=== PATIENT | female | born 1940 | race Caucasian/White ===

== ENCOUNTER 2024-07-23 10:27 | Emergency (ER) | payer OTHER ==
[2024-07-23] MEDS ORDERED: ONDANSETRON 4 MG/2 ML VIAL ONE (11:25)
[2024-07-23] MEDS ORDERED: NA CHLORIDE 0.9% 500 ML ONE (11:26)
[2024-07-23 11:47] LABS: Absolute Lymphocytes (CBC) 1.1 K/uL (0.7-4.9); Absolute Monocytes 0.3 K/uL (0.1-1.3); Absolute Neutrophil 3.5 K/uL (1.8-8.0); Basophils % 0.6 % (0-1.3); Eosinophils % 0.3 % (0-4.4); Hematocrit 43.9 % (36.0-45.0); Hemoglobin 14.6 g/dL (12.0-15.0); Lymphocytes % 22.5 % (15.3-44.8); MCH 31.6 pg (27.0-35.0); MCHC 33.3 g/dL (32.0-36.0); MCV 94.9 fL (80-100); MPV 8.1 fL (7.6-11.3); Monocytes % 5.9 % (3.3-12.3); Neutrophils % 70.7 % (41.7-73.7); Platelets 139 thou/uL (152-406); RBC Red Blood Cell Count 4.62 M/uL (3.86-4.86); Red Cell Distribution Width 15.8 % (12.1-15.2)
[2024-07-23 12:46] LABS: Albumin 3.3 g/dL (3.4-5.0); Albumin/Globulin Ratio 0.7 (1.1-1.8); Anion Gap 6.6 mEq/L (5.0-15.0); Bilirubin Total 1.5 mg/dL (0.2-1.0); Globulin 4.6 g/dL (2.3-3.5); Potassium 3.6 mEq/L (3.5-5.1); Protein, Total 7.9 g/dL (6.4-8.2)
--- NOTE | 2024-07-23 13:46 | RAD REPORT ---
EXAMINATION: CT Abdomen Pelvis Wo Contrast CLINICAL INDICATION: Female, 84 years old. Abd pain;Nausea / vomiting TECHNIQUE: CT abdomen and pelvis was performed, without IV contrast, as per department protocol. Axia l, sagittal and coronal reconstructions were obtained. One or more of the following dose reduction techniques were used: Automated exposure control, adjustment of the mA and kV according to the patien t size, and iterative reconstruction. Unless otherwise specified, incidental findings do not require dedicated imaging follow-up. COMPARISON: 07/28/2017 FINDINGS: The lack of intravenous contrast limits the sensitivity of this exam for evaluation of solid visceral organs, vascular structures, and retroperitoneum. LOWER CHEST: Mild left more than right bronchiectatic changes and bronchial wall thickening, essentia lly unchanged.. LIVER: Normal in size and contour. No focal lesion. BILIARY SYSTEM: Status post cholecystectomy. SPLEEN: Normal size. No focal lesion. 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 PANCREAS: No mass, ductal dilation, or faisal-pancreatic fluid. ADRENALS: Normal; no mass. KIDNEYS AND URETERS: Normal size and contour. No hydronephrosis. Multiple bilateral renal hypoattenua ting exophytic lesions, suggestive of cysts, not significantly changed. URINARY BLADDER: Normal contour. GASTROINTESTINAL TRACT: No evidence of bowel obstruction, significant free fluid, free air or abscess . Distal colonic diverticulosis. APPENDIX: Normal appendix. LYMPH NODES: No lymphadenopathy. MUSCULOSKELETAL: No acute or suspicious osseous abnormality. ADDITIONAL FINDINGS: Fusiform infrarenal abdominal aortic aneurysm measuring 3.5 x 3 cm in greatest d iameters, increased in size from 2.8 cm in greatest diameter on the prior exam. . IMPRESSION: No acute or concerning abnormalities in the abdomen or pelvis, with evaluation limited by lack of IV contrast. Enlarging fusiform infrarenal abdominal aortic aneurysm now measuring 3.5 cm in greatest caliber. For management of fusiform aneurysmal abdominal aortas: Recommend follow-up every 2 years. Note: For AAA enlargement of > 0.5 cm in 6 months or > 1 cm in 1 year, recommend vascular consultat ion. References: J Am Ayala Radiol 2013; 10(10):789-794; J Vasc Surg. 2018; 67:2-77 Other incidental findings as above, stable.
--- NOTE | 2024-07-23 13:54 | EDPHYS ---
Physician Documentation [facility] Name: Tomasa Daniel Age: 84 yrs Sex: Female : 1940 Arrival Date: 07/23/2024 Time: 10:27 Bed 18 Private MD: ED Physician Anthony Powers HPI: 07/23 13:20 This 84 yrs old Female presents to ER via Wheelchair with complaints of rn Nausea/Vomiting, Dizziness. 13:20 The patient presents to the emergency department with nausea, vomiting, diarrhea, rn abdominal pain. Onset: The symptoms/episode began/occurred 3 day(s) ago. Possible causes: unknown. The symptoms are aggravated by nothing. The symptoms are alleviated by nothing. Associated signs and symptoms: Pertinent positives: abdominal pain, diarrhea, nausea, Pertinent negatives: GI bleeding. Severity of symptoms: At their worst the symptoms were mild in the emergency department the symptoms are unchanged. The patient has not experienced similar symptoms in the past. Patient reports 3 days of nausea/vomiting/diarrhea. Mild abdominal cramping. Feels generalized weakness. No blood in stool. No fever or chills. Actually has not had vomiting or diarrhea since yesterday.. Historical: - Allergies: 10:32 Codeine; ll1 - PMHx: 10:32 Diabetes - NIDDM; Depression; Hypertension; Diverticulitis; Myocardial infarction; ll1 - Immunization history:: Adult Immunizations up to date. - Infectious Disease History:: Denies. - Social history:: Smoking status: Patient denies any tobacco usage or history of. - Family history:: not pertinent. - Hospitalizations: : No recent hospitalization is reported. ROS: 13:20 Constitutional: Negative for fever, chills, and weight loss, Neck: Negative for injury, rn pain, and swelling, Cardiovascular: Negative for chest pain, palpitations, and edema, Respiratory: Negative for shortness of breath, cough, wheezing, and pleuritic chest pain, Abdomen/GI: Positive for abdominal pain with nausea/vomiting/diarrhea MS/Extremity: Negative for injury and deformity, Skin: Negative for injury, rash, and discoloration, Neuro: Positive for generalized weakness Exam: 13:20 Constitutional: This is a well developed, well nourished patient who is awake, alert, rn and in no acute distress. ENT: moist mucous membranes Cardiovascular: Regular rate and rhythm. No pulse deficits. Respiratory: No increased work of breathing, no retractions or nasal flaring. Abdomen/GI: Soft, no focal tenderness. No rebound or guarding. No masses. MS/ Extremity: Pulses equal, no cyanosis. Neuro: Awake and alert, GCS 15 Vital Signs: 10:38 BP 134 / 79; Pulse 88; Resp 17; Temp 98; Pulse Ox 95% on R/A; Weight 102.06 kg; Height ll1 5 ft. 0 in. ; Pain 0/10; 13:30 BP 160 / 75; Pulse 87; Resp 18; Pulse Ox 95% on R/A; db 14:00 BP 142 / 76; Pulse 89; Resp 18; Pulse Ox 95% on R/A; db 14:30 BP 137 / 65; Pulse 93; Resp 18; Pulse Ox 95% ; db 10:38 Body Mass Index 43.94 (102.06 kg, 152.4 cm) ll1 10:38 Pain Scale: Adult ll1 MDM: 10:35 Medical Screening Exam initiated rn 13:52 Differential diagnosis: Nonspecific abd pain, gastritis, pancreatitis, diverticulitis, rn viral gastroenteritis, gastroenteritis. Data reviewed: vital signs, nurses notes, lab test result(s), radiologic studies, CT scan, and as a result, I will discharge patient. Counseling: I had a detailed discussion with the patient and/or guardian regarding the historical points, exam findings, and any diagnostic results supporting the discharge/admit diagnosis, lab results, radiology results, the need for outpatient follow up, to return to the emergency department if symptoms worsen or persist or if there are any questions or concerns that arise at home. Response to treatment: the patient's symptoms have markedly improved after treatment, patient is well hydrated. and as a result, I will discharge patient. Special discussion: I discussed with the patient/guardian in detail that at this point there is no indication for admission to the hospital. It is understood, however, that if the symptoms persist or worsen the patient needs to return immediately for re-evaluation. Based on the history and exam findings, there is no indication for further emergent testing or inpatient evaluation. I discussed with the patient/guardian the need to see the primary care provider for further evaluation of the symptoms. ED course: I have personally reviewed all of the results, including but not limited to blood tests and imaging deemed necessary to safely discharge this patient at this time. All results given to and printed out for patient. I personally went over all the results with the patient and answered all questions. Patient will follow-up with PCP and or specialist as discussed. Return precautions given and understood. Saccular aortic aneurysm has grown in size but no acute findings and unrelated to today's symptoms of nausea and diarrhea. Instructed her to follow-up with her PCP and vascular.. 07/23 10:51 Order name: CBC with Diff; Complete Time: 12:47 rn 07/23 10:51 Order name: CMP; Complete Time: 12:47 rn 07/23 10:51 Order name: Lipase; Complete Time: 12:47 rn 07/23 10:51 Order name: Urinalysis w/ reflexes rn 07/23 10:55 Order name: Flu; Complete Time: 13:39 rn 07/23 12:56 Order name: Abdomen ; Complete Time: 13:47 EDMS 07/23 10:51 Order name: IV Saline Lock; Complete Time: 11:43 rn 07/23 10:51 Order name: Labs collected and sent; Complete Time: 11:43 rn 07/23 11:53 Order name: Labs - recollect needed: green top; Complete Time: 12:22 iw Administered Medications: 11:35 Drug: Ondansetron IVP 4 mg IVP once; over 2 minutes Route: IVP; Site: right forearm; db 14:38 Follow up: Response: No adverse reaction db 11:35 Drug: NS 0.9% IV 500 ml 500 ml IV at 1 bolus once; to be given as a bolus over 30 db minutes Volume: 500 ml; Route: IV; Rate: 1 bolus; Site: right wrist; 14:38 Follow up: Response: No adverse reaction; IV Status: Completed infusion; IV Intake: db 500ml Disposition Summary: 07/23/24 13:53 Discharge Ordered Notes: Location: Home rn Problem: new rn Symptoms: have improved rn Condition: Stable rn Diagnosis - Nausea with vomiting, unspecified rn - Dehydration rn Followup: rn - With: Private Physician - When: As needed - Reason: Recheck today's complaints, Re-evaluation by your physician Discharge Instructions: - Discharge Summary Sheet rn - Dehydration, Adult rn - Nausea and Vomiting, Adult rn Forms: - Medication Reconciliation Form rn - Antibiotic phd internship - Prescription Opioid Use rn - Patient Portal Instructions rn - Leadership Thank You Letter rn Prescriptions: - ondansetron 4 mg Oral Tablet,disintegrating - take 1 tablet ORAL route every 8 hours As needed; 10 tablet; Refills: 0, rn Product Selection Permitted Signatures: Dispatcher [employer] EDNika Jeffery, RN Anthony Mendenhall MD MD rn Lewis, Lynsay, RN RN ll1 Grisel Mohamud RN RN db Corrections: (The following items were deleted from the chart) 10:51 10:51 CBC+H.LAB.BRZ ordered. EDMS EDMS 10:51 10:51 COMPREHENSIVE METABOLIC PANEL+C.LAB.BRZ ordered. EDMS EDMS 10:51 10:51 LIPASE+C.LAB.BRZ ordered. EDMS EDMS 10:51 10:51 Urinalysis+U.LAB.BRZ ordered. EDMS EDMS 10:51 10:51 Abdomen Pelvis W Con+CT.RAD.BRZ ordered. EDMS EDMS
--- NOTE | 2024-07-23 13:54 | ER ---
Nurse's Notes [facility] Name: Tomasa Daniel Age: 84 yrs Sex: Female : 1940 Arrival Date: 07/23/2024 Time: 10:27 Bed 18 Private MD: Diagnosis: Nausea with vomiting, unspecified;Dehydration Presentation: 07/23 10:38 Chief complaint: Patient states: N/V, weak, dizzy, feels hot for 3 days. Coronavirus ll1 screen: Client denies travel out of the [place] in the last 14 days. fatigue, nausea, vomiting. Client presents with at least one sign or symptom that may indicate coronavirus-19. Standard/surgical mask placed on the client. Ebola Screen: Patient denies travel to an Ebola-affected area in the 21 days before illness onset. Initial Sepsis Screen: Does the patient meet any 2 criteria? No. Patient's initial sepsis screen is negative. Does the patient have a suspected source of infection? No. Patient's initial sepsis screen is negative. Risk Assessment: Do you want to hurt yourself or someone else? Patient reports no desire to harm self or others. Onset of symptoms was July 21, 2024. 10:38 Method Of Arrival: Wheelchair ll1 10:38 Acuity: DONA 3 ll1 Historical: - Allergies: 10:32 Codeine; ll1 - PMHx: 10:32 Diabetes - NIDDM; Depression; Hypertension; Diverticulitis; Myocardial infarction; ll1 - Immunization history:: Adult Immunizations up to date. - Infectious Disease History:: Denies. - Social history:: Smoking status: Patient denies any tobacco usage or history of. - Family history:: not pertinent. - Hospitalizations: : No recent hospitalization is reported. Screenin:44 [facility] ED Fall Risk Assessment (Adult) History of falling in the last 3 months, db including since admission No falls in past 3 months (0 pts) Confusion or Disorientation No (0 pts) Intoxicated or Sedated No (0 pts) Impaired Gait Yes (1 pt) Mobility Assist Device Used Yes (1 pt) Altered Elimination No (0 pt) Score/Fall Risk Level 0 - 2 = Low Risk Oriented to surroundings, Maintained a safe environment. Abuse screen: Denies threats or abuse. Denies injuries from another. Nutritional screening: No deficits noted. Tuberculosis screening: No symptoms or risk factors identified. Assessment: 11:25 Reassessment: Patient appears in no apparent distress at this time. Patient and/or db family updated on plan of care and expected duration. Pain level reassessed. Patient is alert, oriented x 3, equal unlabored respirations, skin warm/dry/pink. General: Appears in no apparent distress. comfortable, Behavior is calm, cooperative. Pain: Denies pain. Neuro: Level of Consciousness is awake, alert, obeys commands, Oriented to person, place, time, situation. Respiratory: Airway is patent Respiratory effort is even, unlabored, Respiratory pattern is regular, symmetrical. GI: Abdomen is obese, Reports nausea, vomiting. 14:38 Reassessment: Patient appears in no apparent distress at this time. Patient and/or db family updated on plan of care and expected duration. Pain level reassessed. Patient is alert, oriented x 3, equal unlabored respirations, skin warm/dry/pink. General: Appears in no apparent distress. comfortable, Behavior is calm, cooperative. Neuro: Level of Consciousness is awake, alert, obeys commands, Oriented to person, place, time, situation. Vital Signs: 10:38 BP 134 / 79; Pulse 88; Resp 17; Temp 98; Pulse Ox 95% on R/A; Weight 102.06 kg; Height ll1 5 ft. 0 in. ; Pain 0/10; 13:30 BP 160 / 75; Pulse 87; Resp 18; Pulse Ox 95% on R/A; db 14:00 BP 142 / 76; Pulse 89; Resp 18; Pulse Ox 95% on R/A; db 14:30 BP 137 / 65; Pulse 93; Resp 18; Pulse Ox 95% ; db 10:38 Body Mass Index 43.94 (102.06 kg, 152.4 cm) ll1 10:38 Pain Scale: Adult ll1 ED Course: 10:30 Patient arrived in ED. im 10:32 Arm band placed on. ll1 10:35 Anthony Powers MD is Attending Physician. rn 10:39 Triage completed. ll1 10:53 Grisel Mohamud, RN is Primary Nurse. db 11:32 Missed attempt(s): 22 gauge in right antecubital area. Bleeding controlled, band aid db applied, catheter tip intact. 11:33 No provider procedures requiring assistance completed. db 11:35 Initial lab(s) drawn, by me, sent to lab. Inserted saline lock: 22 gauge in right db forearm, using aseptic technique. Blood collected. Flushed with 10 mL NS. 11:45 Patient has correct armband on for positive identification. Bed in low position. Call db light in reach. Side rails up X2. Pulse ox on. NIBP on. Warm blanket given. Pillow given. 12:18 Lab(s) recollected, by me, sent to lab. db 12:56 Abdomen In Process Unspecified. EDMS 14:38 Provided Education on: DISCHARGE AND FOLLOWUP. db 14:38 IV discontinued, intact, bleeding controlled, No redness/swelling at site. db Administered Medications: 11:35 Drug: Ondansetron IVP 4 mg IVP once; over 2 minutes Route: IVP; Site: right forearm; db 14:38 Follow up: Response: No adverse reaction db 11:35 Drug: NS 0.9% IV 500 ml 500 ml IV at 1 bolus once; to be given as a bolus over 30 db minutes Volume: 500 ml; Route: IV; Rate: 1 bolus; Site: right wrist; 14:38 Follow up: Response: No adverse reaction; IV Status: Completed infusion; IV Intake: db 500ml Medication: 14:38 VIS not applicable for this client. db Intake: 14:38 IV: 500ml; Total: 500ml. db Outcome: 13:53 Discharge ordered by . rn 14:38 Discharged to home via wheelchair, with family, db 14:38 Condition: stable 14:38 Discharge instructions given to patient, family, Instructed on discharge instructions, follow up and referral plans. Prescriptions given X 1, 14:40 Patient left the ED. db Signatures: Dispatcher [employer] EDIN Anthony Powers MD MD rn Lewis, Lynsay, RN RN ll1 Grisel Mohamud RN RN Sanjuanita Shannon
[2024-07-23 14:10] LABS: Specific Gravity 1.016 (1.005-1.030); Sqamous Epithelial <5 /HPF (None Seen); Urine Bacteria None Seen /HPF (<20); Urine Bilirubin NEGATIVE (Negative); Urine Blood Negative (Negative); Urine Clarity Clear (Clear); Urine Color Yellow (Yellow); Urine Culture Reflex Order NOT NEEDED; Urine Glucose 4+ (Negative); Urine Ketones NEGATIVE (Negative); Urine Microscopic Reflex YN ORDER UMIC; Urine Mucus Slight /HPF (None Seen); Urine Nitrite NEGATIVE (Negative); Urine Protein NEGATIVE (Negative); Urine RBC None Seen /HPF (None Seen); Urine Urobilinogen 1+ (Normal); Urine WBC <5 /HPF (<5)
[2024-07-23 14:58] VITALS: TEMP 98; O2SAT 95
[2024-07-23 15:01] VITALS: BP 137/65
== END 2024-07-23 14:40 | disposition home or self-care (01) ==
LOC: ER 10:27
DX: R11.2 Nausea with vomiting, unspecified (principal); E86.0 Dehydration; E11.9 Type 2 diabetes mellitus without complications; I10 Essential (primary) hypertension
CPT/HCPCS: 96361; 85025; 81001; 36415; 83690; 80053; 87804 ×2; 74176; 96374; 99284; J2405; J7040

== ENCOUNTER 2025-05-11 10:15 | Emergency (ER) | payer OTHER ==
[2025-05-11] MEDS ORDERED: NA CHLORIDE 0.9% 1,000 ML ONE (10:30)
--- OUTSIDE RECORDS SUMMARY | 2025-05-11 10:32 | XMS REPORT | Continuity of Care Document ---
Author Name Unknown Address [address] [facility] [address] [place] [address] [facility] [place] Address [address] [facility] [address] [place] [address] Care Team Providers Care Sample Stitcher Name Role Phone Esha Ramirez Primary Care Physician [phone] Attending Clinician Unavailable BARTOLO NORIEGA Attending Clinician Unavailable Hari BARTON, Bartolo Attending Clinician [phone], [facility] Attending Clinician Unavailable Doctor Unassigned, [place] Attending Clinician U princess Noriega MD, Bartolo Attending Clinician [phone], [facility] Attending Clinician Unavailable JAYLIN EASLEY Attending Clinician Unavailab Jaylin Rubin DO Attending Clinician [phone] Maria Luisa Spicer RN Attending Clinician Unavailab LISANDRO Austin Attending Clinician Unavailable Mary Newton DO Attending Clinician [phone] Lisandro Kowalski MD Attending Clinician [phone] Doctor Unassigned, [place] Attending Clinician U navailable ROLANDO VALENTIN Attending Clinician Unavailable ROLANDO VALENTIN Attending Clinician Unavailable Yulisa BARTON, Rosanne Overton Attending Clinician + [phone] TERESA PERALES Attending Clinician Unavailable Antonio Higgins MD Attending Clinician [phone] Kristen BARTON, Jumana Attending Clinician [phone] Teresa Perales MD Attending Clinician + [phone] Cali Vogt DO Attending Clinician [phone] MARK ROBERTSON Attending Clinician Unavail able Nurse, [facility] Pob Immunization Attending Clinician Unavailable Mark Robertson DO Attending Clinician [phone] Sury PAC, Sánchez S Attending Clinician [phone] SÁNCHEZ AG S Attending Clinician Unavailable Joan Lipscomb RN Attending Clinician [phone] Eleonora MACKENZIE, Chanel Chung Attending Clinician [phone] Rasheed Bishop MD Attending Clinician [phone] RASHEED BSIHOP Attending Clinician Unavailable JAYME TOLBERT Attending Clinician Unavailable Faviola RICHARDSON, K Manasa Attending Clinician [phone] Stephenie Carrion MD Attending Clinician [phone] Chau BARTON, kalee Wilfred Attending Clinician + Savi BARTON, Ward Lovelace Attending Clinici an Shanel Chinchilla MD Attending Clinician [phone] Favio Castle Attending Clinician [phone] FAVIO MCNEIL Attending Clinician Unavailable Kirti Olson RN Attending Clinician Unavailable Pc, [facility] Room 1 - Attending Clinician Andrew Werner MD, Sebastián KAna Luisa Attending Clinician + [phone] Visit, [facility] Nurse Attending Clinician Unavailable Mayo Donovan Attending Clinician [phone] MAYO GONZALEZ Attending Clinician Unavailable Sohail Rae DO Attending Clinician [phone] Lakeisha Pulido MD Attending Clinician [phone] LAKEISHA PULIDO Attending Clinician Unavailable Higinio RIBEIROLara Ángela Attending Clinician [phone] Admitting Clinician Unavailable JAYLIN EASLEY Admitting Clinician Unavailab LISANDRO Austin Admitting Clinician Unavailable Lisandro Kowalski MD Admitting Clinician [phone] ROSANNE MÁRQUEZ Admitting Clinician Unavailable JUMANA MELO Admitting Clinician Unavailable Jumana Melo MD Admitting Clinician [phone] TERESA PERALES Admitting Clinician Unavailable Teresa Perales MD Admitting Clinician [phone] Rasheed Bishop MD Admitting Clinician [phone] RASHEED BISHOP Admitting Clinician Unavailable LUC GROSS Admitting Clinician Un available Cali Vogt DO Admitting Clinician [phone] Shanel Chinchilla MD Admitting Clinician [phone] SHANEL CHINCHILLA Admitting Clinician Unavailable Lakeisha Pulido MD Admitting Clinician [phone] Payers Payer Name Policy Type Policy Number Effective Date Expirati on Date Source [facility] [id number] MIS MISC [id number] MEDICARE PART A \\T\\ B [id number] 2007 00:00:00 [place] [id number] 2015 00:00:00 [place] [employer] DUAL COMP CHOICE PPO [id number] 2024 00:00:00 Problems Condition Name Condition Details Condition Category Status Onset Date Resolution Date Last Treatment Date Treating Clinician Comments Source Acute on chronic diastolic congestive heart failure Acute on chronic diastolic congestive heart failure Disease Active 12-29 00:00: 00 [facility] Hypertensi ve emergency Hypertensi ve emergency Disease Active 12-29 00:00: 00 [facility] Infrarenal abdominal aortic aneurysm (AAA) without rupture Infrarenal abdominal aortic aneurysm (AAA) without rupture Disease Active 4-15 00:00: 00 [facility] 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 Disease Active 4-15 00:00: 00 [facility] Nausea and vomiting, unspecifie d vomiting type Nausea and vomiting, unspecifie d vomiting type Disease Active 4-14 00:00: 00 [facility] SOB (shortness of breath) SOB (shortness of breath) Disease Active 2020-09 2- 00:00: 00 [facility] Respirator y failure Respirator y failure Disease Active 2020-09 1-30 00:00: 00 [facility] SOB (shortness of breath) on exertion SOB (shortness of breath) on exertion Disease Active 2020-09 130 00:00: 00 [facility] Dehydratio n Dehydratio n Disease Active 2020-09 0-18 00:00: 00 [facility] NSVT (nonsustai tameka ventricula r tachycardi a) NSVT (nonsustai tameka ventricula r tachycardi a) Disease Active 623 00:00: 00 [facility] PAD (periphera l artery disease) PAD (periphera l artery disease) Disease Active 6 00:00: 00 [facility] CKD (chronic kidney disease) stage 3, GFR 30-59 ml/min CKD (chronic kidney disease) stage 3, GFR 30-59 ml/min Disease Active 623 00:00: 00 [facility] Pulmonary hypertensi on Pulmonary hypertensi on Disease Active 623 00:00: 00 [facility] Dizzy spells Dizzy spells Disease Active 6-23 00:00: 00 [facility] Longstandi ng persistent atrial fibrillati on Longstandi ng persistent atrial fibrillati on Disease Active 4-12 00:00: 00 [facility] ANNITA (obstructi ve sleep apnea) ANNITA (obstructi ve sleep apnea) Disease Active 4-12 00:00: 00 [facility] COVID-19 ruled out COVID-19 ruled out Disease Active 2019-09 2 00:00: 00 [facility] Preop cardiovasc ular exam Preop cardiovasc ular exam Disease Active 7 00:00: 00 [facility] Chronic diastolic congestive heart failure Chronic diastolic congestive heart failure Disease Active 7 00:00: 00 [facility] Small bowel obstructio n Small bowel obstructio n Disease Active 03-25 00:00: 00 [facility] CAD (coronary artery disease) CAD (coronary artery disease) Disease [facility] 12-26 00:00: 00 [facility] HTN (hypertens ion) HTN (hypertens ion) Disease [facility] 12-26 00:00: 00 [facility] Diabetes Diabetes Disease [facility] 12-26 00:00: 00 [facility] Incarcerat ed hernia Incarcerat ed hernia Disease Active 12-25 00:00: 00 [facility] Umbilical hernia Umbilical hernia Disease Active 09-21 00:00: 00 [facility] Epigastric pain Epigastric pain Disease Active 09-21 00:00: 00 [facility] Ventral hernia without obstructio n or gangrene Ventral hernia without obstructio n or gangrene Disease Active 09-23 00:00: 00 [facility] Morbid obesity with body mass index of 40.0-49.9 Morbid obesity with body mass index of 40.0-49.9 Disease Active 03-12 00:00: 00 [facility] Splenic artery aneurysm Splenic artery aneurysm Disease Active 02-27 00:00: 00 Overview: Formattin g of this note might be different from the original. Added automatic ally from request for surgery [id number] [facility] NOSE BLEED NOSE BLEED Active 06/20/2016 [facility] Diagnosis Active 2015-09 0 00:00: 00 2016-07-09 13:33:00 June Britton NSTEMI (non-ST elevated myocardial infarction ) NSTEMI (non-ST elevated myocardial infarction ) Disease Active 04-15 00:00: 00 [facility] Chest pain Chest pain Disease Active 04-15 00:00: 00 [facility] ILLNESS, UNSPECIFIE D ILLNESS, UNSPECIFIE D Active [facility] Diagnosis Active 2016-07-09 13:33:00 June Britton Epistaxis (disorder) Epistaxis (disorder) Resolved Problem 06/24/2016 [facility] Problem Resolve d 2016-06-24 03:36:03 June Britton Malignant tumor of cervix (disorder) Malignant tumor of cervix (disorder) Resolved Problem 06/24/2016 [facility] Problem Resolve d 2016-06-24 03:36:03 June Britton AAA (abdominal aortic aneurysm) AAA (abdominal aortic aneurysm) Disease Resolve d 2018-06-16 00:00:00 2018-06-16 21:54:16 [facility] Allergies, Adverse Reactions, Alerts Allergy Name Allergy Type Status Severity Reaction(s) Onset Date Inactive Date Treating Clinician Comments Source Fluconaz ole Propensi ty to adverse reaction s Active Unknown - See comments 2020-09 00:00: 00 [facility] FLUCONAZ OLE DRUG INGREDI Active Unknown-Cmnt 2020-09 00:00: 00 [facility] HYDROCOD ONE Allergy Active 03-23 10:20: 03 [facility] HYDROCOD ONE Allergy Active 03-23 10:20: 03 [facility] HYDROCOD ONE Allergy Active 03-23 10:20: 03 [facility] HYDROCOD ONE Allergy Active 03-23 10:20: 03 [facility] HYDROCOD ONE Allergy Active 03-23 10:20: 03 [facility] HYDROCOD ONE Allergy Active 03-23 10:20: 03 [facility] HYDROCOD ONE Allergy Active 03-23 10:20: 03 [facility] HYDROCOD ONE Allergy Active 03-23 10:20: 03 [facility] HYDROCOD ONE Allergy Active 03-23 10:20: 03 [facility] HYDROCOD ONE Allergy Active 03-23 10:20: 03 [facility] HYDROCOD ONE Allergy Active 03-23 10:20: 03 [facility] HYDROCOD ONE Allergy Active 03-23 10:20: 03 [facility] HYDROCOD ONE Allergy Active 03-23 10:20: 03 [facility] HYDROCOD ONE Allergy Active 03-23 10:20: 03 [facility] HYDROCOD ONE Allergy Active 03-23 10:20: 03 [facility] HYDROCOD ONE Allergy Active 03-23 10:20: 03 [facility] HYDROCOD ONE Allergy Active 03-23 10:20: 03 [facility] HYDROCOD ONE Allergy Active 03-23 10:20: 03 [facility] HYDROCOD ONE Allergy Active 03-23 10:20: 03 [facility] HYDROCOD ONE Allergy Active 03-23 10:20: 03 [facility] HYDROCOD ONE Allergy Active 03-23 10:20: 03 [facility] HYDROCOD ONE Allergy Active 03-23 10:20: 03 [facility] HYDROCOD ONE Allergy Active 03-23 10:20: 03 [facility] HYDROCOD ONE Allergy Active 03-23 10:20: 03 [facility] HYDROCOD ONE Allergy Active 03-23 10:20: 03 [facility] HYDROCOD ONE Allergy Active 03-23 10:20: 03 [facility] HYDROCOD ONE DRUG INGREDI Active High N/V 03-12 00:00: 00 [facility] Hydrocod one Propensi ty to adverse reaction s Active Nausea and/or Vomiting 03-12 00:00: 00 [facility] acetamin ophen-HY DROcodon e<sup>1< /sup> acetamin ophen-HY DROcodon e<sup>1< /sup> Active Memoria jhonathan Britton Social History Social Habit Start Date Stop Date Quantity Comments Source Gender [facility] ASSERTION Not [facility] History of Occupation [facility] [employer] [facility] Alcoholic beverage intake 2024-12-16 00:00:00 2024-12-16 00:00:00 0 /d [facility] History of Social function 2024-06-18 00:00:00 2024-06-18 00:00:00 [facility] Alcohol intake 2024-01-10 00:00:00 2024-01-10 00:00:00 0 /d [facility] Tobacco use and exposure 2023-09-18 00:00:00 2023-09-18 00:00:00 Smokeless tobacco non-user [facility] Exposure to SARS-CoV-2 (event) 2022-12-16 00:00:00 2022-12-26 12:44:00 Not sure [facility] History SDOH Financial 2022-09-04 00:00:00 2022-09-04 00:00:00 5 [facility] History SDOH Food Worry 2022-09-04 00:00:00 2022-09-04 00:00:00 1 [facility] History SDOH Food Scarcity 2022-09-04 00:00:00 2022-09-04 00:00:00 1 [facility] History SDOH Transport Med 2022-09-04 00:00:00 2022-09-04 00:00:00 2 [facility] History SDOH Transport Non-Med 2022-09-04 00:00:00 2022-09-04 00:00:00 2 [facility] Education 2020-09-08 00:00:00 2020-09-08 00:00:00 8 [facility] Social History 2016-06-21 07:37:22 2016-06-21 07:37:22 [facility] Sex assigned at 1940 00:00:00 1940 00:00:00 [facility] Smoking Status Start Date Stop Date Source Never smoked tobacco [facility] Medications Ordered Medication Name Filled Medication Name Start Date Stop Date Current Medication? Ordering Clinician Indication Dosage Frequency Signature (SIG) Comments Components Source empaglifloz in 10 mg tablet 18 00:00: 00 Yes [id number] 10mg Take 1 tablet by mouth in the morning. [facility] furosemide 40 mg tablet 5- 00:00: 00 Yes [id number] 40mg Take 1 tablet by mouth every morning and evening. [facility] metoprolol tartrate 25 mg tablet 5- 00:00: 00 Yes [id number] 12.5mg Take 0.5 tablets by mouth in the morning and 0.5 tablets in the evening. [facility] atorvastati n 40 mg tablet 5- 00:00: 00 Yes [id number] 40mg Take 1 tablet by mouth at bedtime. [facility] apixaban 5 mg tablet 5- 00:00: 00 Yes [id number] 5mg Take 1 tablet by mouth in the morning and 1 tablet in the evening. Indication s: atrial fibrillati on [facility] ezetimibe 10 mg tablet 4-04 00:00: 00 Yes 10mg Take 1 tablet by mouth in the morning. [facility] spironolact one 25 mg tablet 3-07 00:00: 00 Yes [id number] 25mg Take 1 tablet by mouth in the morning. [facility] furosemide 40 mg tablet 1-28 00:00: 00 01-12 00:00 :00 No [id number] 40mg Take 1 tablet by mouth every morning and evening. [facility] apixaban 5 mg tablet 2023-09 0-31 00:00: 00 01-12 00:00 :00 No [id number] 5mg Take 1 tablet by mouth in the morning and 1 tablet in the evening. Indication s: atrial fibrillati on [facility] empaglifloz in 10 mg tablet 1 0-25 00:00: 00 05-03 00:00 :00 No [id number] 10mg Take 1 tablet by mouth in the morning. [facility] spironolact one 25 mg tablet 0 9-17 00:00: 00 Yes [id number] 25mg Take 1 tablet by mouth in the morning. [facility] furosemide 40 mg tablet 2023-0 8-01 00:00: 00 -24 00:00 :00 No [id number] 40mg Take 1 tablet by mouth in the morning. [facility] empaglifloz in 10 mg tablet 04-08 00:00: 00 07-10 00:00 :00 No [id number] 10mg Take 1 tablet by mouth in the morning. [facility] spironolact one 25 mg tablet 04-08 00:00: 00 06-02 00:00 :00 No [id number] 25mg Take 1 tablet by mouth in the morning. [facility] furosemide 40 mg tablet 04-08 00:00: 00 04-16 00:00 :00 No [id number] 80mg Take 2 tablets by mouth every morning and evening. [facility] furosemide (LASIX) injection 20 mg 04-07 19:15: 00 04-07 19:27 :00 No 20mg 20 mg, IV Push, ONCE, 1 dose, On Sat04/07/24 at 1415, ROBERT [facility] tramadol HCl (TRAMADOL ORAL) 02-10 13:12: 20 Yes 50mg Take 50 mg by mouth. [facility] apixaban 5 mg tablet 01-13 00:00: 00 07-15 00:00 :00 No [id number] 5mg Take 1 tablet by mouth in the morning and 1 tablet in the evening. Indication s: atrial fibrillati on [facility] atorvastati n 40 mg tablet 01-09 00:00: 00 01-12 00:00 :00 No [id number] 40mg Take 1 tablet by mouth at bedtime. [facility] metoprolol tartrate 25 mg tablet 01-09 00:00: 00 01-12 00:00 :00 No [id number] 12.5mg Take 0.5 tablets by mouth in the morning and 0.5 tablets in the evening. [facility] KCL 10 mEq tablet 01-09 00:00: 00 04-16 00:00 :00 No [id number] 9104 10meq Take 1 tablet by mouth in the morning. [facility] furosemide 40 mg tablet 01-09 00:00: 00 04-08 00:00 :00 No [id number] 40mg Take 1 tablet by mouth every morning and evening. [facility] warfarin 5 mg tablet 01-09 00:00: 00 01-13 00:00 :00 No [id number] 9104 5mg Take 1 tablet by mouth every evening. [facility] furosemide (LASIX) tablet 40 mg 12-31 22:00: 00 Yes 40mg 40 mg, Oral, QAM+PM, First dose on Sat01/01/24 at 1700, Until Discontinu ed, Routine [facility] clonazePAM 0.25 mg disintegrat ing tablet 12-31 17:25: 38 Yes .25mg Take 1 tablet by mouth 2 (two) times daily as needed for Anxiety. [facility] sennosides- docusate sodium (SENOKOT-S) 8.6-50 mg per tablet 1 tablet 12-31 14:00: 00 Yes 1{tbl} 1 tablet, Oral, DAILY, First dose on Sat01/01/24 at 0900, Until Discontinu ed, Routine [facility] nitroglycer in 0.4 mg sublingual tablet 12-31 00:00: [id number] 1 tablet under the tongue every 5 (five) minutes as needed for Chest pain. [facility] magnesium oxide 400 mg (241.3 mg magnesium) tablet 12-31 00:00: 00 01-31 04:59 :00 No [id number] 9104 400mg Take 1 tablet by mouth in the morning for 30 days. [facility] atorvastati n 40 mg tablet 12-31 00:00: 00 01-09 00:00 :00 No [id number] 40mg Take 1 tablet by mouth at bedtime for 30 days. [facility] furosemide 40 mg tablet 12-31 00:00: 00 01-09 00:00 :00 No [id number] 40mg Take 1 tablet by mouth every morning and evening for 30 days. [facility] metoprolol tartrate 25 mg tablet 12-31 00:00: 00 01-09 00:00 :00 No [id number] 12.5mg Take 0.5 tablets by mouth in the morning and 0.5 tablets in the evening. Do all this for 30 days. [facility] KCL 10 mEq tablet 12-31 00:00: 00 01-09 00:00 :00 No [id number] 9104 10meq Take 1 tablet by mouth in the morning for 30 days. [facility] warfarin 5 mg tablet 12-31 00:00: 00 01-09 00:00 :00 No [id number] 9104 5mg Take 1 tablet by mouth every evening for 30 days. [facility] bisacodyL (DULCOLAX) tablet 5 mg 12-30 22:30: 00 12-30 21:59 :00 No 5mg 5 mg, Oral, ONCE, 1 dose, On Sat12/31/23 at 1730, Routine [facility] warfarin (COUMADIN) tablet 5 mg 12-30 22:00: 00 12-30 21:59 :00 No 5mg 5 mg, Oral, ONCE AT 1700, 1 dose, On Sat12/31/23 at 1700, Routine
INR Goal Range: 2-3
IND ICATION (More than one indication for warfarin can be selected): Atrial fibrillati on/flutter [facility] metoprolol tartrate (LOPRESSOR) tablet 12.5 mg 12-30 01:00: 00 Yes 12.5mg 12.5 mg, Oral, BID, First dose on Sat12/30/23 at 1999, Until Discontinu ed, Routine [facility] magnesium oxide (MAG-OX 400) tablet 400 mg 12-30 01:00: 00 01-03 00:59 :00 No 400mg 400 mg, Oral, BID, 8 doses, First dose on Sat12/30/23 at 1999, Last dose on Sat01/03/24 at 0800, Routine [facility] midodrine (PROAMATINE ) tablet 10 mg 12-30 01:00: 00 12-30 23:25 :05 No 10mg 10 mg, Oral, TID, First dose on Sat12/30/23 at 2000, Until Discontinu ed, Routine [facility] warfarin (COUMADIN) tablet 5 mg 12-30 01:00: 00 12-30 01:17 :00 No 5mg 5 mg, Oral, ONCE AT 1700, 1 dose, On Sat12/30/23 at 1999, Routine
INR Goal Range: 2-3
IND ICATION (More than one indication for warfarin can be selected): Atrial fibrillati on/flutter [facility] midodrine (PROAMATINE ) tablet 5 mg 12-29 20:00: 00 12-29 19:09 :00 No 5mg 5 mg, Oral, ONCE, 1 dose, On Sat12/30/23 at 1500, ROBERT [facility] midodrine (PROAMATINE ) tablet 5 mg 12-29 19:00: 00 12-29 19:05 :10 No 5mg 5 mg, Oral, TID, First dose on Sat12/30/23 at 1400, Until Discontinu ed, ROBERT [facility] sulfur hexafluorid e microsphr (LUMASON) injection 5 mL 12-29 15:15: 00 12-29 14:48 :00 No [id number] 5mL 5 mL, Intravenou s, ONCE, 1 dose, On Sat12/30/23 at 1015, Routine [facility] pregabalin (LYRICA) capsule 150 mg 12-29 14:00: 00 Yes 150mg 150 mg, Oral, DAILY, First dose on Sat12/30/23 at 0900, Until Discontinu ed, Routine [facility] SERTraline (ZOLOFT) tablet 50 mg 12-29 14:00: 00 Yes 50mg 50 mg, Oral, DAILY, First dose on Sat12/30/23 at 0900, Until Discontinu ed, Routine [facility] dexamethaso ne (DECADRON PHOSPHATE) injection 2 mg 12-29 11:00: 00 12-29 17:17 :00 No 2mg 2 mg, Intravenou s, Q6H, 2 doses, First dose on Sat12/30/23 at 0600, Last dose on Sat12/30/23 at 1200, 1 mL [facility] proMETHazin e (PHENERGAN) tablet 25 mg 12-29 05:59: 00 Yes 25mg 25 mg, Oral, Q6HPRN, Starting on Sat12/30/23 at 0059, Until Discontinu ed, Routine, Nausea and Vomiting (N/V) [facility] LORazepam (ATIVAN) injection 0.5 mg 12-29 05:56: 51 Yes .5mg 0.5 mg, Slow IV Push, QHSPRN, Starting on Sat12/30/23 at 0056, Until Discontinu ed, Routine, Anxiety, Agitation [facility] ondansetron (ZOFRAN (PF)) injection 4 mg 12-29 02:23: 31 Yes 4mg 4 mg, Slow IV Push, Q6HPRN, Nausea and Vomiting (N/V), Starting on Sat12/29/23 at 2123
Do ses of ondansetro n 16 mg and above need to be administer ed via IV piggyback. For Dose >=24mg ECG monitoring is advisable.
[facility] atorvastati n (LIPITOR) tablet 80 mg 12-29 02:00: 00 Yes 80mg 80 mg, Oral, QHS, First dose on Sat12/29/23 at 2100, Until Discontinu ed, Routine [facility] furosemide (LASIX) injection 40 mg 12-29 01:00: 00 12-31 14:15 :21 No 40mg 40 mg, Slow IV Push, Q12H, First dose on Sat12/29/23 at 2000, Until Discontinu ed, Routine [facility] losartan (COZAAR) tablet 50 mg 12-29 01:00: 00 12-29 20:45 :50 No 50mg 50 mg, Oral, BID, First dose on Sat12/29/23 at 1999, Until Discontinu ed, Routine [facility] apixaban (ELIQUIS) tablet 5 mg 12-29 01:00: 00 12-29 20:54 :18 No [id number] 5mg 5 mg, Oral, BID, First dose on Sat12/29/23 at 1999, Until Discontinu ed, Routine
Indicatio ns: Non-Valvul ar Atrial Fibrillati on [facility] amLODIPine (NORVASC) tablet 5 mg 12-29 00:45: 00 12-29 20:45 :50 No 5mg 5 mg, Oral, DAILY, First dose on Sat12/29/23 at 1945, Until Discontinu ed, Routine [facility] hydralAZINE (APRESOLINE ) injection 10 mg 12-28 22:43: 20 Yes 10mg 10 mg, Slow IV Push, Q4HPRN, Starting on Sat12/29/23 at 1743, Until Discontinu ed, Routine, DBP=>100; SBP=>180 [facility] ondansetron (ZOFRAN (PF)) injection 4 mg 12-28 22:42: 44 12-29 02:24 :04 No 4mg 4 mg, Slow IV Push, Q6HPRN, Nausea and Vomiting (N/V), Starting on Sat12/29/23 at 1742
Do ses of ondansetro n 16 mg and above need to be administer ed via IV piggyback. For Dose >=24mg ECG monitoring is advisable.
[facility] Sliding Scale Insulin - Lispro (HumaLOG) 12-28 22:00: 00 Yes Subcutaneo us, TID MEALS+HS, First dose on Sat12/29/23 at 1700, Until Discontinu ed, Routine [facility] carvediloL (COREG) tablet 6.25 mg 12-28 22:00: 00 12-29 20:45 :53 No 6.25mg 6.25 mg, Oral, BID MEALS, First dose on Sat12/29/23 at 1700, Until Discontinu ed, Routine [facility] butalbital- acetaminoph en-caff (ESGIC) 50-325-40 mg tablet 1 tablet 12-28 20:54: 03 Yes 1{tbl} 1 tablet, Oral, Q4HPRN, Starting on Sat12/29/23 at 1554, Until Discontinu ed, Routine, Headache [facility] morpHINE (2 mg/mL) injection 2 mg 12-28 20:53: 51 Yes 2mg 2 mg, Slow IV Push, Q4HPRN, Starting on Sat12/29/23 at 1553, Until Discontinu ed, Routine, Pain (scale 7-10) [facility] traMADoL (ULTRAM) tablet 50 mg 12-28 20:53: 41 Yes 50mg 50 mg, Oral, Q6HPRN, Starting on Sat12/29/23 at 1553, Until Discontinu ed, Routine, Pain (scale 4-6) [facility] acetaminoph en (TYLENOL) tablet 650 mg 12-28 20:53: 21 Yes 650mg 650 mg, Oral, Q6HPRN, Starting on Sat12/29/23 at 1553, Until Discontinu ed, Routine, Pain (scale 1-3), Temp > 38 C [facility] glucagon (GLUCAGEN DIAGNOSTIC KIT) injection 1 mg 12-28 18:56: 01 Yes 1mg 1 mg, Intramuscu lar, PRN, Starting on Sat12/29/23 at 1356, Until Discontinu ed, ROBERT, Blood Glucose < or = 70 mg/dL and patient is NPO, unable to swallow or has mental changes. [facility] dextrose 50 % in water (D50W) injection 25 mL 12-28 18:56: 01 Yes 25mL 25 mL, Slow IV Push, PRN, Starting on Sat12/29/23 at 1356, Until Discontinu ed, ROBERT, Blood Glucose < or = 70 mg/dL and patient is NPO, unable to swallow or has mental status changes. [facility] nitroglycer in (NITROSTAT) sublingual tablet 0.4 mg 12-28 18:54: 50 Yes .4mg 0.4 mg, Sublingual , Q5MIN PRN, Starting on Sat12/29/23 at 1354, Until Discontinu ed, Routine, Chest pain [facility] metoprolol (LOPRESSOR) injection 5 mg 12-28 18:15: 00 12-28 18:13 :00 No 5mg 5 mg, Slow IV Push, ONCE, 1 dose, On Sat12/29/23 at 1315, ROBERT [facility] furosemide (LASIX) injection 40 mg 12-28 17:45: 00 12-28 17:40 :00 No 40mg 40 mg, IV Push, ONCE, 1 dose, On Sat12/29/23 at 1245, ROBERT [facility] clonazePAM 0.25 mg disintegrat ing tablet 12-28 16:08: 07 Yes .25mg Take 1 tablet by mouth 2 (two) times daily as needed for Anxiety. [facility] tramadol HCl (TRAMADOL ORAL) 12-28 16:08: 07 Yes 50mg Take 50 mg by mouth. [facility] metoclopram victor hugo HCl (REGLAN) injection 10 mg 12-28 16:00: 00 12-28 15:57 :00 No 10mg 10 mg, Slow IV Push, ONCE, 1 dose, On Sat12/29/23 at 1100, ROBERT [facility] iopamidol (ISOVUE 370-500 mL) injection 96 mL 12-28 15:15: 00 12-28 15:30 :00 No [id number] 96mL 96 mL, Intravenou s, ONCE, 1 dose, On Sat12/29/23 at 1030, Routine [facility] NaCl 0.9% (NS) bolus infusion 500 mL 12-28 14:45: 00 12-28 15:33 :00 No 500mL at 999 mL/hr, 500 mL, IV Infusion, ONCE, 1 dose, On Sat12/29/23 at 0945, [facility] ondansetron (ZOFRAN (PF)) injection 4 mg 12-28 14:00: 00 12-28 14:01 :00 No 4mg 4 mg, Slow IV Push, ONCE, 1 dose, On Sat12/29/23 at 0900, [facility] metoprolol tartrate 25 mg tablet 16 00:00: 00 12-31 00:00 :00 No [id number] 12.5mg Take 0.5 tablets by mouth in the morning and 0.5 tablets in the evening. [facility] NaCl 0.9% (NS) bolus infusion 1,000 mL 04-12 14:30: 00 04-12 15:30 :00 No 1000mL at 999 mL/hr, 1,000 mL, IV Infusion, ONCE, 1 dose, On Sat04/12/23 at 0930, [facility] dicyclomine (BENTYL) injection 20 mg 04-12 14:30: 00 04-12 14:52 :00 No 20mg 20 mg, Intramuscu lar, ONCE, 1 dose, On Sat04/12/23 at 0930, [facility] maalox:diph enhydrAMINE :lidocaine 2 % viscous 1:1:1 ([facility]) oral suspension 15 mL 04-12 13:45: 00 04-12 14:49 :00 No 15mL 15 mL, Oral, ONCE, 1 dose, On Sat04/12/23 at 0845, Routine [facility] KCL (KLOR-CON M20) tablet 20 mEq 04-12 13:45: 00 04-12 14:45 :00 No 20meq 20 mEq, Oral, ONCE, 1 dose, On Sat04/12/23 at 0845, [facility] ondansetron (ZOFRAN (PF)) injection 4 mg 04-12 13:30: 00 04-12 13:34 :00 No 4mg 4 mg, Slow IV Push, ONCE, 1 dose, On Sat04/12/23 at 0830, ROBERT [facility] iopamidol (ISOVUE 370-500 mL) injection 75 mL 04-12 13:15: 00 04-12 13:15 :00 No [id number] 75mL 75 mL, Intravenou s, ONCE, 1 dose, On Sat04/12/23 at 0815, Routine [facility] ondansetron (ZOFRAN (PF)) injection 4 mg 04-12 12:15: 00 04-12 12:31 :00 No 4mg 4 mg, Slow IV Push, ONCE, 1 dose, On Sat04/12/23 at 0715, ROBERT [facility] FENTanyl PF (SUBLIMAZE (PF)) injection 25 mcg 04-12 12:15: 00 04-12 12:31 :00 No 25ug 25 mcg, Slow IV Push, ONCE, 1 dose, On Sat04/12/23 at 0715, STAT [facility] ondansetron 4 mg disintegrat ing tablet 04-12 00:00: 00 12-31 00:00 :00 No [id number] 4mg Take 1 tablet by mouth every 8 (eight) hours as needed for Nausea and Vomiting (N/V). [facility] pantoprazol e 40 mg EC tablet 04-12 00:00: 00 04-27 04:59 :00 No [id number] 40mg Take 1 tablet by mouth in the morning for 14 doses. [facility] clonazePAM 0.25 mg disintegrat ing tablet 12-26 13:06: 55 Yes .25mg Take 1 tablet by mouth 2 (two) times daily as needed for Anxiety. [facility] tramadol HCl (TRAMADOL ORAL) 12-26 13:06: 55 Yes 50mg Take 50 mg by mouth. [facility] metoprolol tartrate 25 mg tablet 2021-09 00:00: 00 05-01 00:00 :00 No [id number] 12.5mg Take 0.5 tablets by mouth in the morning and 0.5 tablets in the evening. [facility] clonazePAM 0.25 mg disintegrat ing tablet 2021-09 17:30: 10 Yes .25mg Take 0.25 mg by mouth 2 (two) times daily as needed for Anxiety. [facility] tramadol HCl (TRAMADOL ORAL) 2021-09 17:30: 10 Yes 50mg Take 50 mg by mouth. [facility] atorvastati n (LIPITOR) tablet 80 mg 2021-09 03:00: 00 Yes 80mg 80 mg, Oral, QHS, First dose on Sat09/04/22 at 2100, Until Discontinu ed, Routine [facility] magnesium oxide (MAG-OX 400) tablet 400 mg 2021-09 02:00: 00 09-09 01:59 :00 No 400mg 400 mg, Oral, BID, 8 doses, First dose on Sat09/04/22 at 2000, Last dose on Sat09/08/22 at 0800, Routine [facility] furosemide (LASIX) tablet 40 mg 2021-09 23:00: 00 Yes 40mg 40 mg, Oral, QAM+PM, First dose (after last modificati on) on Sat09/04/22 at 1700, Until Discontinu ed, Routine [facility] iopamidol (ISOVUE 370-500 mL) injection 100 mL 2021-09 16:55: 00 09-04 16:55 :00 No [id number] 100mL 100 mL, Intravenou s, ONCE, 1 dose, On Sat09/04/22 at 1115, Routine [facility] proMETHazin e (PHENERGAN) 12.5 mg in NaCl 0.9% (NS) 50 mL IV piggyback 2021-09 15:12: 43 Yes 12.5mg 12.5 mg, IV Piggyback, Q4HPRN, Starting on Sat09/04/22 at 0912, Until Discontinu ed, Routine, N/V unresponsi ve to Ondansetro n [facility] pregabalin (LYRICA) capsule 150 mg 2021-09 15:00: 00 Yes 150mg 150 mg, Oral, DAILY, First dose on Sat09/04/22 at 0900, Until Discontinu ed, Routine [facility] SERTraline (ZOLOFT) tablet 50 mg 2021-09 15:00: 00 Yes 50mg 50 mg, Oral, DAILY, First dose on Sat09/04/22 at 0900, Until Discontinu ed, Routine [facility] metoprolol tartrate (LOPRESSOR) tablet 12.5 mg 2021-09 14:00: 00 Yes 12.5mg 12.5 mg, Oral, BID, First dose on Sat09/04/22 at 0800, Until Discontinu ed, Routine [facility] apixaban (ELIQUIS) tablet 5 mg 2021-09 14:00: 00 Yes [id number] 5mg 5 mg, Oral, BID, First dose on Sat09/04/22 at 0800, Until Discontinu ed, Routine
Indicatio ns: Non-Valvul ar Atrial Fibrillati on [facility] ondansetron (ZOFRAN (PF)) injection 4 mg 2021-09 09:23: 07 Yes 4mg 4 mg, Slow IV Push, Q6HPRN, Starting on Sat09/04/22 at 0323, Until Discontinu ed, Routine, Nausea and Vomiting (N/V) [facility] acetaminoph en (TYLENOL) tablet 650 mg 2021-09 09:22: 58 Yes 650mg 650 mg, Oral, Q6HPRN, Starting on Sat09/04/22 at 0322, Until Discontinu ed, Routine, Pain (scale 1-3) [facility] traMADoL (ULTRAM) tablet 50 mg 2021-09 09:20: 09 Yes 50mg 50 mg, Oral, Q4HPRN, Starting on Sat09/04/22 at 0320, Until Discontinu ed, Pain (scale 4-6) [facility] nitroglycer in (NITROSTAT) sublingual tablet 0.4 mg 2021-09 09:19: 49 Yes .4mg 0.4 mg, Sublingual , Q5MIN PRN, Starting on Sat09/04/22 at 0319, Until Discontinu ed, Routine, Chest pain [facility] clonazePAM (KLONOPIN) tablet 0.5 mg 2021-09 09:18: 55 Yes .5mg 0.5 mg, Oral, BIDPRN, Starting on Sat09/04/22 at 0318, Until Discontinu ed, anxiety [facility] metoclopram victor hugo HCl (REGLAN) injection 10 mg 2021-09 04:45: 00 09-04 04:39 :00 No 10mg 10 mg, Slow IV Push, ONCE, 1 dose, On Sat09/03/22 at 2245, ROBERT [facility] clonazePAM 0.25 mg disintegrat ing tablet 05-23 15:25: 56 Yes .25mg Take 1 tablet by mouth 2 (two) times daily as needed for Anxiety. [facility] tramadol HCl (TRAMADOL ORAL) 05-23 15:25: 56 Yes 50mg Take 50 mg by mouth. [facility] furosemide 40 mg tablet 05-23 00:00: 00 12-31 00:00 :00 No [id number] 40mg Take 1 tablet by mouth every morning and evening. [facility] KCL 20 mEq tablet 2020-09 00:00: 00 12-31 00:00 :00 No [id number] 20meq Take 1 tablet by mouth daily. [facility] magnesium oxide 420 mg Tab 2020-09 00:00: 00 12-31 00:00 :00 No [id number] 400mg Take 400 mg by mouth daily. [facility] metoprolol tartrate 25 mg tablet 2020-09 00:00: 00 09-11 00:00 :00 No [id number] 12.5mg Take 0.5 tablets by mouth 2 (two) times daily. [facility] furosemide 40 mg tablet 2020-09 00:00: 00 05-23 00:00 :00 No [id number] 40mg Take 1 tablet by mouth daily. [facility] acetaminoph en 325 mg tablet 03-10 00:00: 00 Yes [id number] 650mg Take 2 tablets by mouth every 6 (six) hours as needed for Pain (scale 1-3). [facility] nitroglycer in 0.4 mg sublingual tablet 03-10 00:00: 00 12-31 00:00 :00 [id number] 1 tablet under the tongue every 5 (five) minutes as needed for Chest pain. [facility] apixaban 5 mg tablet 09-20 00:00: 00 12-31 00:00 :00 No [id number] 5mg Take 1 tablet by mouth 2 (two) times daily. Indication s: atrial fibrillati on [facility] SERTraline (ZOLOFT) 50 mg tablet 2019-09 00:00: 00 Yes [id number] 50mg Take 1 tablet by mouth daily. [facility] pregabalin (LYRICA) 150 mg capsule 2019-09 00:00: 00 Yes [id number] 150mg Take 1 capsule by mouth daily. [facility] atorvastati n 80 mg tablet 2019-09 00:00: 00 12-31 00:00 :00 No [id number] 80mg Take 1 tablet by mouth at bedtime. [facility] clopidogrel 75 mg tablet 04-16 00:00: 00 11-12 00:00 :00 No [id number] 75mg Take 1 tablet by mouth daily. [facility] clopidogrel 75 mg tablet 12-18 00:00: 00 04-16 00:00 :00 No [id number] 75mg Take 1 tablet by mouth daily. [facility] KCL 20 mEq tablet 12-23 00:00: 00 05-07 00:00 :00 No 20meq Take 1 tablet by mouth 2 (two) times daily. [facility] atorvastati n 80 mg tablet 2016-09 00:00: 00 05-07 00:00 :00 No 80mg Take 1 tablet by mouth at bedtime. [facility] metoprolol tartrate 25 mg tablet 2016-09 00:00: 00 09-10 00:00 :00 No 25mg Take 1 tablet by mouth daily. Indication s: Take 1/2 tablet twice daily [facility] furosemide 20 mg tablet 10-12 00:00: 00 04-29 00:00 :00 No 40mg Take 2 tablets by mouth every morning and evening. [facility] Lipitor 2015-09 02:00: 00 No Notes: (Same as: Lipitor) June Britton metoprolol tartrate 25 mg oral tablet 2015-09 20:09: 00 Yes 12.5 mg = 0.5 tab, PO, BID, 0 Refill(s) June Britton Oxymetazoli ne hydrochlori de 0.5 MG/ML Nasal [place] [Afrin] 2015-09 14:00: 00 No Notes: (Same as: Afrin) June Britton Pepcid 2015-09 14:00: 00 No Notes: (Same as: Pepcid) June Britton Zantac 300 2015-09 14:00: 00 No 300 mg, Route: PO, Drug form: TAB, Daily, Dosing Weight 90.9, kg, Start date: 06/21/16 9:00:00 CDT, Duration: 30 day, Stop date: 07/20/16 9:00:00 CDT June Britton Streptococc us pneumoniae serotype 1 capsular antigen diphtheria [id number] protein conjugate vaccine / Streptococc us pneumoniae serotype 14 capsular antigen diphtheria [id number] protein conjugate vaccine / Streptococc us pneumoniae serotype 18C capsular antigen d 2015-09 14:00: 00 No Notes: Lightly roll vial (DO NOT SHAKE) before administra tion. (Same as: Prevnar 13) June Britton influenza virus vaccine, inactivated 2015-09 14:00: 00 No Notes: (Same as: Fluzone Quadrivale nt, Fluarix Quadrivale nt) For 3 years of age and older (0.5 mL IM) Shake well before use June Britton Brilinta 2015-09 14:00: 00 No Notes: (Same as: Brilinta) June Britton Zoloft 2015-09 14:00: 00 No Notes: (Same as: Zoloft) Sofiasusi jhonathan Tobi Lyrica 2015-09 14:00: 00 No Notes: (Same as: Lyrica) June Britton Insulin, Aspart, Human 2015-09 12:32: 00 No Notes: Roll in palms of hands gently; Do not shake vigorously . (Same as: NovoLOG) "single patient use only" WASTE: F/P - Black; E - Municipal Trash Bin Stable for 28 days at room temperatur e. Expires in days from ____Date June Sánchezann Glucagon 2015-09 12:32: 00 No 1 mg, Route: IM, Drug form: PDR/INJ, PRN, Dosing Weight 90.9, kg, PRN Blood Glucose Results, Priority: STAT, Start date: 06/21/16 7:32:00 CDT, Duration: 30 day, Stop date: 07/21/16 7:31:00 CDT June jhonathan Tobi Dextrose 50% Syringe 2015-09 12:32: 00 No 12.5 gm, 25 mL, Route: IVP, Drug Form: INJ, Dosing Weight 90.9, kg, PRN, PRN Blood Glucose Results, Start date: 06/21/16 7:32:00 CDT, Duration: 30 day, Stop date: 07/21/16 7:31:00 CDT June Britton Nasal [place] 0.65% solution 2015-09 09:00: 00 No Notes: (Same as: [place], Deep Sea Nasal [place]). June Britton Aspirin 2015-09 07:21: 00 No 0 Refill(s) June Britton tramadol hydrochlori de 50 MG Oral Tablet 2015-09 07:21: 00 Yes 50 mg = 1 tab, PO, BID, # 30 tab, 0 Refill(s) Memsusi Sánchezann Potassium Chloride 20 MEQ Extended Release Tablet 2015-09 07:21: 00 Yes 20 mEq = 1 tab, PO, Daily, # 30 tab, 3 Refill(s) Memsusi jhonathan Britton Furosemide 40 MG Oral Tablet [Lasix] 2015-09 07:21: 00 Yes 40 mg = 1 tab, PO, Daily, # 30 tab, 0 Refill(s) Memoria jhonathan Britton Ranitidine 300 MG Oral Tablet [Zantac] 2015-09 07:21: 00 Yes 300 mg = 1 tab, PO, Daily, # 30 tab, 0 Refill(s) Memsusi ring Tobi Amoxicillin 500 MG / Clavulanate 125 MG Oral Tablet 2015-09 07:21: 00 Yes PO, Q8H, 0 Refill(s) Sofiasusi ring Tobi Sertraline 50 MG Oral Tablet [Zoloft] 2015-09 07:21: 00 Yes 50 mg = 1 tab, PO, Daily, # 30 tab, 0 Refill(s) Memsusi ring Tobi atorvastati n 40 MG Oral Tablet [Lipitor] 2015-09 07:21: 00 Yes 40 mg = 1 tab, PO, Bedtime, # 30 tab, 0 Refill(s) Memsusi ring Tobi Glipizide 5 MG Oral Tablet 2015-09 07:21: 00 Yes 5 mg = 1 tab, PO, BID-Before Meals, # 30 tab, 1 Refill(s) Sofiasusi jhonathan Britton pregabalin 150 MG Oral Capsule [Lyrica] 2015-09 07:21: 00 Yes 150 mg = 1 cap, PO, BID, # 60 cap, 1 Refill(s) Memsusi Britton metoprolol tartrate 2015-09 07:21: 00 No BID, 0 Refill(s) Memsusi Britton Ticagrelor 90 MG Oral Tablet [Brilinta] 2015-09 07:21: 00 Yes 90 mg = 1 tab, PO, BID, 0 Refill(s) June Britton sodium chloride 0.9% 1000 ml INJ 1,000 mL 2015-09 07:11: 00 No 1,000 mL, Rate: 100 ml/hr, Infuse over: 10 hr, Route: IV, Dosing Weight 90.9 kg, Total Volume: 1,000, Start date: 06/21/16 2:11:00 CDT, Duration: 30 day, Stop date: 07/21/16 2:10:00 CDT June Britton Diphenhydra mine 2015-09 05:00: 00 No Notes: (Same as: Benadryl) June Britton Acetaminoph en 2015-09 05:00: 00 No Notes: Do not exceed 4 gm/day. (Same as: Tylenol) June Britton sodium chloride 0.9% INJ 250 mL 2015-09 04:57: 00 No 250 mL, Rate: lens engraver for use with blood product administra tion, Dosing Weight 90.909, kg, Route: IV, Total Volume: 250, Start Date: 06/20/16 23:57:00 CDT, Duration: 30 day, Stop date: 07/20/16 23:56:00 CDT, Replace Every: 24 hr June Britton pregabalin (LYRICA) 150 mg capsule 04-19 00:00: 00 09-10 00:00 :00 No 150mg Take 1 capsule by mouth daily. [facility] nitroglycer in (NITROSTAT) 0.4 mg sublingual tablet 04-19 00:00: 09-10 00:00 :[address] 1 tablet under the tongue every 5 (five) minutes as needed for Chest pain. [facility] SERTraline (ZOLOFT) 50 mg tablet 04-19 00:00: 00 09-10 00:00 :00 No 50mg Take 1 tablet by mouth daily. [facility] glipiZIDE (GLUCOTROL) 5 mg tablet 04-19 00:00: 00 05-07 00:00 :00 No 5mg Take 1 tablet by mouth 2 (two) times daily before breakfast and dinner. [facility] pantoprazol e (PROTONIX) 40 mg EC tablet 2016-0 8-04 00:00: 00 05-07 00:00 :00 No 40mg Take 1 tablet by mouth daily. [facility] Immunizations Ordered Immunization Name Filled Immunization Name Date Status Comments Source Influenza, adjuvanted, trivalent, PF (FLUAD) 2024-06-18 00:00:00 Completed [facility] TD, NOS 2024-06-02 00:00:00 Completed [facility] Pneumococcal Polysaccharide, PPSV23 (PNEUMOVAX) 2024-06-02 00:00:00 Completed [facility] Influenza, High-Dose, Trivalent, PF (FLUZONE) 2024-06-02 00:00:00 Completed [facility] Pneumococcal 13 Conjugate, PCV13 (Prevnar 13) 2024-06-02 00:00:00 Completed [facility] Influenza Virus Vaccine 2024-06-02 00:00:00 Completed [facility] SARS-COV-2 COVID-19 PFIZER VACCINE 2024-06-02 00:00:00 Completed [facility] Influenza Virus Vaccine,quad Im,preserve Free 65+ (FLUAD) 2024-06-02 00:00:00 Completed [facility] Influenza High Dose 2024-05-29 00:00:00 Completed [facility] TD, NOS 2024-02-11 13:40:00 Completed [facility] Pneumococcal Polysaccharide, PPSV23 (PNEUMOVAX) 2024-02-11 13:40:00 Completed [facility] Pneumococcal 13 Conjugate, PCV13 (Prevnar 13) 2024-02-11 13:40:00 Completed [facility] Influenza Virus Vaccine 2024-02-11 13:40:00 Completed [facility] SARS-COV-2 COVID-19 PFIZER VACCINE 2024-02-11 13:40:00 Completed [facility] Influenza Virus Vaccine,quad Im,preserve Free 65+ (FLUAD) 2024-02-11 13:40:00 Completed [facility] Influenza High Dose 2024-02-11 13:40:00 Completed [facility] TD, NOS 2024-01-14 00:00:00 Completed [facility] Pneumococcal Polysaccharide, PPSV23 (PNEUMOVAX) 2024-01-14 00:00:00 Completed [facility] Pneumococcal 13 Conjugate, PCV13 (Prevnar 13) 2024-01-14 00:00:00 Completed [facility] Influenza Virus Vaccine 2024-01-14 00:00:00 Completed [facility] SARS-COV-2 COVID-19 PFIZER VACCINE 2024-01-14 00:00:00 Completed [facility] Influenza Virus Vaccine,quad Im,preserve Free 65+ (FLUAD) 2024-01-14 00:00:00 Completed [facility] Influenza High Dose 2024-01-14 00:00:00 Completed [facility] TD, NOS 2024-01-13 00:00:00 Completed [facility] Pneumococcal Polysaccharide, PPSV23 (PNEUMOVAX) 2024-01-13 00:00:00 Completed [facility] Influenza High Dose 2024-01-13 00:00:00 Completed [facility] Pneumococcal 13 Conjugate, PCV13 (Prevnar 13) 2024-01-13 00:00:00 Completed [facility] Influenza Virus Vaccine 2024-01-13 00:00:00 Completed [facility] SARS-COV-2 COVID-19 PFIZER VACCINE 2024-01-13 00:00:00 Completed [facility] Influenza Virus Vaccine,quad Im,preserve Free 65+ (FLUAD) 2024-01-13 00:00:00 Completed [facility] TD, NOS 2024-01-10 14:20:00 Completed [facility] Pneumococcal Polysaccharide, PPSV23 (PNEUMOVAX) 2024-01-10 14:20:00 Completed [facility] Pneumococcal 13 Conjugate, PCV13 (Prevnar 13) 2024-01-10 14:20:00 Completed [facility] Influenza Virus Vaccine 2024-01-10 14:20:00 Completed [facility] SARS-COV-2 COVID-19 PFIZER VACCINE 2024-01-10 14:20:00 Completed [facility] Influenza Virus Vaccine,quad Im,preserve Free 65+ (FLUAD) 2024-01-10 14:20:00 Completed [facility] Influenza High Dose 2024-01-10 14:20:00 Completed [facility] TD, NOS 2024-01-10 11:00:00 Completed [facility] Pneumococcal Polysaccharide, PPSV23 (PNEUMOVAX) 2024-01-10 11:00:00 Completed [facility] Influenza High Dose 2024-01-10 11:00:00 Completed [facility] Pneumococcal 13 Conjugate, PCV13 (Prevnar 13) 2024-01-10 11:00:00 Completed [facility] Influenza Virus Vaccine 2024-01-10 11:00:00 Completed [facility] SARS-COV-2 COVID-19 PFIZER VACCINE 2024-01-10 11:00:00 Completed [facility] Influenza Virus Vaccine,quad Im,preserve Free 65+ (FLUAD) 2024-01-10 11:00:00 Completed [facility] TD, NOS 2024-01-10 10:20:00 Completed [facility] Pneumococcal Polysaccharide, PPSV23 (PNEUMOVAX) 2024-01-10 10:20:00 Completed [facility] Pneumococcal 13 Conjugate, PCV13 (Prevnar 13) 2024-01-10 10:20:00 Completed [facility] Influenza Virus Vaccine 2024-01-10 10:20:00 Completed [facility] SARS-COV-2 COVID-19 PFIZER VACCINE 2024-01-10 10:20:00 Completed [facility] Influenza Virus Vaccine,quad Im,preserve Free 65+ (FLUAD) 2024-01-10 10:20:00 Completed [facility] Influenza High Dose 2024-01-10 10:20:00 Completed [facility] TD, NOS 2024-01-10 00:00:00 Completed [facility] Pneumococcal Polysaccharide, PPSV23 (PNEUMOVAX) 2024-01-10 00:00:00 Completed [facility] Influenza High Dose 2024-01-10 00:00:00 Completed [facility] Pneumococcal 13 Conjugate, PCV13 (Prevnar 13) 2024-01-10 00:00:00 Completed [facility] Influenza Virus Vaccine 2024-01-10 00:00:00 Completed [facility] SARS-COV-2 COVID-19 PFIZER VACCINE 2024-01-10 00:00:00 Completed [facility] Influenza Virus Vaccine,quad Im,preserve Free 65+ (FLUAD) 2024-01-10 00:00:00 Completed [facility] TD, NOS 2024-01-10 00:00:00 Completed [facility] Pneumococcal Polysaccharide, PPSV23 (PNEUMOVAX) 2024-01-10 00:00:00 Completed [facility] Influenza High Dose 2024-01-10 00:00:00 Completed [facility] Pneumococcal 13 Conjugate, PCV13 (Prevnar 13) 2024-01-10 00:00:00 Completed [facility] Influenza Virus Vaccine 2024-01-10 00:00:00 Completed [facility] SARS-COV-2 COVID-19 PFIZER VACCINE 2024-01-10 00:00:00 Completed [facility] [facility] Influenza Virus Vaccine,quad Im,preserve Free 65+ (FLUAD) 2024-01-10 00:00:00 Completed [facility] TD, NOS 2024-01-08 00:00:00 Completed [facility] Pneumococcal Polysaccharide, PPSV23 (PNEUMOVAX) 2024-01-08 00:00:00 Completed [facility] Influenza High Dose 2024-01-08 00:00:00 Completed [facility] Pneumococcal 13 Conjugate, PCV13 (Prevnar 13) 2024-01-08 00:00:00 Completed [facility] Influenza Virus Vaccine 2024-01-08 00:00:00 Completed [facility] SARS-COV-2 COVID-19 PFIZER VACCINE 2024-01-08 00:00:00 Completed [facility] Influenza Virus Vaccine,quad Im,preserve Free 65+ (FLUAD) 2024-01-08 00:00:00 Completed [facility] TD, NOS 2024-01-07 00:00:00 Completed [facility] Pneumococcal Polysaccharide, PPSV23 (PNEUMOVAX) 2024-01-07 00:00:00 Completed [facility] Influenza High Dose 2024-01-07 00:00:00 Completed [facility] Pneumococcal 13 Conjugate, PCV13 (Prevnar 13) 2024-01-07 00:00:00 Completed [facility] Influenza Virus Vaccine 2024-01-07 00:00:00 Completed [facility] SARS-COV-2 COVID-19 PFIZER VACCINE 2024-01-07 00:00:00 Completed [facility] Influenza Virus Vaccine,quad Im,preserve Free 65+ (FLUAD) 2024-01-07 00:00:00 Completed [facility] TD, NOS 2024-01-06 00:00:00 Completed [facility] Pneumococcal Polysaccharide, PPSV23 (PNEUMOVAX) 2024-01-06 00:00:00 Completed [facility] Influenza High Dose 2024-01-06 00:00:00 Completed [facility] Pneumococcal 13 Conjugate, PCV13 (Prevnar 13) 2024-01-06 00:00:00 Completed [facility] Influenza Virus Vaccine 2024-01-06 00:00:00 Completed [facility] SARS-COV-2 COVID-19 PFIZER VACCINE 2024-01-06 00:00:00 Completed [facility] Influenza Virus Vaccine,quad Im,preserve Free 65+ (FLUAD) 2024-01-06 00:00:00 Completed [facility] TD, NOS 2024-01-02 00:00:00 Completed [facility] Pneumococcal Polysaccharide, PPSV23 (PNEUMOVAX) 2024-01-02 00:00:00 Completed [facility] Influenza High Dose 2024-01-02 00:00:00 Completed [facility] Pneumococcal 13 Conjugate, PCV13 (Prevnar 13) 2024-01-02 00:00:00 Completed [facility] Influenza Virus Vaccine 2024-01-02 00:00:00 Completed [facility] SARS-COV-2 COVID-19 PFIZER VACCINE 2024-01-02 00:00:00 Completed [facility] Influenza Virus Vaccine,quad Im,preserve Free 65+ (FLUAD) 2024-01-02 00:00:00 Completed [facility] TD, NOS 2023-12-31 00:00:00 Completed [facility] Pneumococcal Polysaccharide, PPSV23 (PNEUMOVAX) 2023-12-31 00:00:00 Completed [facility] Influenza High Dose 2023-12-31 00:00:00 Completed [facility] Pneumococcal 13 Conjugate, PCV13 (Prevnar 13) 2023-12-31 00:00:00 Completed [facility] Influenza Virus Vaccine 2023-12-31 00:00:00 Completed [facility] SARS-COV-2 COVID-19 PFIZER VACCINE 2023-12-31 00:00:00 Completed [facility] Influenza Virus Vaccine,quad Im,preserve Free 65+ (FLUAD) 2023-12-31 00:00:00 Completed [facility] TD, NOS 2023-12-29 08:54:00 Completed [facility] Pneumococcal Polysaccharide, PPSV23 (PNEUMOVAX) 2023-12-29 08:54:00 Completed [facility] Influenza High Dose 2023-12-29 08:54:00 Completed [facility] Pneumococcal 13 Conjugate, PCV13 (Prevnar 13) 2023-12-29 08:54:00 Completed [facility] Influenza Virus Vaccine 2023-12-29 08:54:00 Completed [facility] SARS-COV-2 COVID-19 PFIZER VACCINE 2023-12-29 08:54:00 Completed [facility] Influenza Virus Vaccine,quad Im,preserve Free 65+ (FLUAD) 2023-12-29 08:54:00 Completed [facility] TD, NOS 2023-10-09 00:00:00 Completed [facility] Pneumococcal Polysaccharide, PPSV23 (PNEUMOVAX) 2023-10-09 00:00:00 Completed [facility] Influenza High Dose 2023-10-09 00:00:00 Completed [facility] Pneumococcal 13 Conjugate, PCV13 (Prevnar 13) 2023-10-09 00:00:00 Completed [facility] Influenza Virus Vaccine 2023-10-09 00:00:00 Completed [facility] SARS-COV-2 COVID-19 PFIZER VACCINE 2023-10-09 00:00:00 Completed [facility] Influenza Virus Vaccine,quad Im,preserve Free 65+ (FLUAD) 2023-10-09 00:00:00 Completed [facility] TD, NOS 2023-10-07 00:00:00 Completed [facility] Pneumococcal Polysaccharide, PPSV23 (PNEUMOVAX) 2023-10-07 00:00:00 Completed [facility] Influenza High Dose 2023-10-07 00:00:00 Completed [facility] Pneumococcal 13 Conjugate, PCV13 (Prevnar 13) 2023-10-07 00:00:00 Completed [facility] Influenza Virus Vaccine 2023-10-07 00:00:00 Completed [facility] SARS-COV-2 COVID-19 PFIZER VACCINE 2023-10-07 00:00:00 Completed [facility] Influenza Virus Vaccine,quad Im,preserve Free 65+ (FLUAD) 2023-10-07 00:00:00 Completed [facility] TD, NOS 2023-09-19 00:00:00 Completed [facility] Pneumococcal Polysaccharide, PPSV23 (PNEUMOVAX) 2023-09-19 00:00:00 Completed [facility] Influenza High Dose 2023-09-19 00:00:00 Completed [facility] Pneumococcal 13 Conjugate, PCV13 (Prevnar 13) 2023-09-19 00:00:00 Completed [facility] Influenza Virus Vaccine 2023-09-19 00:00:00 Completed [facility] SARS-COV-2 COVID-19 PFIZER VACCINE 2023-09-19 00:00:00 Completed [facility] Influenza Virus Vaccine,quad Im,preserve Free 65+ (FLUAD) 2023-09-19 00:00:00 Completed [facility] TD, NOS 2023-09-18 15:15:00 Completed [facility] Pneumococcal Polysaccharide, PPSV23 (PNEUMOVAX) 2023-09-18 15:15:00 Completed [facility] Pneumococcal 13 Conjugate, PCV13 (Prevnar 13) 2023-09-18 15:15:00 Completed [facility] Influenza Virus Vaccine 2023-09-18 15:15:00 Completed [facility] SARS-COV-2 COVID-19 PFIZER VACCINE 2023-09-18 15:15:00 Completed [facility] Influenza Virus Vaccine,quad Im,preserve Free 65+ (FLUAD) 2023-09-18 15:15:00 Completed [facility] Influenza High Dose 2023-09-18 15:15:00 Completed [facility] TD, NOS 2023-09-18 14:40:00 Completed [facility] Pneumococcal Polysaccharide, PPSV23 (PNEUMOVAX) 2023-09-18 14:40:00 Completed [facility] Pneumococcal 13 Conjugate, PCV13 (Prevnar 13) 2023-09-18 14:40:00 Completed [facility] Influenza Virus Vaccine 2023-09-18 14:40:00 Completed [facility] SARS-COV-2 COVID-19 PFIZER VACCINE 2023-09-18 14:40:00 Completed [facility] Influenza Virus Vaccine,quad Im,preserve Free 65+ (FLUAD) 2023-09-18 14:40:00 Completed [facility] Influenza High Dose 2023-09-18 14:40:00 Completed [facility] TD, NOS 2023-09-18 00:00:00 Completed [facility] Pneumococcal Polysaccharide, PPSV23 (PNEUMOVAX) 2023-09-18 00:00:00 Completed [facility] Influenza High Dose 2023-09-18 00:00:00 Completed [facility] Pneumococcal 13 Conjugate, PCV13 (Prevnar 13) 2023-09-18 00:00:00 Completed [facility] Influenza Virus Vaccine 2023-09-18 00:00:00 Completed [facility] SARS-COV-2 COVID-19 PFIZER VACCINE 2023-09-18 00:00:00 Completed [facility] TD, NOS 2023-09-03 00:00:00 Completed [facility] Pneumococcal Polysaccharide, PPSV23 (PNEUMOVAX) 2023-09-03 00:00:00 Completed [facility] Influenza High Dose 2023-09-03 00:00:00 Completed [facility] Pneumococcal 13 Conjugate, PCV13 (Prevnar 13) 2023-09-03 00:00:00 Completed [facility] Influenza Virus Vaccine 2023-09-03 00:00:00 Completed [facility] SARS-COV-2 COVID-19 PFIZER VACCINE 2023-09-03 00:00:00 Completed [facility] Pneumococcal Polysaccharide, PPSV23 (PNEUMOVAX) 2023-06-21 00:00:00 Completed [facility] Influenza High Dose 2023-06-21 00:00:00 Completed [facility] Pneumococcal 13 Conjugate, PCV13 (Prevnar 13) 2023-06-21 00:00:00 Completed [facility] Influenza Virus Vaccine 2023-06-21 00:00:00 Completed [facility] SARS-COV-2 COVID-19 PFIZER VACCINE 2023-06-21 00:00:00 Completed [facility] TD, NOS 2023-06-21 00:00:00 Completed [facility] TD, NOS 2023-06-21 00:00:00 Completed [facility] Pneumococcal Polysaccharide, PPSV23 (PNEUMOVAX) 2023-06-21 00:00:00 Completed [facility] Influenza High Dose 2023-06-21 00:00:00 Completed [facility] Pneumococcal 13 Conjugate, PCV13 (Prevnar 13) 2023-06-21 00:00:00 Completed [facility] Influenza Virus Vaccine 2023-06-21 00:00:00 Completed [facility] SARS-COV-2 COVID-19 PFIZER VACCINE 2023-06-21 00:00:00 Completed [facility] TD, NOS 2023-06-20 00:00:00 Completed [facility] Pneumococcal Polysaccharide, PPSV23 (PNEUMOVAX) 2023-06-20 00:00:00 Completed [facility] Influenza High Dose 2023-06-20 00:00:00 Completed [facility] Pneumococcal 13 Conjugate, PCV13 (Prevnar 13) 2023-06-20 00:00:00 Completed [facility] Influenza Virus Vaccine 2023-06-20 00:00:00 Completed [facility] SARS-COV-2 COVID-19 PFIZER VACCINE 2023-06-20 00:00:00 Completed [facility] SARS-COV-2 COVID-19 PFIZER VACCINE 2021-07-24 00:00:00 Completed [facility] SARS-COV-2 COVID-19 PFIZER VACCINE 2021-07-24 00:00:00 Completed [facility] SARS-COV-2 COVID-19 PFIZER VACCINE 2021-07-24 00:00:00 Completed [facility] SARS-COV-2 COVID-19 PFIZER VACCINE 2021-07-24 00:00:00 Completed [facility] SARS-COV-2 COVID-19 PFIZER VACCINE 2021-07-24 00:00:00 Completed [facility] SARS-COV-2 COVID-19 PFIZER VACCINE 2021-07-24 00:00:00 Completed [facility] SARS-COV-2 COVID-19 PFIZER VACCINE 2021-07-24 00:00:00 Completed [facility] SARS-COV-2 COVID-19 PFIZER VACCINE 2021-07-24 00:00:00 Completed [facility] SARS-COV-2 COVID-19 PFIZER VACCINE 2021-07-24 00:00:00 Completed [facility] SARS-COV-2 COVID-19 PFIZER VACCINE 2021-07-24 00:00:00 Completed [facility] SARS-COV-2 COVID-19 PFIZER VACCINE 2021-07-24 00:00:00 Completed [facility] Influenza High Dose 2020-05-17 00:00:00 Completed [facility] Influenza High Dose 2020-05-17 00:00:00 Completed [facility] Influenza High Dose 2020-05-17 00:00:00 Completed [facility] Influenza High Dose 2020-05-17 00:00:00 Completed [facility] Influenza High Dose 2020-05-17 00:00:00 Completed [facility] Influenza High Dose 2020-05-17 00:00:00 Completed [facility] Influenza High Dose 2020-05-17 00:00:00 Completed [facility] Influenza High Dose 2020-05-17 00:00:00 Completed [facility] Influenza High Dose 2020-05-17 00:00:00 Completed [facility] Influenza High Dose 2020-05-17 00:00:00 Completed [facility] Influenza High Dose 2020-05-17 00:00:00 Completed [facility] Influenza, High-Dose, Trivalent, PF (FLUZONE) 2020-05-17 00:00:00 Completed [facility] Influenza High Dose 2019-06-22 00:00:00 Completed [facility] Influenza High Dose 2019-06-22 00:00:00 Completed [facility] Influenza High Dose 2019-06-22 00:00:00 Completed [facility] Influenza High Dose 2019-06-22 00:00:00 Completed [facility] Influenza High Dose 2019-06-22 00:00:00 Completed [facility] Influenza High Dose 2019-06-22 00:00:00 Completed [facility] Influenza High Dose 2019-06-22 00:00:00 Completed [facility] Influenza High Dose 2019-06-22 00:00:00 Completed [facility] Influenza High Dose 2019-06-22 00:00:00 Completed [facility] Influenza High Dose 2019-06-22 00:00:00 Completed [facility] Influenza High Dose 2019-06-22 00:00:00 Completed [facility] Influenza, High-Dose, Trivalent, PF (FLUZONE) 2019-06-22 00:00:00 Completed Pneumococcal Polysaccharide, PPSV23 (PNEUMOVAX) 2018-09-22 00:00:00 Completed [facility] Influenza High Dose 2018-09-22 00:00:00 Completed [facility] Pneumococcal Polysaccharide, PPSV23 (PNEUMOVAX) 2018-09-22 00:00:00 Completed [facility] Influenza High Dose 2018-09-22 00:00:00 Completed [facility] Pneumococcal Polysaccharide, PPSV23 (PNEUMOVAX) 2018-09-22 00:00:00 Completed [facility] Influenza High Dose 2018-09-22 00:00:00 Completed [facility] Pneumococcal Polysaccharide, PPSV23 (PNEUMOVAX) 2018-09-22 00:00:00 Completed [facility] Influenza High Dose 2018-09-22 00:00:00 Completed [facility] Pneumococcal Polysaccharide, PPSV23 (PNEUMOVAX) 2018-09-22 00:00:00 Completed [facility] Influenza High Dose 2018-09-22 00:00:00 Completed [facility] Pneumococcal Polysaccharide, PPSV23 (PNEUMOVAX) 2018-09-22 00:00:00 Completed [facility] Influenza High Dose 2018-09-22 00:00:00 Completed [facility] Pneumococcal Polysaccharide, PPSV23 (PNEUMOVAX) 2018-09-22 00:00:00 Completed [facility] Influenza High Dose 2018-09-22 00:00:00 Completed [facility] Pneumococcal Polysaccharide, PPSV23 (PNEUMOVAX) 2018-09-22 00:00:00 Completed [facility] Influenza High Dose 2018-09-22 00:00:00 Completed [facility] Pneumococcal Polysaccharide, PPSV23 (PNEUMOVAX) 2018-09-22 00:00:00 Completed [facility] Influenza High Dose 2018-09-22 00:00:00 Completed [facility] Pneumococcal Polysaccharide, PPSV23 (PNEUMOVAX) 2018-09-22 00:00:00 Completed [facility] Influenza High Dose 2018-09-22 00:00:00 Completed [facility] Pneumococcal Polysaccharide, PPSV23 (PNEUMOVAX) 2018-09-22 00:00:00 Completed [facility] Influenza High Dose 2018-09-22 00:00:00 Completed [facility] Pneumococcal 13 Conjugate, PCV13 (Prevnar 13) 2016-06-21 00:00:00 Completed [facility] Influenza High Dose 2016-06-21 00:00:00 Completed [facility] Influenza Virus Vaccine 2016-06-21 00:00:00 Completed [facility] Pneumococcal 13 Conjugate, PCV13 (Prevnar 13) 2016-06-21 00:00:00 Completed [facility] Influenza High Dose 2016-06-21 00:00:00 Completed [facility] Influenza Virus Vaccine 2016-06-21 00:00:00 Completed [facility] Pneumococcal 13 Conjugate, PCV13 (Prevnar 13) 2016-06-21 00:00:00 Completed [facility] Influenza High Dose 2016-06-21 00:00:00 Completed [facility] Influenza Virus Vaccine 2016-06-21 00:00:00 Completed [facility] Pneumococcal 13 Conjugate, PCV13 (Prevnar 13) 2016-06-21 00:00:00 Completed [facility] Influenza High Dose 2016-06-21 00:00:00 Completed [facility] Influenza Virus Vaccine 2016-06-21 00:00:00 Completed [facility] Pneumococcal 13 Conjugate, PCV13 (Prevnar 13) 2016-06-21 00:00:00 Completed [facility] Influenza High Dose 2016-06-21 00:00:00 Completed [facility] Influenza Virus Vaccine 2016-06-21 00:00:00 Completed [facility] Pneumococcal 13 Conjugate, PCV13 (Prevnar 13) 2016-06-21 00:00:00 Completed [facility] Influenza High Dose 2016-06-21 00:00:00 Completed [facility] Influenza Virus Vaccine 2016-06-21 00:00:00 Completed [facility] Pneumococcal 13 Conjugate, PCV13 (Prevnar 13) 2016-06-21 00:00:00 Completed [facility] Influenza High Dose 2016-06-21 00:00:00 Completed [facility] Influenza Virus Vaccine 2016-06-21 00:00:00 Completed [facility] Pneumococcal 13 Conjugate, PCV13 (Prevnar 13) 2016-06-21 00:00:00 Completed [facility] Influenza High Dose 2016-06-21 00:00:00 Completed [facility] Influenza Virus Vaccine 2016-06-21 00:00:00 Completed [facility] Pneumococcal 13 Conjugate, PCV13 (Prevnar 13) 2016-06-21 00:00:00 Completed [facility] Influenza High Dose 2016-06-21 00:00:00 Completed [facility] Influenza Virus Vaccine 2016-06-21 00:00:00 Completed [facility] Pneumococcal 13 Conjugate, PCV13 (Prevnar 13) 2016-06-21 00:00:00 Completed [facility] [facility] Influenza High Dose 2016-06-21 00:00:00 Completed [facility] Influenza Virus Vaccine 2016-06-21 00:00:00 Completed [facility] Pneumococcal 13 Conjugate, PCV13 (Prevnar 13) 2016-06-21 00:00:00 Completed [facility] Influenza High Dose 2016-06-21 00:00:00 Completed [facility] Influenza Virus Vaccine 2016-06-21 00:00:00 Completed [facility] Td 2016-06-14 00:00:00 Completed [facility] Td 2016-06-14 00:00:00 Completed [facility] Td 2016-06-14 00:00:00 Completed [facility] Td 2016-06-14 00:00:00 Completed [facility] TD, NOS 2016-06-14 00:00:00 Completed [facility] TD, NOS 2016-06-14 00:00:00 Completed [facility] TD, NOS 2016-06-14 00:00:00 Completed [facility] TD, NOS 2016-06-14 00:00:00 Completed [facility] TD, NOS 2016-06-14 00:00:00 Completed [facility] TD, NOS 2016-06-14 00:00:00 Completed [facility] TD, NOS 2016-06-14 00:00:00 Completed [facility] influenza virus vaccine, inactivated Unknown Completed [facility] pneumococcal 13-valent vaccine Unknown Completed [facility] influenza virus vaccine, inactivated Unknown Completed [facility] n pneumococcal 13-valent vaccine Unknown Completed [facility] influenza virus vaccine, inactivated Unknown Completed [facility] pneumococcal 13-valent vaccine Unknown Completed [facility] Vital Signs Vital Name Observation Time Observation Value Comments S ource Systolic blood pressure 2024-12-16 15:50:00 129 mm[Hg] [facility] Diastolic blood pressure 2024-12-16 15:50:00 74 mm[Hg] [facility] Heart rate 2024-12-16 15:50:00 82 /min [facility] Body height 2024-12-16 15:50:00 152.4 cm pt stated height [facility] Body weight 2024-12-16 15:50:00 97.796 kg [facility] BMI 2024-12-16 15:50:00 42.11 kg/m2 [facility] Oxygen saturation in Arterial blood by Pulse oximetry 2024-12-16 15:50:00 93 /min [facility] Systolic blood pressure 2024-06-18 17:55:00 140 mm[Hg] [facility] Diastolic blood pressure 2024-06-18 17:55:00 73 mm[Hg] [facility] Heart rate 2024-06-18 17:55:00 70 /min [facility] Respiratory rate 2024-06-18 17:55:00 16 /min [facility] Body height 2024-06-18 17:55:00 152.4 cm [facility] Body weight 2024-06-18 17:55:00 100.2 kg [facility] BMI 2024-06-18 17:55:00 43.14 kg/m2 [facility] Oxygen saturation in Arterial blood by Pulse oximetry 2024-06-18 17:55:00 92 /min [facility] Systolic blood pressure 2024-04-08 15:01:00 136 mm[Hg] [facility] Diastolic blood pressure 2024-04-08 15:01:00 69 mm[Hg] [facility] Heart rate 2024-04-08 15:01:00 89 /min [facility] Body temperature 2024-04-08 15:01:00 36.17 Moira [facility] Respiratory rate 2024-04-08 15:01:00 19 /min [facility] Body height 2024-04-08 15:01:00 152.4 cm [facility] Body weight 2024-04-08 15:01:00 98.657 kg [facility] BMI 2024-04-08 15:01:00 42.48 kg/m2 [facility] Oxygen saturation in Arterial blood by Pulse oximetry 2024-04-08 15:01:00 94 /min pt was put on 3L in office [facility] Systolic blood pressure 2024-04-07 20:00:00 130 mm[Hg] [facility] Diastolic blood pressure 2024-04-07 20:00:00 67 mm[Hg] [facility] Heart rate 2024-04-07 20:00:00 74 /min [facility] Respiratory rate 2024-04-07 20:00:00 16 /min [facility] Oxygen saturation in Arterial blood by Pulse oximetry 2024-04-07 20:00:00 93 /min [facility] Body temperature 2024-04-07 16:32:00 36.61 Moira [facility] Body height 2024-04-07 16:32:00 152.4 cm [facility] Body weight 2024-04-07 16:32:00 99.791 kg [facility] BMI 2024-04-07 16:32:00 42.97 kg/m2 [facility] Systolic blood pressure 2024-02-11 18:18:00 135 mm[Hg] [facility] Diastolic blood pressure 2024-02-11 18:18:00 69 mm[Hg] [facility] Heart rate 2024-02-11 18:18:00 76 /min [facility] Body temperature 2024-02-11 18:18:00 36.11 Moira [facility] Body weight 2024-02-11 18:18:00 97.977 kg [facility] BMI 2024-02-11 18:18:00 42.18 kg/m2 [facility] Oxygen saturation in Arterial blood by Pulse oximetry 2024-02-11 18:18:00 92 /min [facility] Systolic blood pressure 2024-01-10 15:29:00 138 mm[Hg] [facility] Diastolic blood pressure 2024-01-10 15:29:00 90 mm[Hg] [facility] Heart rate 2024-01-10 15:29:00 80 /min [facility] Body temperature 2024-01-10 15:29:00 36.33 Moira [facility] Respiratory rate 2024-01-10 15:29:00 19 /min [facility] Body height 2024-01-10 15:29:00 152.4 cm [facility] Body weight 2024-01-10 15:29:00 92.398 kg [facility] BMI 2024-01-10 15:29:00 39.78 kg/m2 [facility] Oxygen saturation in Arterial blood by Pulse oximetry 2024-01-10 15:29:00 92 /min [facility] Systolic blood pressure 2024-01-01 20:00:00 151 mm[Hg] [facility] Diastolic blood pressure 2024-01-01 20:00:00 88 mm[Hg] [facility] Heart rate 2024-01-01 20:00:00 76 /min [facility] Body temperature 2024-01-01 20:00:00 36.39 Moira [facility] Respiratory rate 2024-01-01 20:00:00 16 /min [facility] Oxygen saturation in Arterial blood by Pulse oximetry 2024-01-01 20:00:00 96 /min [facility] Body weight 2024-01-01 09:00:00 102.967 kg [facility] BMI 2024-01-01 09:00:00 44.33 kg/m2 [facility] Body height 2023-12-29 19:41:00 152.4 cm [facility] Systolic blood pressure 2023-09-18 20:59:00 128 mm[Hg] [facility] Diastolic blood pressure 2023-09-18 20:59:00 73 mm[Hg] [facility] Heart rate 2023-09-18 20:59:00 80 /min [facility] Respiratory rate 2023-09-18 20:59:00 17 /min [facility] Body height 2023-09-18 20:59:00 152.4 cm [facility] Body weight 2023-09-18 20:59:00 100.517 kg [facility] BMI 2023-09-18 20:59:00 43.28 kg/m2 [facility] Oxygen saturation in Arterial blood by Pulse oximetry 2023-09-18 20:59:00 90 /min [facility] Systolic blood pressure 2023-04-12 15:05:00 174 mm[Hg] [facility] Diastolic blood pressure 2023-04-12 15:05:00 107 mm[Hg] [facility] Heart rate 2023-04-12 15:05:00 96 /min [facility] Respiratory rate 2023-04-12 15:05:00 14 /min [facility] Oxygen saturation in Arterial blood by Pulse oximetry 2023-04-12 15:05:00 94 /min [facility] Body temperature 2023-04-12 10:28:00 36.11 Moira [facility] Body height 2023-04-12 10:28:00 152.4 cm [facility] Body weight 2023-04-12 10:28:00 99.791 kg [facility] BMI 2023-04-12 10:28:00 42.97 kg/m2 [facility] Systolic blood pressure 2022-12-26 18:09:00 133 mm[Hg] [facility] Diastolic blood pressure 2022-12-26 18:09:00 82 mm[Hg] [facility] Heart rate 2022-12-26 18:09:00 83 /min [facility] Body height 2022-12-26 18:09:00 152.4 cm [facility] Body weight 2022-12-26 18:09:00 100.925 kg [facility] BMI 2022-12-26 18:09:00 43.45 kg/m2 [facility] Oxygen saturation in Arterial blood by Pulse oximetry 2022-12-26 18:09:00 92 /min [facility] Systolic blood pressure 2022-09-05 22:00:00 138 mm[Hg] [facility] Diastolic blood pressure 2022-09-05 22:00:00 127 mm[Hg] [facility] Heart rate 2022-09-05 22:00:00 91 /min [facility] Body temperature 2022-09-05 22:00:00 36.5 Moira [facility] Respiratory rate 2022-09-05 22:00:00 21 /min [facility] Oxygen saturation in Arterial blood by Pulse oximetry 2022-09-05 22:00:00 82 /min [facility] Body height 2022-09-04 06:58:00 152.4 cm [facility] Body weight 2022-09-04 06:58:00 96.48 kg [facility] BMI 2022-09-04 06:58:00 41.54 kg/m2 [facility] Systolic blood pressure 2022-05-23 20:20:00 132 mm[Hg] [facility] Diastolic blood pressure 2022-05-23 20:20:00 73 mm[Hg] [facility] Heart rate 2022-05-23 20:20:00 82 /min [facility] Body temperature 2022-05-23 20:20:00 36.11 Moira [facility] Body weight 2022-05-23 20:20:00 95.709 kg [facility] BMI 2022-05-23 20:20:00 41.21 kg/m2 [facility] Oxygen saturation in Arterial blood by Pulse oximetry 2022-05-23 20:20:00 90 /min [facility] Systolic (mm Hg) 2016-06-21 20:29:00 [facility] Diastolic (mm Hg) 2016-06-21 20:29:00 [facility] Heart [facility] 2016-06-21 20:29:00 [facility] Temperature Oral (F) 2016-06-21 20:29:00 98.5 F [facility] Respitory Rate 2016-06-21 20:29:00 [facility] Systolic (mm Hg) 2016-06-21 17:20:00 [facility] Diastolic (mm Hg) 2016-06-21 17:20:00 [facility] Heart Rate 2016-06-21 17:20:00 [facility] Respitory Rate 2016-06-21 17:20:00 [facility] Weight 2016-06-21 14:00:00 [facility] Heart Rate 2016-06-21 12:29:00 [facility] Systolic (mm Hg) 2016-06-21 12:29:00 [facility] Diastolic (mm Hg) 2016-06-21 12:29:00 [facility] Respitory Rate 2016-06-21 12:29:00 [facility] Temperature Oral (F) 2016-06-21 07:09:00 97.8 F [facility] Weight 2016-06-21 07:08:00 [facility] BMI Calculated 2016-06-21 07:05:00 [facility] Weight 2016-06-21 07:05:00 [facility] Height 2016-06-21 07:05:00 152.4 cm [facility] Temperature Oral (F) 2016-06-21 06:00:00 98.2 F [facility] Procedures Procedure Date / Time Performed Performing Clinician Source FLU VACC([id number]),65+YR,0.5 ML,IM,ADJUVANTED,TIV(FLUA D) 2024-06-18 17:48:35 Bartolo Noriega [facility] XR CHEST 2 VW 2024-04-07 18:27:32 Jaylin Easley [facility] INFLUENZA A/B RSV COVID NAAT 2024-04-07 17:01:00 Jaylin Easley [facility] TROPONIN I 2024-04-07 16:38:00 Jaylin Easley [facility] BASIC METABOLIC PANEL (NA, K, CL, CO2, GLUCOSE, BUN, CREATININE, CA) 2024-04-07 16:38:00 Jaylin Easley [facility] CBC WITH DIFF 2024-04-07 16:38:00 Jaylin Easley [facility] N-TERMINAL PRO-BNP 2024-04-07 16:38:00 Marilu Easley [facility] POCT GLUCOSE (AUTOMATED) 2024-01-01 17:08:00 Surya Kowalski [facility] POCT GLUCOSE (AUTOMATED) 2024-01-01 12:44:00 Surya Kowalski [facility] MAGNESIUM 2024-01-01 08:35:00 Cali Vogt [facility] BASIC METABOLIC PANEL (NA, K, CL, CO2, GLUCOSE, BUN, CREATININE, CA) 2024-01-01 08:35:00 Cali Vogt [facility] CBC WITH DIFF 2024-01-01 08:35:00 Cali Vogt [facility] PROTHROMBIN TIME / INR 2024-01-01 08:35:00 Linden Vogt [facility] URINALYSIS 2024-01-01 01:53:00 Cali Vogt [facility] POCT GLUCOSE (AUTOMATED) 2024-01-01 01:01:00 Surya Kowalski [facility] POCT GLUCOSE (AUTOMATED) 2023-12-31 21:49:00 Surya Kowalski [facility] POCT GLUCOSE (AUTOMATED) 2023-12-31 16:23:00 Surya Kowalski [facility] POCT GLUCOSE (AUTOMATED) 2023-12-31 12:40:00 Surya Kowalski [facility] MAGNESIUM 2023-12-31 08:28:00 Cali Vogt [facility] BASIC METABOLIC PANEL (NA, K, CL, CO2, GLUCOSE, BUN, CREATININE, CA) 2023-12-31 08:28:00 Cali Vogt [facility] CBC WITH DIFF 2023-12-31 08:28:00 Cali Vogt [facility] PROTHROMBIN TIME / INR 2023-12-31 08:28:00 Linden Vogt [facility] POCT GLUCOSE (AUTOMATED) 2023-12-31 01:08:00 Surya Kowalski [facility] PROTHROMBIN TIME / INR 2023-12-30 22:11:00 Linden Vogt [facility] POCT GLUCOSE (AUTOMATED) 2023-12-30 21:51:00 Surya Kowalski [facility] POCT GLUCOSE (AUTOMATED) 2023-12-30 16:48:00 Surya Kowalski [facility] TRANSTHORACIC ECHO (TTE) COMPLETE W/ CONTRAST 2023-12-30 14:51:00 Gilson Fortune [facility] POCT GLUCOSE (AUTOMATED) 2023-12-30 12:51:00 Surya Kowalski [facility] MAGNESIUM 2023-12-30 09:33:00 Irving Kowalskilani [facility] HEPATIC FUNCTION PANEL ([id number]) (ALB,T.PRO,BILI T,BU/BC,ALT,AST,ALK PHOS) 2023-12-30 09:33:00 Irving Kowalskilani [facility] BASIC METABOLIC PANEL (NA, K, CL, CO2, GLUCOSE, BUN, CREATININE, CA) 2023-12-30 09:33:00 [facility] 2023-12-30 09:33:00 Lisandro Kowalski [facility] N-TERMINAL PRO-BNP 2023-12-30 09:33:00 [facility] 2023-12-30 01:55:00 Lisandro Kowalski [facility] URINE CULTURE 2023-12-30 01:55:00 Lisandro Kowalski [facility] POCT GLUCOSE (AUTOMATED) 2023-12-30 01:40:00 Surya Kowalski [facility] POCT GLUCOSE (AUTOMATED) 2023-12-29 21:43:00 Surya Kowalski [facility] GLYCOSYLATED HEMOGLOBIN (A1C) 2023-12-29 20:17:00 [facility] MSSA SCREEN BY DOLORES SABILLON 2023-12-29 20:17:00 Lisandro Kowalski [facility] CT THORAX W CONTRAST 2023-12-29 15:16:44 Charli Newton [facility] CT ABDOMEN PELVIS W CONTRAST 2023-12-29 15:15:27 Mary Newton [facility] LIPASE 2023-12-29 13:58:00 [facility]23-12-29 13:58:00 Mary Newton [facility] TROPONIN I 2023-12-29 13:58:00 Mary Newton [facility] COMP. METABOLIC PANEL ([id number]) 2023-12-29 13:58:00 Mary Newton [facility] CBC WITH DIFF 2023-12-29 13:58:00 Mary Newton [facility] N-TERMINAL PRO-BNP 2023-12-29 13:58:00 Lance Newton [facility] HEALTH - OTHER 2023-10-09 06:01:00 Doctor Paul maldonado, [place] [facility] BASIC METABOLIC PANEL (NA, K, CL, CO2, GLUCOSE, BUN, CREATININE, CA) 2023-09-18 21:19:00 Bartolo Noriega [facility] N-TERMINAL PRO-BNP 2023-09-18 21:19:00 Bartolo Noriega [facility] FLU VACC(),65+YR,0.5 ML,IM,ADJUVANTED,QUAD(FLU AD) 2023-09-18 20:59:51 Cari Noriegaben [facility] ASSIGNMENT OF BENEFITS 2023-09-18 20:41:34 Docto r Unassigned, [place] [facility] HEALTH - OTHER 2023-06-20 05:01:00 Doctor Paul maldonado, [place] [facility] CT ABDOMEN PELVIS W CONTRAST 2023-04-12 12:25:05 Rosanne Márquez [facility] URINALYSIS 2023-04-12 11:44:00 Rosanne Márquez [facility] LIPASE 2023-04-12 10:33:00 Rosanne Márquez [facility] TROPONIN I 2023-04-12 10:33:00 Rosanne Márquez [facility] COMP. METABOLIC PANEL ([id number]) 2023-04-12 10:33:00 Rosanne Márquez [facility] CBC WITH DIFF 2023-04-12 10:33:00 Rosanne Márquez [facility] PATIENT FINANCIAL POLICY 2022-12-26 17:45:36 Doctor Unassigned, [place] [facility] MEDICATION CORRESPONDENCE 2022-11-13 06:01:00 Do ctor Unassigned, [place] [facility] BASIC METABOLIC PANEL (NA, K, CL, CO2, GLUCOSE, BUN, CREATININE, CA) 2022-09-05 09:49:00 Kristen [facility] CBC WITH DIFF 2022-09-05 09:49:00 [facility] ABDOMEN PELVIS W CONTRAST 2022-09-04 17:05:08 Kristen [facility] LACTIC ACID WHOLE BLOOD 2022-09-04 06:05:00 Do windy Higgins [facility] URINALYSIS 2022-09-04 04:34:00 [facility] URINE CULTURE 2022-09-04 04:34:00 Antonio Higgins [facility] LIPASE 2022-09-04 03:09:00 [facility] MAGNESIUM 2022-09-04 03:09:00 [facility] TROPONIN I 2022-09-04 03:09:00 [facility] COMP. METABOLIC PANEL ([id number]) 2022-09-04 03:09:00 Antonio Higgins [facility] CBC WITH DIFF 2022-09-04 03:09:00 Antonio Higgins [facility] PROTHROMBIN TIME / INR 2022-09-04 03:09:00 Gadiel Higgins [facility] ACTIVATED PARTIAL THRMPLAS THEO 2022-09-04 03:09:00 Antonio Higgins [facility] N-TERMINAL PRO-BNP 2022-09-04 03:09:00 Antonio Higgins [facility] LACTIC ACID WHOLE BLOOD 2022-09-04 03:07:00 Do windy Higgins [facility] SURGERY [facility] 2017-03-12 05:01:00 Doct or Unassigned, [place] [facility] CABG - Coronary artery bypass graft [facility] Start Date/Time End Date/Time Encounter Type Admission Type Attending [facility] Facility Care Department Encounter ID Source 2021-10-12 12:23:47 Outpatient 3 [id number] REF [id number] 1 0625 [facility] [place] [facility] 2021-10-12 12:23:25 Outpatient 3 [id number] [id number] REF [id number] 1 [id number] [facility] [place] 2021-07-18 07:24:59 Emergency [facility] [id number] [facility] 2021-07-17 03:14:08 Emergency [facility] [id number] [facility] 2021-07-16 15:03:39 Emergency [facility] [id number] [facility] 2021-07-15 12:36:23 Emergency [facility] [id number] [facility] 2021-07-14 22:24:57 Emergency [facility] [id number] [facility] 2025-05-03 00:00:00 2025-05-03 17:12:25 [facility] 1.2.840.114 350.1.13.10 4.2.7.2.686 [id number] 059 [id number] [facility] 2025-01-12 00:00:00 2025-01-14 16:55:41 [facility] 1.2.840.114 350.1.13.10 4.2.7.2.686 [id number] 059 [id number] [facility] 2019-04-14 00:00:00 2025-01-07 22:07:32 [facility] 1.2.840.114 350.1.13.10 4.2.7.2.686 [id number] 059 [id number] [facility] 2024-12-17 00:00:00 2024-12-18 08:54:51 Telephone [facility] 1.2.840.114 350.1.13.10 4.2.7.2.686 [id number] 059 [id number] [facility] 2024-12-16 11:00:00 2024-12-16 11:24:55 Outpatient R [facility] [id number] [facility] 2024-12-16 11:00:00 2024-12-16 11:24:55 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 Visit 2, Adc Lab Bartolo Noriega 2, Adc Lab [facility] 1.2.840.114 350.1.13.10 4.2.7.2.686 [id number] 353 [id number] [facility] 2024-12-16 11:20:00 2024-12-16 11:20:00 [facility] 1.2.840.114 350.1.13.10 4.2.7.2.686 [id number] 059 [id number] [facility] 2024-12-02 13:00:00 2024-12-02 13:00:00 [facility] [id number] [facility] 2024-11-19 15:20:00 2024-11-19 15:20:00 Outpatient R CARI NORIEGABEN [facility] [id number] [facility] 2024-11-02 00:00:00 2024-11-15 15:53:13 [facility] 1.2.840.114 350.1.13.10 4.2.7.2.686 [id number] 059 [id number] [facility] 2024-11-03 00:00:00 2024-11-03 14:54:44 Telephone Bartolo Noriega [facility] 1.2.840.114 350.1.13.10 4.2.7.2.686 [id number] 059 [id number] [facility] 2017-03-12 00:00:00 2024-10-31 03:45:13 Orders Only Doctor Unassigned, [place] Doctor Unassigned, [place] [facility] 1.2.840.114 350.1.13.10 4.2.7.2.686 [id number] 009 [id number] [facility] 2024-10-09 00:00:00 2024-10-13 09:34:12 [facility] 1.2.840.114 350.1.13.10 4.2.7.2.686 [id number] 059 [id number] [facility] 2024-09-17 14:00:00 2024-09-17 14:00:00 Outpatient R CARI NORIEGABEN [facility] [id number] [facility] 2024-07-15 00:00:00 2024-07-16 10:09:26 Refill Hari [facility] 1.2.840.114 350.1.13.10 4.2.7.2.686 [id number] 059 [id number] [facility] 2024-07-10 00:00:00 2024-07-10 15:05:11 [facility] 1.2.840.114 350.1.13.10 4.2.7.2.686 [id number] 059 [id number] [facility] 2024-06-18 00:00:00 2024-06-19 09:43:15 [facility] 1.2.840.114 350.1.13.10 4.2.7.2.686 [id number] 059 [id number] [facility] 2024-06-19 00:00:00 2024-06-19 08:20:15 Telephone Bartolo Noriega [facility] 1.2.840.114 350.1.13.10 4.2.7.2.686 [id number] 059 [id number] [facility] 2024-06-18 13:30:00 2024-06-18 13:45:00 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840.114 350.1.13.10 4.2.7.2.686 [id number] 059 [id number] [facility] 2024-06-01 00:00:00 2024-06-01 15:34:00 [facility] 1.2.840.114 350.1.13.10 4.2.7.2.686 [id number] 059 [id number] [facility] 2024-05-29 00:00:00 2024-06-01 09:04:55 [facility] 1.2.840.114 350.1.13.10 4.2.7.2.686 [id number] 059 [id number] [facility] 2024-05-13 14:00:00 2024-05-13 14:00:00 Outpatient R CARI [facility] [id number] [facility] 2024-04-23 00:00:00 2024-04-23 12:03:03 [facility] 1.2.840.114 350.1.13.10 4.2.7.2.686 [id number] 059 [id number] [facility] 2024-04-22 00:00:00 2024-04-22 15:51:28 [facility] 1.2.840.114 350.1.13.10 4.2.7.2.686 [id number] 059 [id number] [facility] 2024-04-16 00:00:00 2024-04-16 16:29:41 Tele[facility] 1.2.840.114 350.1.13.10 4.2.7.2.686 [id number] 059 [id number] [facility] 2024-04-15 00:00:00 2024-04-16 15:49:49 Telephone Hari [facility] BUILDING 1.2.840.114 350.1.13.10 4.2.7.2.686 [id number] 059 [id number] [facility] 2024-04-15 11:45:00 2024-04-15 12:00:00 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 Visit 2, Adc Lab [facility] 1.2.840.114 350.1.13.10 4.2.7.2.686 [id number] [facility] 2024-04-15 11:45:00 2024-04-15 11:45:00 Outpatient R [facility]I [facility] [id number] [facility] 2024-04-13 00:00:00 2024-04-13 13:23:12 Telephone Hari [facility] BUILDING 1.2.840.114 350.1.13.10 4.2.7.2.686 [id number] 059 [id number] [facility] 2024-04-08 00:00:00 2024-04-08 15:14:35 Telephone Hari [facility] 1.2.840.114 350.1.13.10 4.2.7.2.686 [id number] 059 [id number] [facility] 2024-04-08 09:40:00 2024-04-08 10:22:35 Outpatient R HARI [facility] [id number] [facility] 2024-04-08 09:40:00 2024-04-08 10:22:35 Office Visit Hari [facility] 1.2.840.114 350.1.13.10 4.2.7.2.686 [id number] 059 [id number] [facility] 2024-04-07 11:29:00 2024-04-07 15:29:00 Emergency X JAYLIN EASLEY [facility] [id number] [facility] 2024-04-07 11:29:00 2024-04-07 15:29:00 Emergency Jaylin Easley [facility] 1.2.840.114 350.1.13.10 4.2.7.2.686 [id number] 084 [id number] [facility] 2024-02-11 13:40:00 2024-02-11 13:40:00 [facility] 1.2.840.114 350.1.13.10 4.2.7.2.686 [id number] 059 [id number] [facility] 2024-02-11 13:40:00 2024-02-11 13:30:29 Outpatient R CARI [facility] [id number] [facility] 2024-01-14 00:00:00 2024-01-15 10:30:11 [facility] 1.2.840.114 350.1.13.10 4.2.7.2.686 [id number] 059 [id number] [facility] 2024-01-13 00:00:00 2024-01-13 00:00:00 Telephone [facility] 1.2.840.114 350.1.13.10 4.2.7.2.686 [id number] 059 [id number] [facility] 2024-01-10 14:20:00 2024-01-10 14:30:00 Office Visit Bartolo Noriega [facility] 1.2.840.114 350.1.13.10 4.2.7.2.686 [id number] 059 [id number] [facility] 2024-01-10 14:20:00 2024-01-10 13:18:44 Outpatient R CARI [facility] [id number] [facility] 2024-01-10 11:00:00 2024-01-10 11:15:00 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 Visit 2, Adc Lab [facility] 1.2.840.114 350.1.13.10 4.2.7.2.686 [id number] 353 [id number] [facility] 2024-01-10 10:20:00 2024-01-10 10:53:36 Office Visit Bartolo Noriega [facility] 1.2.840.114 350.1.13.10 4.2.7.2.686 [id number] 059 [id number] [facility] 2024-01-10 00:00:00 2024-01-10 00:00:00 [facility] 1.2.840.114 350.1.13.10 4.2.7.2.686 [id number] 059 [id number] [facility] 2024-01-10 00:00:00 2024-01-10 00:00:00 [facility] 1.2.840.114 350.1.13.10 4.2.7.2.686 [id number] 059 [id number] [facility] 2024-01-08 16:00:00 2024-01-08 16:00:00 Outpatient R [facility]I [facility] [id number] [facility] 2024-01-08 00:00:00 2024-01-08 00:00:00 [facility] 1.2.840.114 350.1.13.10 4.2.7.2.686 [id number] 059 [id number] [facility] 2024-01-07 00:00:00 2024-01-07 00:00:00 [facility] 1.2.840.114 350.1.13.10 4.2.7.2.686 [id number] 059 [id number] [facility] 2024-01-06 00:00:00 2024-01-06 00:00:00 [facility] 1.2.840.114 350.1.13.10 4.2.7.2.686 [id number] 059 [id number] [facility] 2024-01-02 00:00:00 2024-01-02 00:00:00 Transition of Care Maria Luisa Spicer 1.2.840.114 350.1.13.10 4.2.7.2.686 [id number] [facility] 2023-12-29 08:54:00 2024-01-01 17:25:00 Inpatient X LISANDRO KOWALSKI [facility] [id number] [facility] 2023-12-29 08:54:00 2024-01-01 17:25:00 Hospital Encounter Mary Newton Jelani [facility] 1.2840.114 350.1.13.10 4.2.7.2.686 [id number] 080 [id number] [facility] 2023-12-31 00:00:00 2023-12-31 00:00:00 [facility] 1.2840.114 350.1.13.10 4.2.7.2.686 [id number] 059 [id number] [facility] 2023-10-09 00:00:00 2023-10-09 00:00:00 Orders Only Doctor Unassigned, [place] [facility] 1.2.840.114 350.1.13.10 4.2.7.2.686 [id number] [id number] [facility] 2023-10-07 00:00:00 2023-10-07 00:00:00 [facility] 1.2840.114 350.1.13.10 4.2.7.2.686 [id number] 059 [id number] [facility] 2023-09-19 00:00:00 2023-09-19 00:00:00 [facility] 1.2.840.114 350.1.13.10 4.2.7.2.686 [id number] 059 [id number] [facility] 2023-09-18 15:15:00 2023-09-18 15:21:16 Outpatient R CARI [facility] [id number] [facility] 2023-09-18 15:15:00 2023-09-18 15:21:16 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 Visit 2, Adc Lab [facility] 1.2.840.114 350.1.13.10 4.2.7.2.686 [id number] [facility] 2023-09-18 14:40:00 2023-09-18 15:00:00 [facility] 1.2.840.114 350.1.13.10 4.2.7.2.686 [id number] 059 [id number] [facility] 2023-09-18 00:00:00 2023-09-18 00:00:00 Orders Only Doctor Unassigned, [place] [facility] 1.2.840.114 350.1.13.10 4.2.7.2.686 [id number] 009 [id number] [facility] 2023-09-05 11:20:00 2023-09-05 11:20:00 Outpatient R CARI [facility] [id number] [facility] 2023-09-03 00:00:00 2023-09-03 00:00:00 [facility] 1.2.840.114 350.1.13.10 4.2.7.2.686 [id number] 059 [id number] [facility] 2023-08-14 15:00:00 2023-08-14 15:00:00 Outpatient R CARI [facility] [id number] [facility] 2023-06-27 13:20:00 2023-06-27 13:20:00 Outpatient CARI MANEFORMERLY [facility] [id number] [facility] 2023-06-21 00:00:00 2023-06-21 00:00:00 Telephone Hari [facility] BUILDING 1.2.840.114 350.1.13.10 4.2.7.2.686 [id number] 059 [id number] [facility] 2023-06-21 00:00:00 2023-06-21 00:00:00 Telephone Hari [facility] BUILDING 1.2.840.114 350.1.13.10 4.2.7.2.686 [id number] 059 [id number] [facility] 2023-06-20 00:00:00 2023-06-20 00:00:00 Orders Only Doctor Unassigned, [place] [facility] 1.2.840.114 350.1.13.10 4.2.7.2.686 [id number] [id number] [facility] 2023-05-01 00:00:00 2023-05-01 00:00:00 Refill Hari [facility] 1.2.840.114 350.1.13.10 4.2.7.2.686 [id number] 059 [id number] [facility] 2023-04-12 05:44:00 2023-04-12 10:31:00 Emergency ROLANDO LOPEZ [facility] [id number] [facility] 2023-04-12 05:44:00 2023-04-12 10:31:00 Emergency Rosanne Márquez Charles [facility] 1.2840.114 350.1.13.10 4.2.7.2.686 [id number] 084 [id number] [facility] 2022-12-26 13:00:00 2022-12-26 13:20:58 Outpatient R [facility]I [facility] [id number] [facility] 2022-12-26 13:00:00 2022-12-26 13:20:58 Office Visit Hari [facility] BUILDING 1.2840.114 350.1.13.10 4.2.7.2.686 [id number] 059 [id number] [facility] 2022-12-26 00:00:00 2022-12-26 00:00:00 Orders Only Doctor Unassigned, [place] [facility] 1.840.114 350.1.13.10 4.2.7.2.686 [id number] 009 [id number] [facility] 2022-11-20 15:00:00 2022-11-20 15:00:00 Outpatient R HARI [facility] [id number] [facility] 2022-11-13 00:00:00 2022-11-13 00:00:00 Orders Only Doctor Unassigned, [place] [facility] 1.840.114 350.1.13.10 4.2.7.2.686 [id number] 009 [id number] [facility] 2022-09-11 00:00:00 2022-09-11 00:00:00 Refill Hari [facility] BUILDING 1.0.114 350.1.13.10 4.2.7.2.686 [id number] 059 [id number] [facility] 2022-09-06 00:00:00 2022-09-06 00:00:00 Transition of Care Maria Luisa Spicer 1.20.114 350.1.13.10 4.2.7.2.686 [id number] [facility] 2022-09-03 20:44:00 2022-09-05 17:29:00 Outpatient X TERESA PERALES [facility] [id number] [facility] 2022-09-03 20:44:00 2022-09-05 17:29:00 Emergency Antonio Higgins, Jumana Schulzcrissy Teresa [facility] 1.2.840.114 350.1.13.10 4.2.7.2.686 [id number] 080 [id number] [facility] 2022-06-06 00:00:00 2022-06-06 00:00:00 Telephone Hari [facility] PROFESSIO NAL BUILDING 1.2.840.114 350.1.13.10 4.2.7.2.686 [id number] 059 [id number] [facility] 2022-05-24 10:30:00 2022-05-24 10:45:00 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 Visit 2, Adc Lab Hari [facility] PROFESSIO NAL BUILDING 1.2.840.114 350.1.13.10 4.2.7.2.686 [id number] [facility] 2022-05-24 10:30:00 2022-05-24 10:30:00 Outpatient R HARI [facility] [id number] [facility] 2022-05-23 15:00:00 2022-05-23 15:37:53 Outpatient R HARI [facility] [id number] [facility] 2022-05-23 15:00:00 2022-05-23 15:37:53 [facility] 1.2.840.114 350.1.13.10 4.2.7.2.686 [id number] 059 [id number] [facility] 2022-05-23 15:00:00 2022-05-23 15:37:53 Outpatient [place] [facility] [id number] [facility] 2022-05-23 00:00:00 2022-05-23 00:00:00 Orders Only Doctor Unassigned, [place] [facility] 1..840.114 350.1.13.10 4.2.7.2.686 [id number] [facility] 2022-05-18 11:20:00 2022-05-18 11:20:00 Outpatient Eagle NORIEGA [facility] [id number] [facility] 2022-03-28 14:00:00 2022-03-28 14:00:00 Outpatient Eagle NORIEGA [facility] [id number] [facility] 2021-11-22 14:00:00 2021-11-22 14:00:00 Outpatient Eagle NORIEGA [facility] [id number] [facility] 2021-08-18 00:00:00 2021-08-18 00:00:00 Transition of Care Maria Luisa Spicer ANGEL 1..840.114 350.1.13.10 4.2.7.2.686 [id number] [facility] 2021-08-15 06:02:00 2021-08-17 17:07:00 Inpatient X TERESA PERALES [facility] [id number] [facility] 2021-08-15 06:02:00 2021-08-17 17:07:00 Hospital Encounter Antonio Higgins David Oville, Teresa Ceja [facility] 1..840.114 350.1.13.10 4.2.7.2.686 [id number] 080 [id number] [facility] 2021-07-24 14:30:00 2021-07-24 14:30:00 Outpatient MARK RENTERIA [facility] [id number] [facility] 2021-07-24 14:30:00 2021-07-24 14:27:25 Outpatient R UMERMARK [facility] [id number] [facility] 2021-07-24 14:27:18 2021-07-24 14:27:25 Imm/Inj Visit Nurse, Ran Polanie Immunizatio Chano Spearss Christofer [facility] 1.2.840.114 350.1.13.10 4.2.7.2.686 [id number] [facility] 2021-07-24 14:00:00 2021-07-24 14:21:52 Outpatient R CARI [facility] [id number] [facility] 2021-07-24 13:59:53 2021-07-24 14:21:52 [facility] 1.2.840.114 350.1.13.10 4.2.7.2.686 [id number] 059 [id number] [facility] 2021-07-08 21:20:00 2021-07-08 22:06:00 Emergency Sánchez Ga S [facility] 1.2.840.114 350.1.13.10 4.2.7.2.686 [id number] 084 [id number] [facility] 2021-07-08 21:20:00 2021-07-08 22:06:00 Emergency X SÁNCHEZ GA [facility] ERT [id number] [facility] 2021-07-05 00:00:00 2021-07-05 00:00:00 Transition of Care Joan Lipscomb 1.2840.114 350.1.13.10 4.2.7.2.686 [id number] [facility] 2021-07-02 22:38:00 2021-07-04 17:11:00 Emergency Drever, Rasheed Pastor [facility] 1.2.840.114 350.1.13.10 4.2.7.2.686 [id number] 081 [id number] [facility] 2021-07-02 22:38:00 2021-07-04 17:11:00 Outpatient X RASHEED BISHOP [facility] [id number] [facility] 2021-06-30 14:20:00 2021-06-30 14:20:00 Outpatient R [facility]I [facility] [id number] [facility] 2021-03-23 00:00:00 2021-05-19 00:00:00 Outpatient NEW ADMISSION JAYME TOLBERT ENCCLR ENCCLR [id number] [facility] 2021-03-31 00:00:00 2021-03-31 00:00:00 Telephone Hari [facility] 1.2.840.114 350.1.13.10 4.2.7.2.686 [id number] 059 [id number] [facility] 2021-03-29 14:34:18 2021-03-29 14:49:18 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 Visit 2, Adc Lab Hari [facility] 1.2.840.114 350.1.13.10 4.2.7.2.686 [id number] [facility] 2021-03-29 13:47:36 2021-03-29 14:28:01 Office Visit Hari [facility] 1.2.840.114 350.1.13.10 4.2.7.2.686 [id number] 059 [id number] [facility] 2021-03-29 14:00:00 2021-03-29 14:00:00 Outpatient R CARI [facility] [id number] [facility] 2021-03-29 00:00:00 2021-03-29 00:00:00 Orders Only Doctor Unassigned, [place] [facility] 1.2840.114 350.1.13.10 4.2.7.2.686 [id number] [id number] [facility] 2021-03-24 00:00:00 2021-03-24 00:00:00 Telephone [facility]Bartolo [facility] 1.2840.114 350.1.13.10 4.2.7.2.686 [id number] 059 [id number] [facility] 2021-03-14 00:00:00 2021-03-14 00:00:00 Transition of Care Maria Luisa Spicer 1.2840.114 350.1.13.10 4.2.7.2.686 [id number] [facility] 2021-03-13 00:00:00 2021-03-13 00:00:00 Transition of Care Maria Luisa Spicer 1.2840.114 350.1.13.10 4.2.7.2.686 [id number] [facility] 2021-03-08 11:31:00 2021-03-10 14:07:00 Emergency Brett Salmeron [facility] 1.20.114 350.1.13.10 4.2.7.2.686 [id number] [facility] 2021-03-08 00:00:00 2021-03-08 00:00:00 Orders Only Doctor Unassigned, [place] [facility] 1.2840.114 350.1.13.10 4.2.7.2.686 [id number] [facility] 2021-01-07 12:09:00 2021-01-07 16:53:00 Emergency Mary Newton [facility] 1.2.840.114 350.1.13.10 4.2.7.2.686 [id number] [facility] 2020-12-28 00:00:00 2020-12-28 00:00:00 [facility] 1.2.840.114 350.1.13.10 4.2.7.2.686 [id number] [facility] 2020-12-26 14:44:41 2020-12-26 14:59:41 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 Visit 2, [facility] 1.2.840.114 350.1.13.10 4.2.7.2.686 [id number] [facility] 2020-12-26 13:58:26 2020-12-26 14:39:15 [facility] 1.2.840.114 350.1.13.10 4.2.7.2.686 [id number] [facility] 2020-12-26 14:00:00 2020-12-26 14:00:00 [facility] [id number] [facility] 2020-10-27 00:00:00 2020-10-27 00:00:00 [facility] 1.2.840.114 350.1.13.10 4.2.7.2.686 [id number] [facility] 2020-10-25 15:20:00 2020-10-25 15:20:00 [facility] [id number] [facility] 2020-09-20 14:45:31 2020-09-20 15:38:00 Office Visit Hari [facility] 1.2.840.114 350.1.13.10 4.2.7.2.686 [id number] [facility] 2020-09-20 15:00:00 2020-09-20 15:00:00 Outpatient R BARTOLO NORIEGA [facility] [id number] [facility] 2020-09-13 00:00:00 2020-09-13 00:00:00 Transition of Care Joan Lipscomb 1.2.840.114 350.1.13.10 4.2.7.2.686 [id number] [facility] 2020-09-08 16:35:00 2020-09-10 16:00:00 [facility] Stephenie Ritchie, Rossi Payan, Ward Chinchilla, [facility] 1.2.840.114 350.1.13.10 4.2.7.2.686 [id number] [facility] 2020-09-10 00:00:00 2020-09-10 00:00:00 Telephone Bartolo Noriega [facility] Building 1.2.840.114 350.1.13.10 4.2.7.2.686 [id number] [facility] 2020-09-05 21:00:00 2020-09-06 01:09:00 Emergency Favio Mcneil [facility] 1.2.840.114 350.1.13.10 4.2.7.2.686 [id number] [facility] 2020-09-05 21:00:00 2020-09-06 01:09:00 Emergency X FAVIO [facility] ERT [id number] [facility] 2020-09-05 00:00:00 2020-09-05 00:00:00 [facility] 1.2.840.114 350.1.13.10 4.2.7.2.686 [id number] [facility] 2020-07-29 09:53:30 2020-07-29 12:09:11 [facility] [facility] Building 1.2.840.114 350.1.13.10 4.2.7.2.686 [id number] 059 [id number] [facility] 2020-07-29 11:00:00 2020-07-29 11:00:00 Outpatient R [facility]I [facility] [id number] [facility] 2020-07-13 00:00:00 2020-07-13 00:00:00 Telephone [facility]ari [facility] [place] Office Building 1.2.840.114 350.1.13.10 4.2.7.2.686 [id number] 059 [id number] [facility] 2020-07-12 08:01:48 2020-07-12 08:54:24 Laboratory Only Pc, Adc Echo Room 1 - Sebastián Werner [facility] Building 1.2.840.114 350.1.13.10 4.2.7.2.686 [id number] 059 [id number] [facility] 2020-07-12 08:03:19 2020-07-12 08:33:19 Nurse Visit Visit, Adc Nurse Sebastián Werner [facility] Building 1.2.840.114 350.1.13.10 4.2.7.2.686 [id number] [id number] [facility] 2020-07-12 08:00:00 2020-07-12 08:00:00 Outpatient R [facility] [id number] [facility] 2020-06-30 12:44:57 2020-06-30 13:17:41 Office Visit Mayo Gonzalez [facility] 1.2.840.114 350.1.13.10 4.2.7.2.686 [id number] [facility] 2020-06-30 13:00:00 2020-06-30 13:00:00 Outpatient R MAYO GONZALEZ [facility] [id number] [facility] 2020-06-28 16:29:10 2020-06-28 17:14:26 [facility] 1.2.840.114 350.1.13.10 4.2.7.2.686 [id number] 059 [id number] [facility] 2020-06-28 16:40:00 2020-06-28 16:40:00 [facility] [id number] [facility] 2020-06-27 12:41:00 2020-06-27 15:36:00 Emergency Sohail Rae [facility] 1.2.840.114 350.1.13.10 4.2.7.2.686 [id number] [facility] 2020-06-23 12:45:42 2020-06-23 13:17:54 Office Visit Mayo Gonzalez [facility] jessica [place] 1.2.840.114 350.1.13.10 4.2.7.2.686 [id number] [facility] 2020-06-23 13:00:00 2020-06-23 13:00:00 Outpatient R [facility] [id number] [facility] 2020-06-16 12:55:41 2020-06-16 13:20:46 [facility] [place] 1.2.840.114 350.1.13.10 4.2.7.2.686 [id number] [facility] 2020-06-16 13:15:00 2020-06-16 13:15:00 Outpatient R MAYO GONZALEZ [facility] [id number] [facility] 2020-06-13 09:40:00 2020-06-13 09:40:00 Outpatient BARTOLO MANE [facility] [id number] [facility] 2020-05-25 00:00:00 2020-05-25 00:00:00 Orders Only Doctor Unassigned, [place] [facility] 1.2840.114 350.1.13.10 4.2.7.2.686 [id number] [id number] [facility] 2020-05-09 00:00:00 2020-05-09 00:00:00 Orders Only Doctor Unassigned, [place] [facility] 1.2840.114 350.1.13.10 4.2.7.2.686 [id number] [id number] [facility] 2020-05-05 13:02:21 2020-05-05 13:17:21 Office Visit Lisa [facility] 1.2.840.114 350.1.13.10 4.2.7.2.686 [id number] [facility] 2020-05-05 13:15:00 2020-05-05 13:15:00 [facility] [id number] [facility] 2020-02-26 08:21:04 2020-02-26 08:44:15 Office Visit Lisa [facility] 1.2.840.114 350.1.13.10 4.2.7.2.686 [id number] [facility] 2020-02-26 08:30:00 2020-02-26 08:30:00 Outpatient R [facility] [id number] [facility] 2020-02-26 00:00:00 2020-02-26 00:00:00 Orders Only Doctor Unassigned, [place] [facility] 1.2.840.114 350.1.13.10 4.2.7.2.686 [id number] [id number] [facility] 2020-02-16 14:40:00 2020-02-16 14:40:00 Outpatient R [facility] [id number] [facility] 2019-12-08 11:20:00 2019-12-08 11:20:00 Outpatient R [facility] [id number] [facility] 2019-12-08 08:08:43 2019-12-08 08:28:43 Telemedici ne Visit Hari [facility] Building 1.2.840.114 350.1.13.10 4.2.7.2.686 [id number] 059 [id number] [facility] 2019-11-12 00:00:00 2019-11-12 00:00:00 Refill Hari [facility] Building 1.2.840.114 350.1.13.10 4.2.7.2.686 [id number] 059 [id number] [facility] 2019-11-09 10:18:57 2019-11-09 10:53:22 Office Visit Lakeisha Pulido [facility] Building 1.2.840.114 350.1.13.10 4.2.7.2.686 [id number] [facility] 2019-11-09 10:45:00 2019-11-09 10:45:00 Outpatient R LAKEISHA PULIDO [facility] [id number] [facility] 2019-10-06 13:41:39 2019-10-06 14:44:59 Office Visit Lakeisha Pulido [facility] Building 1.2.840.114 350.1.13.10 4.2.7.2.686 [id number] [facility] 2019-06-04 14:13:28 2019-06-04 14:35:15 Office Visit Lakeisha Pulido [facility] 1.2.840.114 350.1.13.10 4.2.7.2.686 [id number] [facility] 2019-05-28 14:58:08 2019-06-01 13:46:23 Office Visit Lakeisha Pulido [facility] 1.2.840.114 350.1.13.10 4.2.7.2.686 [id number] [facility] 2019-05-21 15:42:37 2019-05-21 16:48:46 Office Visit Lakeisha Pulido [facility] 1.2.840.114 350.1.13.10 4.2.7.2.686 [id number] [facility] 2019-05-21 00:00:00 2019-05-21 00:00:00 Orders Only Doctor Unassigned, [place] [facility] 1.2.840.114 350.1.13.10 4.2.7.2.686 [id number] [id number] [facility] 2019-05-11 10:31:00 2019-05-13 15:13:00 Hospital Encounter Lakeisha Pulido [facility] 1.2.840.114 350.1.13.10 4.2.7.2.686 [id number] 081 [id number] [facility] 2019-05-11 00:00:00 2019-05-11 00:00:00 Orders Only Doctor Unassigned, [place] [facility] 1.2.840.114 350.1.13.10 4.2.7.2.686 [id number] [id number] [facility] 2019-05-01 00:00:00 2019-05-01 00:00:00 Bartolo Barnard [facility] 1.2.840.114 350.1.13.10 4.2.7.2.686 [id number] 059 [id number] [facility] 2019-04-29 13:32:19 2019-04-29 14:08:16 Office Visit Bartolo Noriega [facility] 1.2.840.114 350.1.13.10 4.2.7.2.686 [id number] 059 [id number] [facility] 2019-04-15 00:00:00 2019-04-15 00:00:00 Prep For Surgery Lara Sylvester [facility] 1.2.840.114 350.1.13.10 4.2.7.2.686 [id number] [facility] 2019-04-14 14:31:31 2019-04-14 15:40:28 Office Visit Lakeisha Pulido [facility] 1.2.840.114 350.1.13.10 4.2.7.2.686 [id number] [facility] 2016-06-21 02:04:00 2016-06-21 21:54:00 Observatio n nullFlavo r [facility] [id number] [facility] Results Test Description Test Time Test Comments Results Result Comments Source XR CHEST 2 18:43:37 PROCEDURE: XR CHEST 2 04/07/2024 12:59 PM CLINICAL INDICATION: sob COMPARISON: Radiograph of 08/15/2021 TECHNIQUE: PA and lateral views of the chest FINDINGS: The lungs are well-expanded. Hazy opacification of jude, vascularcongestion and increased interstitial marking are noted. Blunting of theleft costophrenic angle secondary to fat and and elevated hemidiaphragmlimits evaluation of pleural effusion. No right pleural effusion. Nopneumothorax. The cardiac size is enlarged and is stable. No aggressive osseous lesion. [facility] [id number] 17:55:22* Test Item Value Reference Range Interpretation Comme nts TROPONIN I (test code = 8377198830) <=0.034 JAYASHREE (test code = JAYASHREE) Reference (Normal) Range (defined by the 99th percentile reference limit): <= 0.034 ng/mL Note: Cardiac troponin begins to rise 3-4 hours after the onset of ischemia. Repeat in 4-6 hours if the sample was drawn within 3-4 hours of the onset of the symptom and found normal. Diagnosis of myocardial injury is made with acute changes in cTn concentrations with at least one serial sample above the 99th percentile upper reference limit (URL), taken together with the patient's clinical presentation. Biotin has been reported to cause a negative bias, interpret results relative to patient's use of biotin. Lab Interpretation (test code = 67246-5) Normal [facility] Metabolic Panel (NA, K, CL, CO2, GLUCOSE, BUN, CREATININE, CA)2024-04-07 17:43:38* Test Item Value Reference Range Interpretation Comme nts NA (test code = 7697157988) 142 mmol/L 135-145 K (test code = 6778383612) 3.5 mmol/L 3.5-5.0 CL (test code = 5143634615) 96 mmol/L 98-108 L CO2 TOTAL (test code = 9698862627) 37 mmol/L 23-31 H AGAP (test code = 0914317895) 9 2-16 BUN (test code = 6583039134) 14 mg/dL 7-23 GLUCOSE (test code = 5714405606) 125 mg/dL 70-110 H CREATININE (test code = 2160-0) 1.23 mg/dL 0.50-1.04 H CALCIUM (test code = 1717505164) 9.1 mg/dL 8.6-10.6 eGFR (test code = 68166-4) 44.2 mL/min/1.73m2 Lab Interpretation (test cod e = 88225-5) Abnormal [facility] acute hospital with [id number] 17:26:19* Test Item Value Reference Range Interpretation Comme nts WBC (test code = 6690-2) 5.03 4.30-11.10 RBC (test code = 789-8) 3.90 3.93-5.25 L HGB (test code = 718-7) 12.6 g/dL 11.6-15.0 HCT (test code = 4544-3) 39.2 % 35.7-45.2 MCV (test code = 787-2) 100.5 fL 80.6-95.5 H MCH (test code = 785-6) 32.3 pg 25.9-32.8 MCHC (test code = 786-4) 32.1 g/dL 31.6-35.1 RDW-SD (test code = 57983-4) 57.9 fL 39.0-49.9 H RDW-CV (test code = 788-0) 15.8 % 12.0-15.5 H PLT (test code = 777-3) 176 166-358 MPV (test code = 77392-6) 10.2 fL 9.5-12.9 NRBC/100 WBC (test code = 2394795779) 0.0 0.0-10.0 NRBC x10^3 (test code = 3254861859) See_Comment [Automated messa ge] The system which generated this result transmitted reference range: 10*3/?L. The reference range was not used to interpret this result as normal/abnormal. GRAN MAT (NEUT) % (test code = 770-8) 59.0 % IMM GRAN % (test code = 4655568181) 0.20 % LYMPH % (test code = 736-9) 30.6 % MONO % (test code = 5905-5) 8.2 % EOS % (test code = 713-8) 1.4 % BASO % (test code = 706-2) 0.6 % GRAN MAT x10^3(ANC) (test code = 3791135312) 2.97 10*3/uL 1.88-7.09 IMM GRAN x10^3 (test code = 3557475828) 0.00-0.06 LYMPH x10^3 (test code = 731-0) 1.54 10*3/uL 1.32-3.29 MONO x10^3 (test code = 742-7) 0.41 10*3/uL 0.33-0.92 EOS x10^3 (test code = 711-2) 0.07 10*3/uL 0.03-0.39 BASO x10^3 (test code = 704-7) 0.03 10*3/uL 0.01-0.07 Lab Interpretation (test code = 05474-6) Abnormal [facility] GLUCOSE (AUTOMATED)2024-01-01 17:10:01* Test Item Value Reference Range Interpretation Comme nts POCT GLU (test code = 1418996218) 115 mg/dL 70-110 H Lab Interpretation (test cod e = 48503-7) Abnormal [facility] GLUCOSE (AUTOMATED)2024-01-01 12:50:40* Test Item Value Reference Range Interpretation Comme nts POCT GLU (test code = 3565770131) 111 mg/dL 70-110 H Lab Interpretation (test cod e = 76384-1) Abnormal [facility] GLUCOSE (AUTOMATED)2024-01-01 01:02:35* Test Item Value Reference Range Interpretation Comme nts POCT GLU (test code = 5710720761) 126 mg/dL 70-110 H Lab Interpretation (test cod e = 37667-5) Abnormal [facility] GLUCOSE (AUTOMATED)2023-12-31 21:51:08* Test Item Value Reference Range Interpretation Comme nts POCT GLU (test code = 2642637628) 175 mg/dL 70-110 H Lab Interpretation (test cod e = 24150-9) Abnormal [facility] GLUCOSE (AUTOMATED)2023-12-31 16:38:04* Test Item Value Reference Range Interpretation Comme nts POCT GLU (test code = 0977769805) 174 mg/dL 70-110 H Lab Interpretation (test cod e = 95699-3) Abnormal [facility] GLUCOSE (AUTOMATED)2023-12-31 12:42:06* Test Item Value Reference Range Interpretation Comme nts POCT GLU (test code = 9143966859) 135 mg/dL 70-110 H Lab Interpretation (test cod e = 93631-1) Abnormal [facility] Metabolic Panel (NA, K, CL, CO2, GLUCOSE, BUN, CREATININE, CA)2023-12-31 10:20:52* Test Item Value Reference Range Interpretation Comme nts NA (test code = 2032228232) 139 mmol/L 135-145 K (test code = 5630659658) 4.1 mmol/L 3.5-5.0 CL (test code = 3234295702) 100 mmol/L 98-108 CO2 TOTAL (test code = 2501703385) 33 mmol/L 23-31 H AGAP (test code = 5110880757) 6 2-16 BUN (test code = 0515297294) 33 mg/dL 7-23 H GLUCOSE (test code = 9534413676) 148 mg/dL 70-110 H CREATININE (test code = 2160-0) 2.01 mg/dL 0.50-1.04 H CALCIUM (test code = 8285306111) 8.5 mg/dL 8.6-10.6 L eGFR (test code = 88412-4) 24.5 mL/min/1.73m2 CKD-EPI eGFR (2020). Assuming creatinine has been stable day-to-day for at least three months, the eGFR indicates Category G4 (15 - 29 mL/min/1.73 m2) Lab Interpretation (test code = 90699-1) Abnormal [facility]2024-04-16 10:20:52* Test Item Value Reference Range Interpretation Comme nts MAGNESIUM (test code = 7303940183) 1.9 mg/dL 1.7-2.4 Lab Interpretation (test cod e = 76652-2) Normal General acute hospital with [id number] 10:12:49* Test Item Value Reference Range Interpretation Comme nts WBC (test code = 6690-2) 7.01 4.30-11.10 RBC (test code = 789-8) 3.71 3.93-5.25 L HGB (test code = 718-7) 11.8 g/dL 11.6-15.0 HCT (test code = 4544-3) 36.1 % 35.7-45.2 MCV (test code = 787-2) 97.3 fL 80.6-95.5 H MCH (test code = 785-6) 31.8 pg 25.9-32.8 MCHC (test code = 786-4) 32.7 g/dL 31.6-35.1 RDW-SD (test code = 96710-7) 52.4 fL 39.0-49.9 H RDW-CV (test code = 788-0) 14.6 % 12.0-15.5 PLT (test code = 777-3) 125 166-358 L MPV (test code = 29725-3) 10.6 fL 9.5-12.9 IPF % (test code = 5221851565) 4.5 % 1.3-7.7 Platelet count measured by fluorescence method. NRBC/100 WBC (test code = 9095747835) 0.0 0.0-10.0 NRBC x10^3 (test code = 7831522624) See_Comment [Automated messa ge] The system which generated this result transmitted reference range: 10*3/?L. The reference range was not used to interpret this result as normal/abnormal. GRAN MAT (NEUT) % (test code = 770-8) 74.5 % IMM GRAN % (test code = 3905217533) 0.30 % LYMPH % (test code = 736-9) 18.5 % MONO % (test code = 5905-5) 6.7 % EOS % (test code = 713-8) 0.0 % BASO % (test code = 706-2) 0.0 % GRAN MAT x10^3(ANC) (test code = 9305741450) 5.22 10*3/uL 1.88-7.09 IMM GRAN x10^3 (test code = 0975920513) 0.00-0.06 LYMPH x10^3 (test code = 731-0) 1.30 10*3/uL 1.32-3.29 L MONO x10^3 (test code = 742-7) 0.47 10*3/uL 0.33-0.92 EOS x10^3 (test code = 711-2) 0.03-0.39 L BASO x10^3 (test code = 704-7) 0.01-0.07 Lab Interpretation (test code = 11156-0) Abnormal [facility] CampusProthrombin Time / [id number] 10:12:29* Test Item Value Reference Range Interpretation Comme nts PROTIME PATIENT (test code = 5964-2) 13.2 10.1-12.6 H INR (test code = 6301-6) 1.1 Normal INR <1.1; Warfarin Therapeutic range 2.0 to 3.0 or 2.5 to 3.5, depending upon the indications. Lab Interpretation (test code = 70391-9) Abnormal [facility] (AUT[facility])2023-12-31 01:09:37* Test Item Value Reference Range Interpretation Comme [facility] POCT GLU (test code = 1815031172) 224 mg/dL 70-110 H Lab Interpretation (test cod e = 39124-7) Abnormal [facility]Transthoracic echo (TTE)2023-12-30 23:42:32* Test Item Value Reference Range Interpretation Comme nts Height (test code = 0162085708) 60 in Weight (test code = 5702770428) 221 lbs Systolic BP (test code = 0228067097) 119 mmHg Diastolic BP (test code = 9023752722) 70 mmHg Heart Rate (test code = 1557940734) 112 bpm BSA (test code = 4519654147) 1.95 m2 Ao root diam (test code = 5633477680) 3.10 cm Aortic root (test code = 6220835749) 3.1 cm Ao root annulus (test code = 4756181440) 3.1 cm LA size (test code = 3643156990) 4.5 cm LVOT diameter (test code = 7048056963) 1.96 cm LVOT area (test code = 0472500894) 3.00 cm2 TR Peak Michelle (test code = 0340183093) 227.1 cm/s Triscuspid Valve Regurgitation Peak Gradient (test code = 5368877863) 20.6 mmHg MV Prop V (test code = 9911580451) 64.80 cm/s MV Peak E Michelle (test code = 4609484277) 88.6 cm/s MV Peak A Michelle (test code = 1165997637) 19.4 cm/s E/A ratio (test code = 1652368703) 4.60 ratio E wave decelartion time (test code = 5476188117) 0.23 s Aortic valve mean velocity (test code = 0749604859) 122.2 cm/s Ao peak michelle (test code = 6037536430) 165.3 cm/s Ao VTI (test code = 1391879087) 27.5 cm Ao max PG (test code = 7893267166) 10.90 mm[Hg] AV peak gradient (test code = 7200497298) 10.9 mmHg AV mean gradient (test code = 2501101033) 6.4 mmHg LVOT stroke volume (test code = 7418163677) 63.10 cm3 LVOT peak michelle (test code = 8925107975) 97.8 cm/s LVOT mn grad (test code = 7430292015) 2.5 mmHg AV LVOT peak gradient (test code = 0823807094) 3.8 mmHg LVOT peak VTI (test code = 8638118714) 20.9 cm AV area by cont VTI (test code = 5764597398) 2.3 cm2 AV area peak michelle (test code = 0122840412) 1.8 cm2 LV V1 mean (test code = 8464463570) 76.30 cm/s AV valve area (test code = 8940929009) 2.29 cm2 Tapse (test code = 3190595048) 1.48 cm LVIDD (test code = 3860055005) 4.10 cm Left Ventricular End Diastolic Volume by Teichholz Method (test code = 0080680) 73.6 mL IVS (test code = 9593604039) 1.12 cm Interventricular Septum Diastolic Thickness by 2D (test code = 1377224) 1.12 cm LVPWD (test code = 2725929572) 1.12 cm PW (test code = 0530822341) 1.12 cm 0.6-1.1 EF(Teich) (test code = 8100445951) 67.50 % LVIDS (test code = 1891718505) 2.60 cm Left Ventricular End Systolic Volume by Teichholz Method (test code = 5263724) 23.9 mL FS (test code = 5153385399) 37 % EF - 2D (test code = 23724255) 67.50 % LAV(MOD-sp4) (test code = 3497418597) 90.00 mL Radiology Study observation (narrative) (test code = 66798-8) JAYASHREE (test code = JAYASHREE) ?Left?Ventricle: Left ventricle size is normal. Mildly increased wall thickness. Normal wall motion. Normal systolic function with a visually estimated EF of 55 - 60%. Diastolic dysfunction. Elevated left ventricular filling pressure. ?Right?Ventricle: Right ventricle is mildly dilated. Mildly reduced systolic function. ?Left?Atrium: Left atrium is moderately dilated. ?Aortic?Valve: Mild transvalvular regurgitation. ?Tricuspid?Valve: Mild transvalvular regurgitation. Right ventricular systolic pressure is 25-30 mmHg. ?RA pressure is 5-10 mmHg. ?Pericardium: Small pericardial effusion present. Left VentricleLeft ventricle size is normal. Mildly increased wall thickness. Normal wall motion. Normal systolic function with a visually estimated EF of 55 - 60%. Diastolic dysfunction. Elevated left ventricular filling pressure.Right VentricleRight ventricle is mildly dilated. Mildly reduced systolic function.Left AtriumLeft atrium is moderately dilated.Right AtriumRight atrium size is normal.Mitral ValveMildly calcified leaflets. Mild mitral annular calcification. Trace transvalvular regurgitation.Tricusp id ValveTricuspid valve structure is grossly normal. Mild transvalvular regurgitation. Right ventricular systolic pressure is 25-30 mmHg. RA pressure is 5-10 mmHg.Aortic ValveAortic valve opens well. Mildly calcified cusps. Mild transvalvular regurgitation.Pulmoni c ValveNot well visualized. Trace transvalvular regurgitation.Ascendi ng AortaNormal sized aortic root.PericardiumSmall pericardial effusion present.Study DetailsA complete echocardiogram was performed using 2D, color flow Doppler and spectral Doppler. The apical, parasternal and subcostal views were obtained. 5 mL of Lumason ultrasound enhancing agent used. [facility] CampusProthrombin Time / [id number] 23:33:05* Test Item Value Reference Range Interpretation [facility] PROTIME PATIENT (test code = 5964-2) 14.3 10.1-12.6 H INR (test code = 6301-6) 1.2 Normal INR <1.1; Warfarin Therapeutic range 2.0 to 3.0 or 2.5 to 3.5, depending upon the indications. Lab Interpretation (test code = 40977-6) Abnormal [facility] GLUCOSE (AUTOMATED)2023-12-30 21:52:16* Test Item Value Reference Range Interpretation [facility] POCT GLU (test code = 5429962507) 222 mg/dL 70-110 H Lab Interpretation (test cod e = 64242-2) Abnormal [facility] GLUCOSE (AUTOMATED)2023-12-30 16:48:32* Test Item Value Reference Range Interpretation Comme nts POCT GLU (test code = 4466774129) 170 mg/dL 70-110 H Lab Interpretation (test cod e = 77322-3) Abnormal [facility] GLUCOSE (AUTOMATED)2023-12-30 12:52:08* Test Item Value Reference Range Interpretation Comme nts POCT GLU (test code = 7031442555) 130 mg/dL 70-110 H Lab Interpretation (test cod e = 27127-0) Abnormal [facility] GLUCOSE (AUTOMATED)2023-12-30 01:40:59* Test Item Value Reference Range Interpretation Comme nts POCT GLU (test code = 1976463382) 139 mg/dL 70-110 H Lab Interpretation (test cod e = 74925-3) Abnormal [facility] GLUCOSE (AUTOMATED)2023-12-29 21:44:05* Test Item Value Reference Range Interpretation Comme nts POCT GLU (test code = 1594752336) 136 mg/dL 70-110 H Lab Interpretation (test cod e = 69527-6) Abnormal [facility] CampusGlycosylated Hemoglobin (A1C)2023-12-29 21:24:14* Test Item Value Reference Range Interpretation Comme nts HGB A1C (test code = 4548-4) 5.8 % 4.0-5.7 H JAYASHREE (test code = JAYASHREE) Reference RangesNormal: <5.7%Prediabetes: 5.7 - 6.4%Diabetes: > 6.5% Lab Interpretation (test code = 10767-6) Abnormal [facility] CampusN-TERMINAL [id number] 16:53:24* Test Item Value Reference Range Interpretation Comme [facility] NT-proBNP (test code = 27406-2) 2130 pg/mL <=125 H JAYASHREE (test code = JAYASHREE) Positive: Heart Failure Likely Lab Interpretation (test code = 46685-5) Abnormal [facility] CampusCT THORAX W [id number] 16:24:05CT SCAN OF THE THORAX, ABDOMEN, AND PELVIS WITH IV CONTRAST HISTORY: 83 years -old Female with Abdominal pain, acute, nonlocalized abd. Patient presented with diarrhea and dizziness for 2 days. TECHNIQUE: A CT scan of the thorax, abdomen, and pelvis was performed afterthe administration of intravenous contrast. Coronal and sagittalreformatted images were obtained. COMPARISON: CT abdomen pelvis dated 04/12/2023 FINDINGS: THORAX: Lower neck/thyroid: A 1.8 cm heterogenous nodule is seen in the rightthyroid. Multiple subcentimeter thyroid nodules are seen in bilateralthyroid lobes. Lungs/Pleura: Normal lung volumes. Diffuse patchy groundglass opacities andinterlobular septal thickening is seen. Diffuse bronchial wall thickening.Trace pleural effusions. No pneumothorax. Central airway: The central airways are clear. Thoracic aorta and great vessels: Severe calcifications of the aorta. Pulmonary arteries: Borderline pulmonary trunk measures 3 cm. The mainpulmonary arteries measures 3 cm on the right and 2.9 cm on the left.Mitral annulus calcifications. Heart and pericardium: Severe coronary artery calcification. Moderatebiatrial cardiomegaly. Lymph nodes: Enlarged pretracheal lymph node measuring up to 1.4 cm. Mediastinum: Unremarkable. Thoracic spine and chest wall: Age indeterminate fractures of the lateralleft eighth and ninth ribs, likely subacute/acute. Chronic fractures of theright seventh and eighth ribs. Multilevel anterior bridging osteophytes(DISH type). ABDOMEN/PELVIS: LIVER: No focal lesions. No biliary ductal dilation. GALLBLADDER: Post cholecystectomy changes. Mild dilatation of the CBD up to1 cm and intrahepatic ducts, likely related to reservoir phenomenon. SPLEEN: Mild splenomegaly with spleen measuring up to 13.2 cm in APlength.. No punctate calcified granulomas. PANCREAS: No masses or ductal dilatation. ADRENAL GLANDS: No adrenal nodules. KIDNEYS: Multifocal scarring of bilateral kidneys. Punctate nonobstructingstone measuring up to 4 mm on the right. Stable renal cysts. Nohydronephrosis. Trace perinephric fat stranding, nonspecific. PERITONEUM AND RETROPERITONEUM: No free air or fluid. LYMPH NODES: No enlarged lymphadenopathy. GI TRACT: No dilatation. Colonic diverticulosis without diverticulitis. 2focal short segment thickening of the proximal descending colon (18:43).Normal appendix. PELVIS: Mild bladder wall thickening. 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 Severe atherosclerotic calcifications. Perihepaticvarices. Stable 2.1 cm calcified splenic aneurysm from 2021. A splenicstent is suspected. BONES AND SOFTTISSUES: Moderate degenerative changes of the thoracolumbarspine. Generalized osteopenia. [facility] P[facility] W [id number] 16:24:05CT SCAN OF THE THORAX, ABDOMEN, AND PELVIS WITH IV CONTRAST HISTORY: 83 years -old Female with Abdominal pain, acute, nonlocalized abd. Patient presented with diarrhea and dizziness for 2 days. TECHNIQUE: A CT scan of the thorax, abdomen, and pelvis was performed afterthe administration of intravenous contrast. Coronal and sagittalreformatted images were obtained. COMPARISON: CT abdomen pelvis dated 04/12/2023 FINDINGS: THORAX: Lower neck/thyroid: A 1.8 cm heterogenous nodule is seen in the rightthyroid. Multiple subcentimeter thyroid nodules are seen in bilateralthyroid lobes. Lungs/Pleura: Normal lung volumes. Diffuse patchy groundglass opacities andinterlobular septal thickening is seen. Diffuse bronchial wall thickening.Trace pleural effusions. No pneumothorax. Central airway: The central airways are clear. Thoracic aorta and great vessels: Severe calcifications of the aorta. Pulmonary arteries: Borderline pulmonary trunk measures 3 cm. The mainpulmonary arteries measures 3 cm on the right and 2.9 cm on the left.Mitral annulus calcifications. Heart and pericardium: Severe coronary artery calcification. Moderatebiatrial cardiomegaly. Lymph nodes: Enlarged pretracheal lymph node measuring up to 1.4 cm. Mediastinum: Unremarkable. Thoracic spine and chest wall: Age indeterminate fractures of the lateralleft eighth and ninth ribs, likely subacute/acute. Chronic fractures of theright seventh and eighth ribs. Multilevel anterior bridging osteophytes(DISH type). ABDOMEN/PELVIS: LIVER: No focal lesions. No biliary ductal dilation. GALLBLADDER: Post cholecystectomy changes. Mild dilatation of the CBD up to1 cm and intrahepatic ducts, likely related to reservoir phenomenon. SPLEEN: Mild splenomegaly with spleen measuring up to 13.2 cm in APlength.. No punctate calcified granulomas. PANCREAS: No masses or ductal dilatation. ADRENAL GLANDS: No adrenal nodules. KIDNEYS: Multifocal scarring of bilateral kidneys. Punctate nonobstructingstone measuring up to 4 mm on the right. Stable renal cysts. Nohydronephrosis. Trace perinephric fat stranding, nonspecific. PERITONEUM AND RETROPERITONEUM: No free air or fluid. LYMPH NODES: No enlarged lymphadenopathy. GI TRACT: No dilatation. Colonic diverticulosis without diverticulitis. 2focal short segment thickening of the proximal descending colon (18:43).Normal appendix. PELVIS: Mild bladder wall thickening. 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 Severe atherosclerotic calcifications. Perihepaticvarices. Stable 2.1 cm calcified splenic aneurysm from 2021. A splenicstent is suspected. BONES AND SOFTTISSUES: Moderate degenerative changes of the thoracolumbarspine. Generalized osteopenia. [facility]TROPONIN [id number] 14:49:49* Test Item Value Reference Range Interpretation Comme nts TROPONIN I (test code = 4622210868) 0.013 ng/mL <=0.034 JAYASHREE (test code = JAYASHREE) Reference (Normal) Range (defined by the 99th percentile reference limit): <= 0.034 ng/mL Note: Cardiac troponin begins to rise 3-4 hours after the onset of ischemia. Repeat in 4-6 hours if the sample was drawn within 3-4 hours of the onset of the symptom and found normal. Diagnosis of myocardial injury is made with acute changes in cTn concentrations with at least one serial sample above the 99th percentile upper reference limit (URL), taken together with the patient's clinical presentation. Biotin has been reported to cause a negative bias, interpret results relative to patient's use of biotin. Lab Interpretation (test code = 23193-2) Normal [facility] CampusMagnesium2024-04-14 14:38:48* Test Item Value Reference Range Interpretation Comme nts MAGNESIUM (test code = 2207677013) 1.9 mg/dL 1.7-2.4 Lab Interpretation (test cod e = 60235-3) Normal [facility]. METABOLIC PANEL ([id number])2023-12-29 14:38:08* Test Item Value Reference Range Interpretation Comme nts NA (test code = 8280737959) 142 mmol/L 135-145 K (test code = 4813228472) 3.8 mmol/L 3.5-5.0 CL (test code = 0807956954) 108 mmol/L 98-108 CO2 TOTAL (test code = 1734067821) 27 mmol/L 23-31 AGAP (test code = 6224418711) 7 2-16 BUN (test code = 7708881025) 12 mg/dL 7-23 GLUCOSE (test code = 1313973751) 146 mg/dL 70-110 H CREATININE (test code = 2160-0) 0.95 mg/dL 0.50-1.04 TOTAL BILI (test code = 0034222477) 1.8 mg/dL 0.1-1.1 H CALCIUM (test code = 6235873243) 9.6 mg/dL 8.6-10.6 T PROTEIN (test code = 0799847755) 8.6 g/dL 6.3-8.2 H ALBUMIN (test code = 1719211583) 4.1 g/dL 3.5-5.0 ALK PHOS (test code = 4386462012) 125 U/L 34-122 H ALTv (test code = 1742-6) 39 U/L 5-35 H AST(SGOT) (test code = 6214631627) 109 U/L 13-40 H eGFR (test code = 97924-0) 60.3 mL/min/1.73m2 CKD-EPI eGFR (2020). Assuming creatinine has been stable day-to-day for at least three months, the eGFR indicates Category G2 (60 - 89 mL/min/1.73 m2) Lab Interpretation (test code = 83940-8) Abnormal [facility] CampusLIPASE2024-04-14 14:38:08* Test Item Value Reference Range Interpretation Comme nts LIPASE (test code = 2823292867) 140 U/L 0-220 Lab Interpretation (test cod e = 65328-4) Normal [facility] CampusCBC WITH [id number] 14:27:14* Test Item Value Reference Range Interpretation Comme nts WBC (test code = 6690-2) 6.00 4.30-11.10 RBC (test code = 789-8) 4.47 3.93-5.25 HGB (test code = 718-7) 14.2 g/dL 11.6-15.0 HCT (test code = 4544-3) 43.1 % 35.7-45.2 MCV (test code = 787-2) 96.4 fL 80.6-95.5 H MCH (test code = 785-6) 31.8 pg 25.9-32.8 MCHC (test code = 786-4) 32.9 g/dL 31.6-35.1 RDW-SD (test code = 78659-9) 52.8 fL 39.0-49.9 H RDW-CV (test code = 788-0) 14.7 % 12.0-15.5 PLT (test code = 777-3) 106 166-358 L MPV (test code = 44074-2) 10.2 fL 9.5-12.9 IPF % (test code = 3354167935) 3.2 % 1.3-7.7 Platelet count measured by fluorescence method. NRBC/100 WBC (test code = 6415069066) 0.0 0.0-10.0 NRBC x10^3 (test code = 7770350135) See_Comment [Automated messa ge] The system which generated this result transmitted reference range: 10*3/?L. The reference range was not used to interpret this result as normal/abnormal. GRAN MAT (NEUT) % (test code = 770-8) 69.5 % IMM GRAN % (test code = 4390292697) 0.20 % LYMPH % (test code = 736-9) 23.3 % MONO % (test code = 5905-5) 6.0 % EOS % (test code = 713-8) 0.7 % BASO % (test code = 706-2) 0.3 % GRAN MAT x10^3(ANC) (test code = 5670636942) 4.17 10*3/uL 1.88-7.09 IMM GRAN x10^3 (test code = 1286638068) 0.00-0.06 LYMPH x10^3 (test code = 731-0) 1.40 10*3/uL 1.32-3.29 MONO x10^3 (test code = 742-7) 0.36 10*3/uL 0.33-0.92 EOS x10^3 (test code = 711-2) 0.04 10*3/uL 0.03-0.39 BASO x10^3 (test code = 704-7) 0.01-0.07 Lab Interpretation (test code = 10604-6) Abnormal [facility] [id number] 11:17:36* Test Item Value Reference Range Interpretation Comme nts TROPONIN I (test code = 7694429590) 0.022 ng/mL <=0.034 JAYASHREE (test code = JAYASHREE) Reference (Normal) Range (defined by the 99th percentile reference limit): <= 0.034 ng/mL Note: Cardiac troponin begins to rise 3-4 hours after the onset of ischemia. Repeat in 4-6 hours if the sample was drawn within 3-4 hours of the onset of the symptom and found normal. Diagnosis of myocardial injury is made with acute changes in cTn concentrations with at least one serial sample above the 99th percentile upper reference limit (URL), taken together with the patient's clinical presentation. Biotin has been reported to cause a negative bias, interpret results relative to patient's use of biotin. Lab Interpretation (test code = 30258-2) Normal [facility]. METABOLIC PANEL ([id number])2023-04-12 11:06:38* Test Item Value Reference Range Interpretation Comme nts NA (test code = 5745068663) 140 mmol/L 135-145 K (test code = 2574801364) 3.3 mmol/L 3.5-5.0 L CL (test code = 1035697877) 102 mmol/L 98-108 CO2 TOTAL (test code = 3070479736) 31 mmol/L 23-31 AGAP (test code = 8677667070) 7 2-16 BUN (test code = 4364036117) 17 mg/dL 7-23 GLUCOSE (test code = 4788766400) 141 mg/dL 70-110 H CREATININE (test code = 5003482569) 0.96 mg/dL 0.50-1.04 TOTAL BILI (test code = 2513641359) 1.8 mg/dL 0.1-1.1 H CALCIUM (test code = 4184183119) 9.3 mg/dL 8.6-10.6 T PROTEIN (test code = 0347965513) 8.4 g/dL 6.3-8.2 H ALBUMIN (test code = 8831674817) 4.0 g/dL 3.5-5.0 ALK PHOS (test code = 9853318021) 104 U/L 34-122 ALTv (test code = 1742-6) 35 U/L 5-35 AST(SGOT) (test code = 8813080718) 86 U/L 13-40 H eGFR (test code = 4406534361) 55.9 mL/min/1.73m2 JAYASHREE (test code = JAYASHREE) Association of Glomerular Filtration Rate (GFR) and Staging of Kidney Disease* + --+ --+ ------+| GFR (mL/min/1.73 m2) ?| With Kidney Damage ?| ?Without Kidney Damage+ --------+ --------+ +| ?>90 ?| ?Stage one ?| ? Normal ?+ ---+ ---+ -------+| ?60-89 ?| ?Stage two ?| ? Decreased GFR ? + --+ --+ ------+| ?30-59 ?| ?Stage three ?| ? Stage three ? + --+ --+ ------+| ?15-29 ?| ?Stage four ? | ? Stage four ?+ ---+ ---+ -------+| ?<15 (or dialysis) ? ?| ?Stage five ? | ? Stage five ?+ ---+ ---+ -------+ *Each stage assumes the associated GFR level has been in effect for at least three months. ?Stages 1 to 5, with or without kidney disease, indicate chronic kidney disease. Notes: Determination of stages one and two (with eGFR >59mL/min/1.73 m2) requires estimation of kidney damage for at least three months as defined by structural or functional abnormalities of the kidney, manifested by either:Pathological abnormalities or Markers of kidney damage (including abnormalities in the composition of the blood or urine or abnormalities in imaging tests). Lab Interpretation (test code = 17581-5) Abnormal [facility]LIP[facility]2023-07-28 11:05:37* Test Item Value Reference Range Interpretation Comme nts LIPASE (test code = 7748901261) 124 U/L 0-220 Lab Interpretation (test cod e = 32857-1) Normal [facility]CB WITH [id number] 11:01:54* Test Item Value Reference Range Interpretation Comme nts WBC (test code = 6690-2) 5.06 See_Comment [Automated Kadient] The system which generated this result transmitted reference range: 4.30 - 11.10 10*3/?L. The reference range was not used to interpret this result as normal/abnormal. RBC (test code = 789-8) 4.18 See_Comment [Automated Signal Patternsa ge] The system which generated this result transmitted reference range: 3.93 - 5.25 10*6/?L. The reference range was not used to interpret this result as normal/abnormal. HGB (test code = 718-7) 13.5 g/dL 11.6-15.0 HCT (test code = 4544-3) 39.3 % 35.7-45.2 MCV (test code = 787-2) 94.0 fL 80.6-95.5 MCH (test code = 785-6) 32.3 pg 25.9-32.8 MCHC (test code = 786-4) 34.4 g/dL 31.6-35.1 RDW-SD (test code = 95642-3) 52.3 fL 39.0-49.9 H RDW-CV (test code = 788-0) 15.2 % 12.0-15.5 PLT (test code = 777-3) 140 See_Comment L [Automated Signal Patternsa ge] The system which generated this result transmitted reference range: 166 - 358 10*3/?L. The reference range was not used to interpret this result as normal/abnormal. MPV (test code = 43122-7) 9.8 fL 9.5-12.9 IPF % (test code = 8245975051) 2.0 % 1.3-7.7 Platelet count measured by fluorescence method. NRBC/100 WBC (test code = 3954719836) 0.0 See_Comment [Automated Haptik ssage] The system which generated this result transmitted reference range: 0.0 - 10.0 /100 WBCs. The reference range was not used to interpret this result as normal/abnormal. NRBC x10^3 (test code = 9730985428) See_Comment [Automated Signal Patternsa ge] The system which generated this result transmitted reference range: 10*3/?L. The reference range was not used to interpret this result as normal/abnormal. GRAN MAT (NEUT) % (test code = 770-8) 65.4 % IMM GRAN % (test code = 1725684798) 0.20 % LYMPH % (test code = 736-9) 26.1 % MONO % (test code = 5905-5) 7.9 % EOS % (test code = 713-8) 0.2 % BASO % (test code = 706-2) 0.2 % GRAN MAT x10^3(ANC) (test code = 4546333529) 3.31 10*3/uL 1.88-7.09 IMM GRAN x10^3 (test code = 5191406234) 0.00-0.06 LYMPH x10^3 (test code = 731-0) 1.32 10*3/uL 1.32-3.29 MONO x10^3 (test code = 742-7) 0.40 10*3/uL 0.33-0.92 EOS x10^3 (test code = 711-2) 0.03-0.39 L BASO x10^3 (test code = 704-7) 0.01-0.07 Lab Interpretation (test code = 20220-7) Abnormal [facility]2016-10-06 16:14:00* Test Item Value Reference Range Interpretation Comme nts MPV (test code = MPV) 7.6 7.4-10.4 Platelet (test code = Platelet) 210 133-450 MCHC (test code = MCHC) 34.6 32.0-36.0 RDW (test code = RDW) 15.2 11.5-14.5 MCV (test code = MCV) 88.5 80.0-98.0 MCH (test code = MCH) 30.6 pg 27.0-31.0 Hct (test code = Hct) 22.1 36.0-48.0 Hgb (test code = Hgb) 7.6 12.0-16.0 RBC (test code = RBC) 2.50 4.20-5.40 WBC (test code = WBC) 12.4 3.7-10.4 [facility] [employer] [id number] 04:57:00* Test Item Value Reference Range Interpretation Comme nts RBC product (test code = RBC product) Product available (06/20/16 11:57 PM) [facility] [id number] 04:15:00* Test Item Value Reference Range Interpretation Comme nts Antibody Scrn (test code = Antibody Scrn) Negative (06/20/16 11:15 PM) ABO/Rh (test code = ABO/Rh) [facility]G [id number] 04:10:00* Test Item Value Reference Range Interpretation Comme nts eGFR (test code = eGFR) 35 Calcium Lvl (test code = Calcium Lvl) 8.8 8.5-10.5 CO2 (test code = CO2) 28 24-32 Chloride Lvl (test code = Chloride Lvl) 106 95-109 Glucose Lvl (test code = Glucose Lvl) 182 70-99 Potassium Lvl (test code = P otassium Lvl) 3.5 3.5-5.1 Creatinine Lvl (test code = Creatinine Lvl) 1.47 0.50-1.40 Sodium Lvl (test code = Sodium Lvl) 143 135-145 BUN (test code = BUN) 39 7-22 AGAP (test code = AGAP) 12.5 10.0-20.0 [facility] [id number] 04:10:00* Test Item Value Reference Range Interpretation Comme nts PTT (test code = PTT) 25.1 s 22.9-35.8 PT (test code = PT) 14.3 s 12.0-14.7 INR (test code = INR) 1.09 0.85-1.17 MPV (test code = MPV) 7.4 7.4-10.4 Hgb (test code = Hgb) 7.6 12.0-16.0 Hct (test code = Hct) 22.3 36.0-48.0 MCV (test code = MCV) 88.0 80.0-98.0 MCH (test code = MCH) 30.0 pg 27.0-31.0 MCHC (test code = MCHC) 34.0 32.0-36.0 WBC (test code = WBC) 13.4 3.7-10.4 RBC (test code = RBC) 2.54 4.20-5.40 RDW (test code = RDW) 14.9 11.5-14.5 Platelet (test code = Platelet) 245 133-450 Lymphocytes # (test code = Lymphocytes #) 1.8 1.0-5.5 Monocytes # (test code = Monocytes #) 0.7 <=0.8 Eosinophils (test code = Eosinophils) 0.1 <=4.0 Basophils (test code = Basophils) 0.2 <=1.0 Segs-Bands # (test code = Se gs-Bands #) 10.9 1.5-8.1 Monocytes (test code = Monocytes) 5.3 2.0-12.0 Segs (test code = Segs) 81.0 45.0-75.0 Lymphocytes (test code = Lymphocytes) 13.4 20.0-40.0 [facility] Consult Notes Date/Time Note Provider Source 2023-12-30 11:32:00 Associated Order(s): CONSULT PS PASTORAL CARE The Director [employer] visited the patient at bedside due to Pastoral Care consultation request. The patient was found to be asleep / resting comfortably in her bed. The patient had several family members present at bedside. The Director [employer] explored emotional or spiritual needs of the patient and family. The family expressed sadness regarding the patient's current health situation, and frustration because of what they feel as not receiving answers in timely from staff. During the Director [employer] visit active listening and empathy were employed to create a safe and supportive environment for the patient and their family. The Director [employer] attentively listened to their emotional expressions and validated their feelings of sadness, frustration and stress. Words of support were offered to acknowledge the difficulties they were experiencing and to provide reassurance that their emotions were valid congruent and understandable given their circumstances. Coping strategies were discussed to help the patient and their family navigate their current challenges the glass blower provided guidance on practical steps they could take to manage their stress and prioritize self-care. Additionally, the Director [employer] emphasized the importance of seeking support from family, friends and /or health housekeeper caregiver to alleviate the burden of caregiving. The expressed they find strength, comfort and peace in their Tenriism cristhian and supportive friends and family. The Director [employer] offered prayers of healing, comfort, and guidance tailored to their specific needs and concerns. The patients family actively participated in the prayer finding comfort in their shared spirituality. At the end of the visit the patient family expressed that they felt a sense of comfort and care during the conversation. The patients family expressed that they appreciated the opportunity to share their thoughts and feelings. The patients family expressed gratitude for the Director [employer] visit. Pastoral Care Dept. Follow-Up: As Needed Chaplain Jaime Suero [facility] Pastoral Care Department Jaime Suero [facility] - Health 2023-12-30 08:06:22 Associated Order(s): CONSULT CARDIOLOGY [facility] Cardiology Consult PCP: Jayme Tolbert Date of Service: 12/30/2023 CHIEF COMPLAINT/reason for consult: Heart failure History of Present Illness Emil Little is an 83 years old female with history of HTN, DM, splenic artery aneurysm, obesity, diastolic HF, severe ANNITA, chronic atrial fibrillation, and CAD NSTEMI s/p PCI OM1 with VALERIE in 04/2016. For the past week she has been having nausea, vomiting and diarrhea after eating spoiled food. She was unable to take any medications including cardiac medications. She became progressively short of breath, with episodes of chest pressure and elevated blood pressure. CT scan of the chest showed pulmonary edema. BNP was elevated. She was admitted for diuresis. PAST MEDICAL HISTORY Past Medical History: Diagnosis Date Atrial fibrillation CAD (coronary artery disease) s/p stents Chronic diastolic heart failure Depression Diabetes HTN (hypertension) Myocardial infarction 2014 Sleep apnea Denies CPAP Uterus cancer 1985 Past Surgical History: Procedure Laterality Date ARTERIOGRAM N/A 03/12/2017 Surgeon: Malik Miller; Location: [facility] [place] CHOLECYSTECTOMY 80s HYSTERECTOMY 87 VASCULAR STENTING N/A 03/12/2017 Surgeon: Malik Miller; Location: [facility] [place] VENTRAL HERNIORRHAPHY N/A 05/11/2019 Surgeon: Lakeisha Pulido MD; Location: [facility] OR Location Family History Problem Relation Age of Onset NH (myocardial infarction) Father 3-4 NH Coronary Heart Disease Son PCI ALLERGIES Allergies Allergen Reactions Hydrocodone Nausea and/or Vomiting Diflucan [Fluconazole] Unknown - See comments MEDICATIONS No current facility-administered medications on file prior to encounter. Current Outpatient Medications on File Prior to Encounter Medication Sig Dispense Refill metoprolol tartrate 25 mg tablet Take 0.5 tablets by mouth in the morning and 0.5 tablets in the evening. 60 tablet 3 ondansetron 4 mg disintegrating tablet Take 1 tablet by mouth every 8 (eight) hours as needed for Nausea and Vomiting (N/V). 10 tablet 0 furosemide 40 mg tablet Take 1 tablet by mouth every morning and evening. 180 tablet 1 KCL 20 mEq tablet Take 1 tablet by mouth daily. 30 tablet 1 magnesium oxide 420 mg Tab Take 400 mg by mouth daily. 30 tablet 1 tramadol HCl (TRAMADOL ORAL) Take 50 mg by mouth. acetaminophen 325 mg tablet Take 2 tablets by mouth every 6 (six) hours as needed for Pain (scale 1-3). 30 tablet 0 nitroglycerin 0.[address] 1 tablet under the tongue every 5 (five) minutes as needed for Chest pain. 1 Bottle 0 clonazePAM 0.25 mg disintegrating tablet Take 1 tablet by mouth 2 (two) times daily as needed for Anxiety. apixaban 5 mg tablet Take 1 tablet by mouth 2 (two) times daily. Indications: atrial fibrillation 180 tablet 3 atorvastatin 80 mg tablet Take 1 tablet by mouth at bedtime. 90 tablet 3 pregabalin (LYRICA) 150 mg capsule Take 1 capsule by mouth daily. 30 capsule 1 SERTraline (ZOLOFT) 50 mg tablet Take 1 tablet by mouth daily. 30 tablet 2 SOCIAL HISTORY Social History Socioeconomic History Marital status: Number of children: 8 Highest education level: 8th grade Occupational History Occupation: retired Tobacco Use Smoking status: Never Smokeless tobacco: Never Substance and Sexual Activity Alcohol use: No Alcohol/week: 0.0 standard drinks of alcohol Drug use: Never Social Determinants of Health Financial Resource Strain: Low Risk (09/04/2022) Overall Financial Resource Strain (CARDIA) Difficulty of Paying Living Expenses: Not hard at all Food Insecurity: No Food Insecurity (09/04/2022) Hunger Vital Sign Worried About Running Out of Food in the Last Year: Never true Ran Out of Food in the Last Year: Never true Transportation Needs: No Transportation Needs (09/04/2022) PRAPARE - Transportation Lack of Transportation (Medical): No Lack of Transportation (Non-Medical): No Physical Activity: Unknown (09/04/2022) Exercise Vital Sign Days of Exercise per Week: Patient declined Minutes of Exercise per Session: Patient declined Social Connections: Unknown (09/04/2022) Social Connection and Isolation Panel [NHANES] Frequency of Communication with Friends and Family: Patient declined Marital Status: Patient declined REVIEW OF SYSTEMS At least 10 systems reviewed, negative except as mentioned in HPI PHYSICAL EXAMINATION Vitals: 12/30/23 0500 12/30/23 0600 12/30/23 0700 12/30/23 0744 BP: 120/69 130/63 99/61 Pulse: 88 86 83 Resp: 16 18 14 16 Temp: 36 ?C (96.8 ?F) TempSrc: Tympanic SpO2: 96% 96% 96% 95% Weight: Height: Constitutional: alert and oriented x 3 (person, place and date/time); no apparent distress, obese ENT: normocephalic atraumatic, supple, no lymphadenopathy, no bruits, no JVD Lungs: clear to auscultation bilaterally Cardiovascular: S1, S2 normal, irregular; no murmurs, rubs or gallops GI: soft; non-tender; + distended; normoactive bowel sounds : not examined Musculoskeletal: Extremities: no clubbing, cyanosis, or edema Skin: no rashes Neuro: no focal deficits LABS - reviewed pertinent labs as below: CBC BMP PT/INR WBC (10*3/?L) Date Value 12/30/2023 7.49 NA (mmol/L) Date Value 12/30/2023 140 No results found for: "PT" PLT (10*3/?L) Date Value 12/30/2023 114 (L) K (mmol/L) Date Value 12/30/2023 3.4 (L) INR (no units) Date Value 09/03/2022 1.2 HGB (g/dL) Date Value 12/30/2023 12.1 BUN (mg/dL) Date Value 12/30/2023 11 HCT (%) Date Value 12/30/2023 36.5 CREATININE (mg/dL) Date Value 12/30/2023 0.91 LIPID PROFILE GLUCOSE (mg/dL) Date Value 12/30/2023 108 CHOL (mg/dL) Date Value 05/24/2022 144 TSH LDL CHOL (mg/dL) Date Value 05/24/2022 60 TSH (mIU/L) Date Value 07/03/2021 1.93 CARDIAC ENZYMES HDL (mg/dL) Date Value 05/24/2022 40 (L) CK (U/L) Date Value 07/02/2021 278 (H) TRIG (mg/dL) Date Value 05/24/2022 222 (H) LFTs No results found for: "CKMB" AST(SGOT) (U/L) Date Value 12/30/2023 102 (H) TROPONIN I (ng/mL) Date Value 12/29/2023 0.013 ALT(SGPT) (U/L) Date Value 03/27/2019 22 ALTv (U/L) Date Value 12/30/2023 31 No results found for: "BNP" IMAGING - reviewed, pertinent results as below: CT chest-pulmonary edema Telemetry-atrial fibrillation with controlled ventricular rate ASSESSMENT/PLAN Principal Problem: Nausea and vomiting, unspecified vomiting type Active Problems: Chest pain Splenic artery aneurysm Morbid obesity with body mass index of 40.0-49.9 CAD (coronary artery disease) HTN (hypertension) Longstanding persistent atrial fibrillation ANNITA (obstructive sleep apnea) NSVT (nonsustained ventricular tachycardia) PAD (peripheral artery disease) Pulmonary hypertension Acute on chronic diastolic congestive heart failure Hypertensive emergency Infrarenal abdominal aortic aneurysm (AAA) without rupture Dissection of abdominal aorta Nausea, vomiting and diarrhea-acute gastroenteritis probably due to spoiled food. Acute on chronic heart failure with preserved ejection fraction-presented with progressive dyspnea, orthopnea, BNP elevation and pulm edema. She was unable to take any cardiac medications due to gastroenteritis. Continue IV Lasix 40 mg twice daily as tolerated. Low salt diet. I/O. Daily weight. Fluid restriction. Keep K > 4 and Mg > 2. Echocardiogram to assess ejection fraction and hemodynamics. Chronic atrial fibrillation-the rate is well-controlled. Continue Coreg and Eliquis. Hypertensive emergency-due to inability to take medications. Currently much better controlled. Continue amlodipine, Coreg, and losartan. CAD-history of PCI stenting. Episodes of chest pain in the last week. Continue to trend troponin. Continue Eliquis. Continue Lipitor and Coreg. Stress sleep apnea-unable to tolerate CPAP. Splenic artery aneurysm-status post stenting. Abdominal aortic aneurysm-small size. Periodic imaging follow-up. Type B aortic dissection-continue blood pressure control. Morbid obesity-recommend diet, exercise and weight loss after acute phase. Thank you for allowing us to participate in the care of your patient. Please feel free to contact us for any questions or if we can be of further assistance. Bartolo Noriega MD, [facility], [place] Canine Service Instructor Trainer, Division of Cardiology [facility] - Health History and Physical Notes Date/Time Note Provider Source 2023-12-29 21:21:15 [facility] Hospitalist Admission H&P Date of Service: 12/29/2023 CHIEF COMPLAINT: Nausea/vomiting/diarrhea and shortness of breath HISTORY OF PRESENT ILLNESS Emil Little is a 83 year old female who presents with intractable nausea vomiting along with diarrhea. Patient been feeling ill for last couple of days she is not really sure exactly what caused her symptoms but she thought it was related to some beans she ate after she had left the beans out overnight. She was having persistent nausea and vomiting. She was not able to take any of her medications. By this morning, she started noticing that she was short of breath. Her blood pressure was elevated and she was not able to keep her medications down. She decided to come into the emergency room for further evaluation. In the emergency room, she was seen by emergency room physician and given IV antiemetics. She had a chest x-ray which revealed pulmonary edema. She was found to have congestive heart failure exacerbation. She decided to come into the emergency room for further evaluation. Patient has a history of cardiac disease along with atrial fibrillation and diabetes. She is having some mild epigastric tenderness, but otherwise her symptoms are improving. She does states she feels much better at this time. However, because of the hypoxemia and the pulmonary edema she was admitted to the hospital for inpatient hospitalization. PAST MEDICAL HISTORY Past Medical History: Diagnosis Date Atrial fibrillation CAD (coronary artery disease) s/p stents Chronic diastolic heart failure Depression Diabetes HTN (hypertension) Myocardial infarction 2014 Sleep apnea Denies CPAP Uterus cancer 1985 PAST SURGICAL HISTORY Past Surgical History: Procedure Laterality Date ARTERIOGRAM N/A 03/12/2017 Surgeon: Malik Miller; Location: [facility] [place] CHOLECYSTECTOMY 80s HYSTERECTOMY 87 VASCULAR STENTING N/A 03/12/2017 Surgeon: Malik Miller; Location: [facility] [place] VENTRAL HERNIORRHAPHY N/A 05/11/2019 Surgeon: Lakeisha Pulido MD; Location: [facility], Located [facility] ALLERGIES Allergies Allergen Reactions Hydrocodone Nausea and/or Vomiting Diflucan [Fluconazole] Unknown - See comments MEDICATIONS Current home medication list reviewed: Current Discharge Medication List STOP taking these medications metoprolol tartrate 25 mg tablet Comments: Reason for Stopping: ondansetron 4 mg disintegrating tablet Comments: Reason for Stopping: furosemide 40 mg tablet Comments: Reason for Stopping: KCL 20 mEq tablet Comments: Reason for Stopping: magnesium oxide 420 mg Tab Comments: Reason for Stopping: tramadol HCl (TRAMADOL ORAL) Comments: Reason for Stopping: acetaminophen 325 mg tablet Comments: Reason for Stopping: nitroglycerin 0.4 mg sublingual tablet Comments: Reason for Stopping: clonazePAM 0.25 mg disintegrating tablet Comments: Reason for Stopping: apixaban 5 mg tablet Comments: Reason for Stopping: atorvastatin 80 mg tablet Comments: Reason for Stopping: pregabalin (LYRICA) 150 mg capsule Comments: Reason for Stopping: SERTraline (ZOLOFT) 50 mg tablet Comments: Reason for Stopping: FAMILY HISTORY Family History Problem Relation Age of Onset [place] (myocardial infarction) Father 3-4 [place] Coronary Heart Disease Son PCI SOCIAL HISTORY Social History Socioeconomic History Marital status: Number of children: 8 Highest education level: 8th grade Occupational History Occupation: retired Tobacco Use Smoking status: Never Smokeless tobacco: Never Substance and Sexual Activity Alcohol use: No Alcohol/week: 0.0 standard drinks of alcohol Drug use: Never Social Determinants of Health Financial Resource Strain: Low Risk (09/04/2022) Overall Financial Resource Strain (CARDIA) Difficulty of Paying Living Expenses: Not hard at all Food Insecurity: No Food Insecurity (09/04/2022) Hunger Vital Sign Worried About Running Out of Food in the Last Year: Never true Ran Out of Food in the Last Year: Never true Transportation Needs: No Transportation Needs (09/04/2022) PRAPARE - Transportation Lack of Transportation (Medical): No Lack of Transportation (Non-Medical): No Physical Activity: Unknown (09/04/2022) Exercise Vital Sign Days of Exercise per Week: Patient declined Minutes of Exercise per Session: Patient declined Social Connections: Unknown (09/04/2022) Social Connection and Isolation Panel [NHANES] Frequency of Communication with Friends and Family: Patient declined Marital Status: Patient declined REVIEW OF SYSTEMS 10 systems negative except per HPI PHYSICAL EXAMINATION BP (!) 147/85 | Pulse 91 | Temp 36.6 ?C (97.8 ?F) (Temporal Artery) | Resp 18 | Ht 1.524 m (5') | Wt 100.5 kg (221 lb 8 oz) | LMP 09/16/1986 (Approximate) | SpO2 91% | BMI 43.26 kg/m? General: No acute distress HEENT: Normal oral mucosa, anicteric sclerae, NCAT Cardiovascular: RRR with systolic ejection murmur II/ Lungs: Basilar crackles bilaterally Abdomen: Soft, NTND Musculoskeletal: No synovitis, normal muscle mass Genitourinary: Normal Skin: No rash, no skin lesions Extremities: No clubbing, no cyanosis, minimal lower extremity edema Neuro: AAOx3, no focal deficits Psych: Normal affect LABS - reviewed pertinent labs as below: CBC BMP PT/INR WBC (10*3/?L) Date Value 12/29/2023 6.00 NA (mmol/L) Date Value 12/29/2023 142 No results found for: "PT" RBC (10*6/?L) Date Value 12/29/2023 4.47 K (mmol/L) Date Value 12/29/2023 3.8 INR (no units) Date Value 09/03/2022 1.2 PLT (10*3/?L) Date Value 12/29/2023 106 (L) CALCIUM (mg/dL) Date Value 12/29/2023 9.6 HGB (g/dL) Date Value 12/29/2023 14.2 CL (mmol/L) Date Value 12/29/2023 108 aPTT HCT (%) Date Value 12/29/2023 43.1 BUN (mg/dL) Date Value 12/29/2023 12 APTT Patient (Seconds) Date Value 09/03/2022 28 CREATININE (mg/dL) Date Value 12/29/2023 0.95 IMAGING - reviewed, pertinent results as below: Hospital Encounter on 12/29/23 CT THORAX W CONTRAST Narrative CT SCAN OF THE THORAX, ABDOMEN, AND PELVIS WITH IV CONTRAST HISTORY: 83 years -old Female with Abdominal pain, acute, nonlocalized abd . Patient presented with diarrhea and dizziness for 2 days. TECHNIQUE: A CT scan of the thorax, abdomen, and pelvis was performed after the administration of intravenous contrast. Coronal and sagittal reformatted images were obtained. COMPARISON: CT abdomen pelvis dated 04/12/2023 FINDINGS: THORAX: Lower neck/thyroid: A 1.8 cm heterogenous nodule is seen in the right thyroid. Multiple subcentimeter thyroid nodules are seen in bilateral thyroid lobes. Lungs/Pleura: Normal lung volumes. Diffuse patchy groundglass opacities and interlobular septal thickening is seen. Diffuse bronchial wall thickening. Trace pleural effusions. No pneumothorax. Central airway: The central airways are clear. Thoracic aorta and great vessels: Severe calcifications of the aorta. Pulmonary arteries: Borderline pulmonary trunk measures 3 cm. The main pulmonary arteries measures 3 cm on the right and 2.9 cm on the left. Mitral annulus calcifications. Heart and pericardium: Severe coronary artery calcification. Moderate biatrial cardiomegaly. Lymph nodes: Enlarged pretracheal lymph node measuring up to 1.4 cm. Mediastinum: Unremarkable. Thoracic spine and chest wall: Age indeterminate fractures of the lateral left eighth and ninth ribs, likely subacute/acute. Chronic fractures of the right seventh and eighth ribs. Multilevel anterior bridging osteophytes (DISH type). ABDOMEN/PELVIS: LIVER: No focal lesions. No biliary ductal dilation. GALLBLADDER: Post cholecystectomy changes. Mild dilatation of the CBD up to 1 cm and intrahepatic ducts, likely related to reservoir phenomenon. SPLEEN: Mild splenomegaly with spleen measuring up to 13.2 cm in AP length.. No punctate calcified granulomas. PANCREAS: No masses or ductal dilatation. ADRENAL GLANDS: No adrenal nodules. KIDNEYS: Multifocal scarring of bilateral kidneys. Punctate nonobstructing stone measuring up to 4 mm on the right. Stable renal cysts. No hydronephrosis. Trace perinephric fat stranding, nonspecific. PERITONEUM AND RETROPERITONEUM: No free air or fluid. LYMPH NODES: No enlarged lymphadenopathy. GI TRACT: No dilatation. Colonic diverticulosis without diverticulitis. 2 focal short segment thickening of the proximal descending colon (18:43). Normal appendix. PELVIS: Mild bladder wall thickening. VESSELS: Fusiform aneurysm of the infrarenal aorta measuring up to 3.3 cm in diameter, spanning 6 cm in length. 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 Severe atherosclerotic calcifications. Perihepatic varices. Stable 2.1 cm calcified splenic aneurysm from 2021. A splenic stent is suspected. BONES AND SOFT TISSUES: Moderate degenerative changes of the thoracolumbar spine. Generalized osteopenia. Impression 1. Diffuse pulmonary edema. Bronchial wall thickening can be seen with chronic bronchitis 2. Age indeterminate fractures of the left lateral eighth and ninth ribs. Recommend correlation with point tenderness. 3. Focal thickening of the proximal descending colon may represent physiologic colonic underdistention, stricture from prior bouts of diverticulitis or neoplasm, benign or malignant. Follow-up as per clinician. 4. Mild bladder wall thickening is nonspecific and may be seen in physiologic underdistention or cystitis. 5. Predominantly biatrial cardiomegaly. Dilated pulmonary trunk and main pulmonary arteries. Findings are nonspecific but may be seen in elevated pulmonary pressure. 6. 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 Preliminary Report Dictated by Resident: Osvaldo Paulino MD., have reviewed this study and agree with the above report. CT ABDOMEN PELVIS W CONTRAST Narrative CT SCAN OF THE THORAX, ABDOMEN, AND PELVIS WITH IV CONTRAST HISTORY: 83 years -old Female with Abdominal pain, acute, nonlocalized abd . Patient presented with diarrhea and dizziness for 2 days. TECHNIQUE: A CT scan of the thorax, abdomen, and pelvis was performed after the administration of intravenous contrast. Coronal and sagittal reformatted images were obtained. COMPARISON: CT abdomen pelvis dated 04/12/2023 FINDINGS: THORAX: Lower neck/thyroid: A 1.8 cm heterogenous nodule is seen in the right thyroid. Multiple subcentimeter thyroid nodules are seen in bilateral thyroid lobes. Lungs/Pleura: Normal lung volumes. Diffuse patchy groundglass opacities and interlobular septal thickening is seen. Diffuse bronchial wall thickening. Trace pleural effusions. No pneumothorax. Central airway: The central airways are clear. Thoracic aorta and great vessels: Severe calcifications of the aorta. Pulmonary arteries: Borderline pulmonary trunk measures 3 cm. The main pulmonary arteries measures 3 cm on the right and 2.9 cm on the left. Mitral annulus calcifications. Heart and pericardium: Severe coronary artery calcification. Moderate biatrial cardiomegaly. Lymph nodes: Enlarged pretracheal lymph node measuring up to 1.4 cm. Mediastinum: Unremarkable. Thoracic spine and chest wall: Age indeterminate fractures of the lateral left eighth and ninth ribs, likely subacute/acute. Chronic fractures of the right seventh and eighth ribs. Multilevel anterior bridging osteophytes (DISH type). ABDOMEN/PELVIS: LIVER: No focal lesions. No biliary ductal dilation. GALLBLADDER: Post cholecystectomy changes. Mild dilatation of the CBD up to 1 cm and intrahepatic ducts, likely related to reservoir phenomenon. SPLEEN: Mild splenomegaly with spleen measuring up to 13.2 cm in AP length.. No punctate calcified granulomas. PANCREAS: No masses or ductal dilatation. ADRENAL GLANDS: No adrenal nodules. KIDNEYS: Multifocal scarring of bilateral kidneys. Punctate nonobstructing stone measuring up to 4 mm on the right. Stable renal cysts. No hydronephrosis. Trace perinephric fat stranding, nonspecific. PERITONEUM AND RETROPERITONEUM: No free air or fluid. LYMPH NODES: No enlarged lymphadenopathy. GI TRACT: No dilatation. Colonic diverticulosis without diverticulitis. 2 focal short segment thickening of the proximal descending colon (18:43). Normal appendix. PELVIS: Mild bladder wall thickening. VESSELS: Fusiform aneurysm of the infrarenal aorta measuring up to 3.3 cm in diameter, spanning 6 cm in length. 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 Severe atherosclerotic calcifications. Perihepatic varices. Stable 2.1 cm calcified splenic aneurysm from 2021. A splenic stent is suspected. BONES AND SOFT TISSUES: Moderate degenerative changes of the thoracolumbar spine. Generalized osteopenia. Impression 1. Diffuse pulmonary edema. Bronchial wall thickening can be seen with chronic bronchitis 2. Age indeterminate fractures of the left lateral eighth and ninth ribs. Recommend correlation with point tenderness. 3. Focal thickening of the proximal descending colon may represent physiologic colonic underdistention, stricture from prior bouts of diverticulitis or neoplasm, benign or malignant. Follow-up as per clinician. 4. Mild bladder wall thickening is nonspecific and may be seen in physiologic underdistention or cystitis. 5. Predominantly biatrial cardiomegaly. Dilated pulmonary trunk and main pulmonary arteries. Findings are nonspecific but may be seen in elevated pulmonary pressure. 6. 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 Preliminary Report Dictated by Resident: Osvaldo Paulino MD., have reviewed this study and agree with the above report. ASSESSMENT: 1. Acute CHF exacerbation; HFpEF secondary to uncontrolled hypertension 2. Intractable nausea and vomiting 3. History of coronary artery disease status post stent placement 4. History of type 2 diabetes 5. History of major depressive disorder 6. History of uterine cancer 7. History of obstructive sleep apnea 8. History of atrial fibrillation PLAN: 1. Acute CHF exacerbation/flash pulmonary edema secondary to uncontrolled hypertension; strict blood pressure control. Patient was diuresed. Patient respiratory status has improved. Blood pressure was improved. Patient clinical status stable. Repeat echocardiogram. Cardiology consultation pending. 2. Intractable nausea and vomiting along with diarrhea; this is secondary to viral gastroenteritis. Continue with antiemetics as needed. 3. History of coronary artery disease status post stent placement; continue with antiplatelet therapy and statin therapy. 4. History of type 2 diabetes; strict blood sugar control 5. History of atrial fibrillation; continue with medication for rate control along with anticoagulation. Continue with metoprolol and Eliquis. 6. History of obstructive sleep apnea; CPAP as needed 7. History of uterine cancer; in remission 8. History of major depressive disorder; continue with antidepressant 9. GI DVT prophylaxis DVT prophylaxis: enoxaparin Stress ulcer prophylaxis: pantoprazole Code status: FULL Advanced Care Planning (Z71.89) Above assessment and plan discussed at length with patient, patient expressed full understanding. Questions and concerned addressed. Surrogate decision maker: NO Level of care expected after discharge: HOME Time spent: 3 minutes discussing the advanced care plan Smoking Cessation: (Z71.6) Tobacco user?: NO Patient will require inpatient stay of 2 midnights or more given high risk of morbidity and mortality [place] GUITAR TECHNICIAN was verified during stay Gilson Fortune MD T [facility] [email or web address] Notes Date/Time Note Provider Source 2025-05-03 17:04:40 Images from the original note were not included. ANA MARIA: 12/16/24 NOV: 06/17/[address] Noriega's note regarding Jardiance: Refill request for Jardiance 10 mg received. Refill sent to pharmacy of choice. Patient is compliant as per [facility] Cardiology Protocol. [facility] [email or web address] 2025-05-03 07:45:26 Images from the original note were not included. Edelmiratank Lino [facility] 2025-01-14 16:51:14 Per ANA MARIA 12/16/24 AFib--EKG and Holter showed controlled rate. She is feeling well. Will continue current rate control--metoprolol 12.5 mg BID. CHADSVASc score 6. Continue Eliquis. Discussed Watchman. She is not interested. Due to previous nose bleeding while on DAPT, we stopped plavix. Hemoglobin 12.6 04/07/2024. EKG--05/23/2022--reviewed and discussed with patient Afib, VR 77 bpm, septal infarct HFpEF--Lasix 40 mg twice daily. Added spironolactone 25 mg daily. Added Jardiance 10 mg daily. BMP today. Discussed low salt diet. Discussed HF monitoring--daily weight. Call for adjustment. ECHO 03/10/2021--reviewed and discussed with patient Left ventricular systolic function is normal. Ejection Fraction = 60-65%. Diastolic dysfunction. The left atrium is mildly dilated. There is moderate concentric left ventricular hypertrophy. Right ventricular systolic pressure is elevated at 40-45 mmHg. CAD--s/p PCI. No angina. Has not had nose bleeding. We discontinued Plavix 75 mg daily as above. Stopped ASA due to previous nose bleeding while on DAPT. LDL 67 on 07/03/2021. LDL 60 on May 24, 2022. Optimal. Will continue lipitor at 80 mg daily. Requested Prescriptions Signed Prescriptions Disp Refills furosemide 40 mg tablet 180 tablet 3 Sig: Take 1 tablet by mouth every morning and evening. Authorizing Provider: SEBASTIÁN WERNERHAndreina Ordering User: SOPHIA HASSAN metoprolol tartrate 25 mg tablet 90 tablet 3 Sig: Take 0.5 tablets by mouth in the morning and 0.5 tablets in the evening. Authorizing Provider: SEBASTIÁN WERNER.HAndreina Ordering User: SOPHIA HASSAN atorvastatin 40 mg tablet 90 tablet 3 Sig: Take 1 tablet by mouth at bedtime. Authorizing Provider: SEBASTIÁN WERNER.HAndreina Ordering User: SOPHIA HASSAN apixaban 5 mg tablet 180 tablet 3 Sig: Take 1 tablet by mouth in the morning and 1 tablet in the evening. Indications: atrial fibrillation Authorizing Provider: SEBASTIÁN WERNER Ordering User: SOPHIA HASSAN Sophia Hassan RN [facility] 2025-01-12 14:17:55 Emil Little is a 84 year old female Pts daughter requesting refills [id number] - [place], [place] - [address] [facility] [address] [facility] [id number] [facility] 2024-12-18 08:49:19 3rd attempt to contact patient with results/recommendations. LVM for patient to return call to [phone] at Maria Luisa's number as patient's number is unable to receive VM. Letter created and sent with results. Will close out encounter. Sophia Hassan RN [facility] 2024-12-17 14:57:36 2nd attempt to contact patient with results/recommendations. Attempted to contact Claire Hale lvm with callback number. [facility] 2024-12-17 10:36:19 Images from the original note were not included. Attempted to contact patient with results/recommendations. Unable to LVM at patient's number. LVM at patient's daughter, Maria Luisa's number to return call to [phone]. Bartolo Noriega MD P Cardiology Nurse LDL is suboptimal. Add zetia 10 mg daily. T [facility] 2024-12-16 11:00:00 Images from the original note were not included. Venipuncture collection performed by clean technique on the right anticubitus. Total of 1 attempts were made. Slight pressure and a bandage/dressing were applied to the site(s). The patient experienced no complications. The following specimens were processed according to instructions and sent to [facility] laboratories per lab order on 12/16/2024: LT BLUE 1 SST 1 RED LAV 1 PPT DK GREEN (LiHep) DK GREEN (SodH) NGUYEN DK BLUE (K2) DK BLUE (S) ACD Blood Culture NIPT/NTD T [facility] 2024-11-15 15:52:46 Access Center: [facility] Open Encounter Maintenance Nurse Note: RN closing encounter in [facility] r/t encounter created without notes, details, orders, future appointments, or clinical action items to be completed. Marilyn Neil RN [facility] Access Center Triage Nurse R EQUIPMENT COMMANDING OFFICER Marilyn Neil RN [facility] 2024-11-03 14:53:57 Pts son this call was in error. Dunn RN [facility] 2024-11-03 12:22:47 Emil Little is a 84 year old female Pts son n law is calling saying they are at the pharmacy now trying to picker and packer rx metoprolol but they are needing a PA Was able to warm transfer Busby [facility] 2024-10-13 09:19:17 Refill requested for Requested Prescriptions Pending Prescriptions Disp Refills furosemide 40 mg tablet Sig: Take 1 tablet by mouth in the morning. ANA MARIA 06/18/24, Labs 06/18/24 (reviewed by Dr. Noriega) R EQUIPMENT COMMANDING OFFICER Sarah H[facility]ado [facility] [facility] 2024-07-16 10:09:07 Refill request for apixaban received. Refill sent to pharmacy of choice. Patient is compliant as per [facility] Cardiology Protocol. [facility] 2024-07-15 11:33:59 Emil Little is a 84 year old female Pt requesting refill of apixaban 5 mg tablet. [id number] AT [facility] [address] [facility] 2024-07-10 15:03:06 Refill requested for Requested Prescriptions Pending Prescriptions Disp Refills empagliflozin 10 mg tablet 31 tablet 0 Sig: Take 1 tablet by mouth in the morning. ANA MARIA with Dr. Noriega 06/18/2024 Labs 06/18/[address] Noriega. Sarah Hurtado RN [facility] 2024-06-19 09:42:32 Patient notified of results. She verbalized understanding of results/recommendations via teach back. No further questions or concerns at this time. No active standing orders for INR. Bartolo Noriega MD 06/18/2024 7:07 PM CDT Labs are stable. No changes to make. Sarah Hurtado RN [facility] 2024-06-19 08:18:46 Attempted to contact patient with results/recommendations. LVM for patient to return call to [phone]. [facility] 2024-06-18 16:47:08 Images from the original note were not included. Attempted to contact pt by phone na. Attempted to call [facility] visiting nurses to see if they draw her labs, na. Will attempt again tomorrow am. Bartolo Noriega MD P Cardiology Nurse She is not on warfarin anymore. Please discontinue INR standing order. Connie Dunn RN [facility] 2024-06-18 13:30:00 Images from the original note were not included. Venipuncture collection performed by clean technique on the left anticubitus. Total of 2 attempts were made. Slight pressure and a bandage/dressing were applied to the site(s). The patient experienced no complications. The following specimens were processed according to instructions and sent to [facility] laboratories per lab order on 06/18/2024 : LT BLUE 1 SST 1 RED LAV PPT DK GREEN (LiHep) DK GREEN (SodH) NGUYEN DK BLUE (K2) DK BLUE (S) ACD Blood Culture NIPT/NTD [facility] 2024-06-01 15:33:24 Faxed back to Visiting Nurses Sarah Hurtado RN [facility] 2024-06-01 13:06:31 Order to physical therapy eval received from [facility] visiting nurse. Placed in Dr. Noriega's folder Connie Dunn RN [facility] 2024-06-01 09:03:51 Pat with [facility] visiting nurses will be faxing new orders for physical therapy for Dr. Noriega to sign. Connie Dunn RN [facility] 2024-05-29 16:01:21 Attempted to call pat with [facility] visiting nurses back. The office is now closed. Will try again on Saturday. [facility] 2024-05-29 13:41:41 Emil Little is a 84 year old female Pat w/ [facility] calling to check status of orders for pt to start Physical Therapy again. Pat states that order was faxed over on 05/07/24. The order is dated 04/15/24. Please advise Octavio Mendoza [facility] 2024-04-24 11:14:59 Spoke with patient's daughter and notified her of Dr. Noriega's recommendations. She verbalized understanding and states she has been keeping track of her mom's weight. Will notify the clinic of any changes. Left another voicemail for patient and advised her to return call to clinic if she has any questions. Sarah Hurtado RN [facility] 2024-04-24 08:54:01 Attempted to contact patient with results/recommendations. LVM for patient to return call to [phone]. Nicole Burr MA [facility] 2024-04-23 13:13:21 Reviewed labs. Will not adjust meds based on the labs, unless patient is having volume overload such as worsening edema, dyspnea, weight gain etc. [facility] 2024-04-23 11:21:54 Received labs from [email or web address], placed in Dr. Noriega's folder for review . Thank you. Nicole Burr MA [facility] 2024-04-22 15:43:24 Spoke with Lily nurse practitioner with Dr. Perez's office. She states she saw the patient yesterday for a hospital follow up. She yasmin labs and the labs showed her kidney function was still decreased and her BNP had gone up to 1059. She wants to know if she should adjust patient's medications or if Dr. Noriega would? She states that patient reported during visit that she was taking lasix 40 mg twice daily. I did contact patient's daughter who does patient's medications and she verified that patient has decreased lasix to 40 mg daily and stopped potassium. Lily is faxing patient's blood work results for Dr. Noriega to review. Sarah Hurtado RN [facility] 2024-04-22 15:20:41 Emil Little is a 83 year old female PT PCP calling in to speak to [facility] nurse about discharge orders Sent teams and encounter. Please advise Rachell Gage [facility] 2024-04-16 16:28:31 Patient's daughter notified of results. She verbalized understanding of results/recommendations via teach back. No further questions or concerns at this time. [facility] 2024-04-16 15:47:48 Patient's home health nurse Stefanie was notified that Dr. Noriega has given patient the ok to proceed with physical therapy. Will fax to . Sarah Hurtado RN [facility] 2024-04-16 13:56:02 yes T [facility] 2024-04-16 13:55:32 Reduce to 40 mg daily T [facility] 2024-04-16 13:28:16 Patient's daughter notified of results. She verbalized understanding of results/recommendations via teach back. She states she does her mom's pill box and states she did not increase her lasix to 80 mg BID, she didn't know she was supposed to. Patient has only been taking 40 mg BID. Will route to Dr. Noriega to advise. She did confirm her mom is taking Eliquis, not warfarin. T [facility] 2024-04-16 10:31:06 Emil Little is a 83 year old female. Pt returning [employer] call. Please advise. Telly Rosa [facility] 2024-04-16 08:44:10 Images from the original note were not included. Spoke to the patient she stated to call her daughter. Attempted to contact patient with results/recommendations. LVM for patient to return call to [phone]. Bartolo Noriega MD P Cardiology Nurse I think she is on Eliquis. Plz verify if she is on warfarin or Eliquis. Bartolo Noriega MD P Cardiology Nurse BNP is much improved. BUN and creatinine are elevated. Reduce Lasix from 80 mg twice daily to 40 mg twice daily. Stop potassium chloride. Nicole Burr MA [facility] 2024-04-15 13:15:40 [facility] is calling needings orders for pt and daughter is stating pt is not having shortness of breath. Home health wants to know if she is safe to do PT Please advise [facility] [phone] Duglas Ervin [facility] 2024-04-15 11:45:00 Images from the original note were not included. Venipuncture collection performed by clean technique on the both anticubitus. Total of 2 attempts were made. Slight pressure and a bandage/dressing were applied to the site(s). The patient experienced no complications. The following specimens were processed according to instructions and sent to [facility] laboratories per lab order on 04/15/2024: LT BLUE 1 SST 1 RED LAV PPT DK GREEN (LiHep) DK GREEN (SodH) NGUYEN DK BLUE (K2) DK BLUE (S) ACD Blood Culture NIPT/NTD [facility] 2024-04-13 13:21:42 Notified daughter orders are in EPIC for N-Terminal Pro-BNP and BMP and can go to lab downstairs or lab in the hospital Verbal understanding. Nancy Cano MA [facility] 2024-04-13 11:38:37 Emil Little is a 83 year old female Pts daughter is calling asking if the pt needs to fast before lab tests. Pt is asking the total number of tests the pt needs and which lab she needs to go to. Please advise. Amparo Red [facility] 2024-04-08 15:12:26 Spironolactone refill sent to [facility] #[id number] - [place], [place] - [address] AT [facility] [address] [facility] 2024-04-07 15:27:06 Pt given printed and verbal discharge instructions regarding shortness of breath, CHF Pt verbalized understanding of instructions, pt awake alert oriented, resp reg unlabored, skin w/d, color appropriate for race, moves all ext well,pt encouraged to follow up with pcp Advised to seek medical attention for new/prolonged/worsening of symptoms No adverse reaction to meds given in ER noted upon discharge PIV d'cd, dressing to site, catheter in tact. Awake, alert oriented, resp reg unlabored, skin w/d, pt leaving via wheelchair pushed by family, in no apparent distress Madison Murdock RN [facility] 2024-04-07 11:30:57 Patient with daughter from home. Patient reports getting short of breath on and off since , worse today with dizziness. She uses oxygen as needed. She arrived on small portable on 2 L/min with SPO2 sat of 81%. Taken to room and placed onour wall oxygen at 5 L/min via NC. 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 She states her family said her oxygen sats were in 60s but she felt fine. Does not have inhalers at home, never smoker, no chest pains. She states she feels fine and would like to go home.Reports compliance with all meds. Past Medical History/Immunizations: Past Medical History: Diagnosis Date Atrial fibrillation CAD (coronary artery disease) s/p stents Chronic diastolic heart failure Depression Diabetes HTN (hypertension) Myocardial infarction 2014 Sleep apnea Denies CPAP Uterus cancer 1984 Tetanus received in last 5 years: Unknown Childhood immunizations: Up-to-date Allergies: Allergies Allergen Reactions Hydrocodone Nausea and/or Vomiting Diflucan [Fluconazole] Unknown - See comments Past Social History: Tobacco Use Never smoked or used smokeless tobacco. Alcohol Use No. Drug Use Never. Past Surgical History: Past Surgical History: Procedure Laterality Date ARTERIOGRAM N/A 03/12/2017 Surgeon: Malik Miller; Location: [facility] [place] CHOLECYSTECTOMY 80s HYSTERECTOMY 87 VASCULAR STENTING N/A 03/12/2017 Surgeon: Malik Miller; Location: [facility] [place] VENTRAL HERNIORRHAPHY N/A 05/11/2019 Surgeon: Lakeisha Pulido MD; Location: [facility] Review of Systems: Review of Systems Constitutional: Negative for activity change, diaphoresis, fatigue, fever and weight gain. HENT: Positive for rhinorrhea. Negative for congestion, ear pain, sore throat, tinnitus and trouble swallowing. Eyes: Negative for discharge and visual disturbance. Respiratory: Positive for shortness of breath. Negative for cough and chest tightness. Breasts: Negative for pain. Cardiovascular: Negative for chest pain and palpitations. Gastrointestinal: Negative for abdominal pain, nausea and vomiting. Genitourinary: Negative for dysuria, hematuria and difficulty urinating. Musculoskeletal: Negative for joint swelling. Skin: Negative for rash and wound. Neurological: Negative for dizziness and headaches. Psychiatric/Behavioral: Negative for agitation and confusion. The patient is not nervous/anxious. Hematological: Does not bruise/bleed easily. Endocrine: Negative for weight gain. Physical Exam: ED Triage Vitals Weight 04/07/24 1132 99.8 kg (220 lb) Actual or estimated -- Height 04/07/24 1132 1.524 m (5') BP 04/07/24 1132 (!) 152/85 Pulse 04/07/24 1132 96 Resp 04/07/24 1132 20 Temp 04/07/24 1132 36.6 ?C (97.9 ?F) Temp source 04/07/24 1132 Oral SpO2 04/07/24 1124 (!) 81 % Measured on 04/07/24 1124 On oxygen Physical Exam Vitals reviewed. Constitutional: Appearance: She is well-developed. She is obese. HENT: Head: Normocephalic and atraumatic. Eyes: Conjunctiva/sclera: Conjunctivae normal. Cardiovascular: Rate and Rhythm: Normal rate and regular rhythm. Heart sounds: Normal heart sounds. No murmur heard. Pulmonary: Effort: Pulmonary effort is normal. Breath sounds: Normal breath sounds. No stridor. No wheezing or rhonchi. Comments: Patient keeps in 90s on 1L of nasal cannula When turned off sats do go up and down but will dip into 89 or 88 especially when talking Abdominal: General: Bowel sounds are normal. Palpations: Abdomen is soft. Tenderness: There is no abdominal tenderness. Musculoskeletal: General: Normal range of motion. Cervical back: Neck supple. Skin: General: Skin is warm and dry. Capillary Refill: Capillary refill takes less than 2 seconds. Neurological: Mental Status: She is alert and oriented to person, place, and time. Cranial Nerves: No cranial nerve deficit. Psychiatric: Behavior: Behavior normal. Radiology: XR CHEST 2 VW Final Result PROCEDURE: XR CHEST 2 VW 04/07/2024 12:59 PM CLINICAL INDICATION: sob COMPARISON: Radiograph of 08/15/2021 TECHNIQUE: PA and lateral views of the chest FINDINGS: The lungs are well-expanded. Hazy opacification of jude, vascular congestion and increased interstitial marking are noted. Blunting of the left costophrenic angle secondary to fat and and elevated hemidiaphragm limits evaluation of pleural effusion. No right pleural effusion. No pneumothorax. The cardiac size is enlarged and is stable. No aggressive osseous lesion. IMPRESSION Very megaly and interstitial pulmonary edema. Lab Results: Lab Results N-TERMINAL PRO-BNP - Abnormal Result Value Ref Range NT-proBNP 2,230 (*) <=125 pg/mL BASIC METABOLIC PANEL (NA, K, CL, CO2, GLUCOSE, BUN, CREATININE, CA) - Abnormal NA 142 135 - 145 mmol/L K 3.5 3.5 - 5.0 mmol/L CL 96 (*) 98 - 108 mmol/L CO2 TOTAL 37 (*) 23 - 31 mmol/L AGAP 9 2 - 16 BUN 14 7 - 23 mg/dL GLUCOSE 125 (*) 70 - 110 mg/dL CREATININE 1.23 (*) 0.50 - 1.04 mg/dL CALCIUM 9.1 8.6 - 10.6 mg/dL eGFR 44.2 mL/min/1.73m2 CBC WITH DIFF - Abnormal WBC 5.03 4.30 - 11.10 10*3/?L RBC 3.90 (*) 3.93 - 5.25 10*6/?L HGB 12.6 11.6 - 15.0 g/dL HCT 39.2 35.7 - 45.2 % MCV 100.5 (*) 80.6 - 95.5 fL MCH 32.3 25.9 - 32.8 pg MCHC 32.1 31.6 - 35.1 g/dL RDW-SD 57.9 (*) 39.0 - 49.9 fL RDW-CV 15.8 (*) 12.0 - 15.5 % PLT 176 166 - 358 10*3/?L MPV 10.2 9.5 - 12.9 fL NRBC/100 WBC 0.0 0.0 - 10.0 /100 WBCs NRBC x10 3 <0.01 10*3/?L GRAN MAT (NEUT) % 59.0 % IMM GRAN % 0.20 % LYMPH % 30.6 % MONO % 8.2 % EOS % 1.4 % BASO % 0.6 % GRAN MAT x10 3 (ANC) 2.97 1.88 - 7.09 10*3/uL IMM GRAN x10 3 <0.03 0.00 - 0.06 10*3/uL LYMPH x10 3 1.54 1.32 - 3.29 10*3/uL MONO x10 3 0.41 0.33 - 0.92 10*3/uL EOS x10 3 0.07 0.03 - 0.39 10*3/uL BASO x10 3 0.03 0.01 - 0.07 10*3/uL TROPONIN I - Normal TROPONIN I <0.012 <=0.034 ng/mL INFLUENZA A/B RSV COVID NAAT - Normal Influenza A NAAT Negative Negative Influenza B NAAT Negative Negative RSV by PCR Negative Negative SARS-CoV-2 NAAT Negative Negative EKG: If EKG completed, see Procedure Note. Orders and Treatments: Orders Placed This Encounter Procedures XR CHEST 2 VW N-Terminal Pro-Bnp Basic Metabolic Panel (NA, K, CL, CO2, GLUCOSE, BUN, CREATININE, CA) Cbc with Diff Troponin I Influenza A B RSV COVID NAAT Lab Only COVID Interpretation Orders Placed This Encounter Medications furosemide (LASIX) injection 20 mg First Provider Eval: ED Events Date/Time Event User Comments 04/07/24 1136 Medical Screening Begins LUPE BHAKTA -- 04/07/24 1136 First Provider Evaluation LUPE BHAKTA -- ED COURSE Diagnosis/Impression as of 04/07/24 1515 SOB (shortness of breath) Hypoxic Congestive heart failure, unspecified HF chronicity, unspecified heart failure type Procedures: Procedures MDM: Medical Decision Making Patient labs unremarkable other than bnp 1999 very similar to prevous Cr is improving Given lasix 20mg IV Flu and covid and rsv all negative Trop is normal CXR shows only interstitial edema very mild especially when compared with previous Given she is maintaining on her home dose and feels well No emergency condition identified Discharged with recommendation to f/u with her doctors soon or return if worsens. Problems Addressed: Congestive heart failure, unspecified HF chronicity, unspecified heart failure type: chronic illness or injury Hypoxic: self-limited or minor problem SOB (shortness of breath): self-limited or minor problem Amount and/or Complexity of Data Reviewed Independent Historian: caregiver Details: Daughter and son External Data Reviewed: radiology. Details: Previous cxr and CT chest shows pulm edema Labs: ordered. Decision-making details documented in ED Course. Radiology: ordered. Decision-making details documented in ED Course. ECG/medicine tests: ordered and independent interpretation performed. Decision-making details documented in ED Course. Details: A fib rate of 69, no RVR and no ST elevation Risk Prescription drug management. Flowsheet Documentation: Scoring Tools: No data recorded PERC SCORE: 2 Disposition/Condition: ED Disposition ED Disposition Disch - Home Condition Stable Comment -- Discharge Medications: Patient's Medications START taking these medications No medications on file CONTINUE taking these medications which have NOT CHANGED ACETAMINOPHEN 325 MG TABLET Take 2 tablets by mouth every 6 (six) hours as needed for Pain (scale 1-3). APIXABAN 5 MG TABLET Take 1 tablet by mouth in the morning and 1 tablet in the evening. Indications: atrial fibrillation ATORVASTATIN 40 MG TABLET Take 1 tablet by mouth at bedtime. CLONAZEPAM 0.25 MG DISINTEGRATING TABLET Take 1 tablet by mouth 2 (two) times daily as needed for Anxiety. FUROSEMIDE 40 MG TABLET Take 1 tablet by mouth every morning and evening. KCL 10 MEQ TABLET Take 1 tablet by mouth in the morning. METOPROLOL TARTRATE 25 MG TABLET Take 0.5 tablets by mouth in the morning and 0.5 tablets in the evening. NITROGLYCERIN 0.[address] 1 tablet under the tongue every 5 (five) minutes as needed for Chest pain. PREGABALIN (LYRICA) 150 MG CAPSULE Take 1 capsule by mouth daily. SERTRALINE (ZOLOFT) 50 MG TABLET Take 1 tablet by mouth daily. TRAMADOL HCL (TRAMADOL ORAL) Take 50 mg by mouth. START taking Modified Medications as Prescribed No medications on file STOP taking these medications No medications on file Follow-up: Contact information for follow-up Esha Ramirez Specialty: LOG WASHER-NURSE PRACTITIONER Relationship: PCP - General [address] [facility] [address] [facility] [id number] Electronically signed by: Jaylin Easley DO 04/07/24 1515 [facility] 2024-01-21 09:54:00 New insurance was verified and Eliquis has been filled and is in the patient's possession Sammi Song RN [facility] 2024-01-15 10:28:54 Spoke with pharmacy. They tried to run the Rx again and now it is showing insurance information is invalid. They will contact patient to obtain new pharmacy insurance card numbers and will re run the Eliquis. IF still needing a PA will fax another request to the clinic. Sarah Hurtado RN [facility] 2024-01-15 08:38:42 Tried to call number provided by pharmacy to initiate a PA. However, stating that patient's insurance is no longer active. Will call pharmacy once open to ensure they have the correct insurance. [facility] 2024-01-15 07:32:24 Images from the original note were not included. Hazel Jameson [facility] 2024-01-14 16:35:41 Copied from [facility] #[id number]. Topic: Clinical - Order >> Jan 14, 2024 4:34 PM Patient Etymology Teacher wrote: Emil Little is a 83 year old female Daughter calling to notify the clinic that Dr Noriega needs to sign off on the eliquis for a prior auth Ins: [employer] Ph [id number] Please advise Marija Busby [facility] 2024-01-13 17:04:08 Eliquis 5 mg BID. Should hold warfarin for 3 days. Then start Eliquis. [facility] 2024-01-13 16:51:17 Spoke with daughter, patient is able to afford the Eliquis and daughter wishes to reinstate it. Notified to continue the Warfarin until restarting Eliquis Route to Dr Noriega for advice [facility] 2024-01-13 12:56:22 Patients daughter would like to know why patient was switched from Eliquis to Warfarin. Please advise. Hazel Jameson [facility] 2024-01-10 13:24:12 Notified patient's daughter Maria Luisa (Per patient's request) : Progress Notes Bartolo Noriega MD (STAFF) IM-CARDIOVASCULAR DISEASE Reason for anticoagulation with Coumadin: PAF Home dose of Coumadin: Currently on Coumadin 5 mg QHS Goal INR 2-3. INR monitoring: Via [facility] lab INR is 3.8--01/10/2024 Hold warfarin for 3 days. Then reduce to 5 mg M/W/F/Sun and 2.5 mg T/T/Sat. Patient to repeat INR around 10 days. Results informed via staff. Patient daughter Maria Luisa verbal understanding and had no questions at this time. Nancy Cano MA [facility] 2024-01-10 12:56:44 Patient is a client of [facility] in [place]. Will keep with same DME for home INR monitoring. Will enroll via [place]. Please follow up with them for status updates. [facility] [phone] T [facility] 2024-01-10 11:00:00 Images from the original note were not included. Venipuncture collection performed by clean technique on the left anticubitus. Total of 1 attempts were made. Slight pressure and a bandage/dressing were applied to the site(s). The patient experienced no complications. The following specimens were processed according to instructions and sent to [facility] laboratories per lab order on 01/10/2024 : LT BLUE 1 SST RED LAV PPT DK GREEN (LiHep) DK GREEN (SodH) NGUYEN DK BLUE (K2) DK BLUE (S) ACD Blood Culture NIPT/NTD T [facility] 2024-01-09 10:42:38 PSS rescheduled. T [facility] 2024-01-08 16:19:54 Patient missed appt time and is calling to get rescheduled. Is there any other day we can open Dr Noriega's 4pm slot for this pt or schedule to next available? Thank you. [facility] 2024-01-07 13:38:30 Routed to for MAR review. [facility] 2024-01-07 13:32:34 Patient has been scheduled thank you all. Raina [facility] 2024-01-07 13:20:06 Copied from [facility] #[id number]. Topic: Clinical - Medical Advice >> Jan 07, 2024 1:19 PM Patient Etymology Teacher wrote: Emil Little is a 83 year old female Pt daughter calling and wants to know if pt should be taking warfarin 5 mg tablet (COUMADIN) and apixaban (ELIQUIS) Pt EC also asking about labs; if patient should be doing labs every week in [place]. [phone] Nikki Caon [facility] 2024-01-07 12:18:38 yes T [facility] 2024-01-07 09:48:20 All OB slots are taken for the 1 week follow up and days after, can we see if Dr Noriega is OK to open up the 4pm slot on tomorrow the ? Please advise, thank you. [facility] 2024-01-07 09:20:15 Routed to [facility] for booking. [facility] 2024-01-06 16:21:59 Copied from [facility] #[id number]. Topic: Customer Service - Missed Call from Provider >> Jan 06, 2024 4:20 PM Patient Etymology Teacher wrote: Emil Little is a 83 year old female Pts daughter calling back saying the phone got disconnected before. I let her know we were waiting on the dr to respond. She said to please call her instead of her mother. Marija Busby [facility] 2024-01-06 16:21:00 OB with me around 1 wk after discharge [facility] 2024-01-06 16:16:46 Will route to MD. Hospital follow up appt is when most often discussed. But not scheduled til 5.13.24 [facility] 2024-01-06 15:51:50 Copied from [facility] #[id number]. Topic: Clinical - Medical Advice >> Jan 06, 2024 3:50 PM Patient Etymology Teacher wrote: Emil Little is a 83 year old female. Pts daughter call needing to discuss plan of care post hospital stay. Pt was advised [id number] - DISCHARGE FOLLOW-UP: ANTICOAGULATION CLINIC Please advise. Telly Rosa [facility] 2024-01-02 11:47:54 Images from the original note were not included. TRANSITIONAL CARE MANAGEMENT ASSESSMENT 01/02/2024 Emil Little [id number] Emil Little is a 83 year old /White female was admitted on 12/29/23 to [facility], [facility] ICU. She was discharged on 01/01/24 with discharge disposition of HR- Routine Discharge. Admitting Physician: Lisandro Kowalski Discharge Diagnosis: Acute on chronic HFpEF due to hypertensive emergency Intractable nausea and vomiting likely due to uncontrolled HTN ZARA due to prerenal azotemia Linked Episodes Type: Episode: Status: Noted: Resolved: Last update: Updated by: TRANSITION OF CARE tcm Active 01/02/2024 01/02/2024 11:46 AM Maria Luisa Spicer, RN Comments: TCM [id number] outreach documentation: Discharge Assessment Chart Assessed: 01/02/24 TCM Outreach Completed: 01/02/24 Do you have a few minutes to speak with me about how you are doing at home?: Yes (Patient stated she is doing good) Discharge Instructions Do you understand your at-home instructions?: Yes Medications Have you filled your prescriptions and do you have them in your home? : See comments (Patient will call to see if prescriptions are ready) Do you know how to take your medications?: Yes Supplies Did you receive applicable home medical supplies/equipment?: N/A Follow Up Appointment Has a follow up appointment been scheduled?: No May I assist with scheduling this appointment?: Patient has outside PCP Do you have any questions about your follow up appointments?: No Are you able to get to your appointment? Who will be taking you?: Yes Home Health Assistance Has the home health nurse contacted you since you've been home?: Yes [facility] Survey - Recognition Is there anything you would like to share about your recent hospitalization, or anyone you would like to recognize?: No Do you have any suggestions for improvement?: No Do you have any other questions or concerns at this time?: No Future Appointments: Future Appointments Provider Department Dept Phone 01/30/2024 3:20 PM [facility] [phone] 06/18/2024 1:00 PM [facility] [phone] Do you have any questions about your diagnosis? No Review reason for hospitalization and diagnosis: Acute on chronic HFpEF due to hypertensive emergency Intractable nausea and vomiting likely due to uncontrolled HTN ZARA due to prerenal azotemia Are you having any worsening symptoms? No Do you know what symptoms to watch for, and when to call your doctor? No CM reviewed s/s of worsening heart failure Please give the patient contact numbers for our HF clinic or Discharging MD (Document contact information provided): Patient follows Dr Noriega skein spooler Do you understand your discharge instructions? Yes Can you explain your Fluid restrictions? No Example: 1.5L total fluid/24 hr-Specify patient's restriction: less than 2L per day Assess patient's understanding of what happens if they do not follow this restriction: * Sudden weight gain (more than 3 pounds in 1 day or 5 pounds in 1 week) * Trouble breathing at night, especially when you lie down (waking up short of breath, needing more pillows to breathe) * New or increased swelling of your legs, feet, ankles or abdomen (belly) * Shortness of breath at rest * Frequent coughing that doesn't go away * Feeling much more tired than usual, with simple activity * Irregular or rapid heartbeat * Weakness or lightheadedness Emphasize importance of adherence: Yes Can you explain your low sodium restriction? Yes Example: 2gm/day-Specify patient's restriction:less than 2000 mg per day Assess patient's understanding of what happens if they do not follow this restriction: * Sudden weight gain (more than 3 pounds in 1 day or 5 pounds in 1 week) * Trouble breathing at night, especially when you lie down (waking up short of breath, needing more pillows to breathe) * New or increased swelling of your legs, feet, ankles or abdomen (belly) * Shortness of breath at rest * Frequent coughing that doesn't go away * Feeling much more tired than usual, with simple activity * Irregular or rapid heartbeat * Weakness or lightheadedness Emphasize importance of adherence: Yes Are you engaged in physical activity? Yes Encourage/Educate (Refer to discharge instructions for activity): as tolerated Were you able to picker and packer all of your medications? Patient will picker and packer today Do you understand how to take your medications?Yes Stress importance of taking all medications as prescribed and address any questions: yes Has HF follow up appointment been scheduled? Yes May I assist with scheduling this appointment? No Patient has external Pcp Do you have any questions about your follow up appointments? No Stress importance of attending this appointment. Yes If for some reason appointment with HF Clinic is not within 7 days, please notify Nurse Program Coordinators and document outcome: na Do you have transportation to your follow up appointments? Yes Has the home health nurse contacted you since you've been home? Yes N/A Ensure they have contact info for [employer]: [facility] will come on Saturday Have you received your DME? N/A Do you have a scale? Yes Educate on daily weights, dry weight, weight log and what to do if they gain weight? Let your healthcare provider know if your weight goes up by more than 3 pounds in 1 day or 5 pounds in 1 week. This is a sign that you are retaining more fluid than you should be, which could lead to worsening heart failure. Do you have a BP/HR machine? Yes Educate on keeping a log: yes CM reviewed HF action plan and zone checks Maria Luisa Spicer RN [facility] 2024-01-01 16:11:03 Problem: Discharge Planning Goal: Adequate for discharge Outcome: Resolved Goal: Effective communication Outcome: Resolved Problem: Falls, Risk of Goal: Absence of falls Outcome: Resolved Problem: Fluid Volume - Imbalanced Goal: Absence of signs and symptoms of imbalanced fluid volume Outcome: Resolved Problem: Infection, Risk of or Actual Goal: Absence of infection Outcome: Resolved Problem: Respiratory Function - Impaired Goal: Able to cough effectively Outcome: Resolved Goal: Adequate oxygenation Outcome: Resolved Goal: Adequate work of breathing Outcome: Resolved Goal: Patent airway Outcome: Resolved Problem: Skin integrity Impaired (Risk or Actual) Goal: Prevention of new skin breakdown Outcome: Resolved Problem: Tissue Perfusion - Altered, Risk of Goal: Hemodynamically stable Outcome: Resolved Problem: Venous Thromboembolism, (actual or risk of) Goal: Absence of venous thromboembolism (Risk) Outcome: Resolved Problem: Respiratory Function - Impaired Goal: Adequate oxygenation Outcome: Resolved Problem: Cardiac Output - Decreased Goal: Cardiac output within specified parameters Outcome: Resolved Goal: Absence of signs and symptoms of decreased cardiac output Outcome: Resolved Maine Serrano RN [facility] 2024-01-01 15:51:10 Problem: Discharge Planning Goal: Adequate for discharge Outcome: Resolved Goal: Effective communication Outcome: Resolved Problem: Falls, Risk of Goal: Absence of falls Outcome: Resolved Problem: Fluid Volume - Imbalanced Goal: Absence of signs and symptoms of imbalanced fluid volume Outcome: Resolved Problem: Infection, Risk of or Actual Goal: Absence of infection Outcome: Resolved Problem: Respiratory Function - Impaired Goal: Able to cough effectively Outcome: Resolved Goal: Adequate oxygenation Outcome: Resolved Goal: Adequate work of breathing Outcome: Resolved Goal: Patent airway Outcome: Resolved Problem: Skin integrity Impaired (Risk or Actual) Goal: Prevention of new skin breakdown Outcome: Resolved Problem: Tissue Perfusion - Altered, Risk of Goal: Hemodynamically stable Outcome: Resolved Problem: Venous Thromboembolism, (actual or risk of) Goal: Absence of venous thromboembolism (Risk) Outcome: Resolved Problem: Respiratory Function - Impaired Goal: Adequate oxygenation Outcome: Resolved Problem: Cardiac Output - Decreased Goal: Cardiac output within specified parameters Outcome: Resolved Goal: Absence of signs and symptoms of decreased cardiac output Outcome: Resolved T [facility] 2024-01-01 09:55:20 Daughter notified. Pleased and verbally understood. T [facility] 2024-01-01 09:53:33 She is in the hospital and the plan is to switch to warfarin. T [facility] 2024-01-01 09:41:58 Will route to MD to see if can be routed to [facility] pharmacy for patient assistance. Pt has lost her Medicare part D. Til re enrolls January 14. Idalmis at local pharmacy $700. [facility] 2024-01-01 00:44:06 Problem: Discharge Planning Goal: Adequate for discharge Outcome: Progressing as expected Goal: Effective communication Outcome: Progressing as expected Problem: Falls, Risk of Goal: Absence of falls Outcome: Progressing as expected Problem: Fluid Volume - Imbalanced Goal: Absence of signs and symptoms of imbalanced fluid volume Outcome: Progressing as expected Problem: Infection, Risk of or Actual Goal: Absence of infection Outcome: Progressing as expected Problem: Respiratory Function - Impaired Goal: Able to cough effectively Outcome: Progressing as expected Goal: Adequate oxygenation Outcome: Progressing as expected Goal: Adequate work of breathing Outcome: Progressing as expected Goal: Patent airway Outcome: Progressing as expected Problem: Skin integrity Impaired (Risk or Actual) Goal: Prevention of new skin breakdown Outcome: Not progressing as expected Problem: Tissue Perfusion - Altered, Risk of Goal: Hemodynamically stable Outcome: Progressing as expected Problem: Venous Thromboembolism, (actual or risk of) Goal: Absence of venous thromboembolism (Risk) Outcome: Progressing as expected Problem: Respiratory Function - Impaired Goal: Adequate oxygenation Outcome: Progressing as expected Problem: Cardiac Output - Decreased Goal: Cardiac output within specified parameters Outcome: Progressing as expected Goal: Absence of signs and symptoms of decreased cardiac output Outcome: Progressing as expected Kasey Guillaume RN [facility] 2023-12-31 18:20:18 Problem: Discharge Planning Goal: Adequate for discharge Outcome: Progressing as expected Goal: Effective communication Outcome: Progressing as expected Problem: Falls, Risk of Goal: Absence of falls Outcome: Progressing as expected Problem: Fluid Volume - Imbalanced Goal: Absence of signs and symptoms of imbalanced fluid volume Outcome: Progressing as expected Problem: Infection, Risk of or Actual Goal: Absence of infection Outcome: Progressing as expected Problem: Respiratory Function - Impaired Goal: Able to cough effectively Outcome: Progressing as expected Goal: Adequate oxygenation Outcome: Progressing as expected Goal: Adequate work of breathing Outcome: Progressing as expected Goal: Patent airway Outcome: Progressing as expected Problem: Skin integrity Impaired (Risk or Actual) Goal: Prevention of new skin breakdown Outcome: Progressing as expected Problem: Tissue Perfusion - Altered, Risk of Goal: Hemodynamically stable Outcome: Progressing as expected Problem: Venous Thromboembolism, (actual or risk of) Goal: Absence of venous thromboembolism (Risk) Outcome: Progressing as expected Problem: Respiratory Function - Impaired Goal: Adequate oxygenation Outcome: Progressing as expected Problem: Cardiac Output - Decreased Goal: Cardiac output within specified parameters Outcome: Progressing as expected Goal: Absence of signs and symptoms of decreased cardiac output Outcome: Progressing as expected [facility] 2023-12-31 14:18:36 Copied from [facility] #[id number]. Topic: Clinical - Medical Advice >> Dec 31, 2023 2:16 PM Patient Etymology Teacher wrote: Emil Little is a 83 year old female. Pts daughter calling to see if provider can prescribe something as an alterative to eliquis. Please advise. Telly Rosa [facility] 2023-12-31 12:42:00 Pharmacy Note for Warfarin Monitoring Pharmacy to monitor warfarin dosing for patient Emil Little, [id number]. Indication: Atrial fibrillation/flutter Goal INR: 2-3 Warfarin dosage prior to admission: N/A (pt was on Apixaban 5mg BID) Most recent INR: 1.1 Current warfarin dosage: Warfarin 5mg Labs Reviewed Date INR Warfarin Dose Received Reversal Agents if given 12/30/23 1.2 Warfarin 5mg @ 201912/31/23 1.1 Warfarin 5mg schedule 1700 In addition, SCr (2.01), Hgb 11.8 and Platelets 125 were reviewed. Bridging anticoagulation: N/A Significant drug-drug interaction(s): Loop Diuretics may diminish the anticoagulant effect of Vitamin K Antagonists Atorvastatin does not appear to alter the pharmacodynamic effect(s) of Vitamin K Antagonists TraMADol may enhance the anticoagulant effect of Vitamin K Antagonists Sertraline: Agents with Antiplatelet Properties may enhance the anticoagulant effect of Anticoagulants GI/Diet Changes: reviewed, no dietary changes. Temp Changes: reviewed, stable. Recommendations: Baseline INR at 1.1. Hbg/Plts: 11.8/125 no reported signs/symptoms of bleeding. Recommend continuing warfarin today. Will monitor and trend INR daily. Pharmacy will continue to monitor patient while in house and make recommendations as needed. Golden Cain PharmD, [facility] Golden Cain [facility] 2023-12-30 23:12:15 Problem: Discharge Planning Goal: Adequate for discharge 12/30/2023 2311 by Kasey Guillaume RN Outcome: Progressing as expected 12/30/2023 2231 by Kasey Guillaume RN Outcome: Progressing as expected Goal: Effective communication 12/30/20232310 by Kasey Guillaume RN Outcome: Progressing as expected 12/30/20232230 by Kasey Guillaume RN Outcome: Progressing as expected Problem: Falls, Risk of Goal: Absence of falls 12/30/20232310 by Kasey Guillaume RN Outcome: Progressing as expected 12/30/20232230 by Kasey Guillaume RN Outcome: Progressing as expected Problem: Fluid Volume - Imbalanced Goal: Absence of signs and symptoms of imbalanced fluid volume 12/30/2023 231 by Kasey Guillaume RN Outcome: Progressing as expected 12/30/20232230 by Kasey Guillaume RN Outcome: Progressing as expected Problem: Infection, Risk of or Actual Goal: Absence of infection 12/30/20232310 by Kasey Guillaume RN Outcome: Progressing as expected 12/30/20232230 by Kasey Guillaume RN Outcome: Progressing as expected Problem: Respiratory Function - Impaired Goal: Able to cough effectively 12/30/20232310 by Kasey Guillaume RN Outcome: Progressing as expected 12/30/20232230 by Kasey Guillaume RN Outcome: Progressing as expected Goal: Adequate oxygenation 12/30/20232310 by Kasey Guillaume RN Outcome: Progressing as expected 12/30/20232230 by Kasey Guillaume RN Outcome: Progressing as expected Goal: Adequate work of breathing 12/30/20232310 by Kasey Guillaume RN Outcome: Progressing as expected 12/30/20232230 by Kasey Guillaume RN Outcome: Progressing as expected Goal: Patent airway 12/30/20232310 by Kasey Guillaume RN Outcome: Progressing as expected 12/30/20232230 by Kasey Guillaume RN Outcome: Progressing as expected Problem: Skin integrity Impaired (Risk or Actual) Goal: Prevention of new skin breakdown 12/30/20232310 by Kasey Guillaume RN Outcome: Not progressing as expected 12/30/20232230 by Kasey Guillaume RN Outcome: Not progressing as expected Problem: Tissue Perfusion - Altered, Risk of Goal: Hemodynamically stable 12/30/2023 231 by Kasey Guillaume RN Outcome: Not progressing as expected 12/30/20232230 by Kasey Guillaume RN Outcome: Not progressing as expected Problem: Venous Thromboembolism, (actual or risk of) Goal: Absence of venous thromboembolism (Risk) 12/30/20232310 by Kasey Guillaume RN Outcome: Progressing as expected 12/30/20232230 by Kasey Guillaume RN Outcome: Progressing as expected Problem: Respiratory Function - Impaired Goal: Adequate oxygenation 12/30/20232310 by Kasey Guillaume RN Outcome: Progressing as expected 12/30/20232230 by Kasey Guillaume RN Outcome: Progressing as expected Problem: Cardiac Output - Decreased Goal: Cardiac output within specified parameters Outcome: Not progressing as expected Goal: Absence of signs and symptoms of decreased cardiac output Outcome: Not progressing as expected [facility] 2023-12-30 22:32:17 Problem: Discharge Planning Goal: Adequate for discharge Outcome: Progressing as expected Goal: Effective communication Outcome: Progressing as expected Problem: Falls, Risk of Goal: Absence of falls Outcome: Progressing as expected Problem: Fluid Volume - Imbalanced Goal: Absence of signs and symptoms of imbalanced fluid volume Outcome: Progressing as expected Problem: Infection, Risk of or Actual Goal: Absence of infection Outcome: Progressing as expected Problem: Respiratory Function - Impaired Goal: Able to cough effectively Outcome: Progressing as expected Goal: Adequate oxygenation Outcome: Progressing as expected Goal: Adequate work of breathing Outcome: Progressing as expected Goal: Patent airway Outcome: Progressing as expected Problem: Skin integrity Impaired (Risk or Actual) Goal: Prevention of new skin breakdown Outcome: Not progressing as expected Problem: Tissue Perfusion - Altered, Risk of Goal: Hemodynamically stable Outcome: Not progressing as expected Problem: Venous Thromboembolism, (actual or risk of) Goal: Absence of venous thromboembolism (Risk) Outcome: Progressing as expected Problem: Respiratory Function - Impaired Goal: Adequate oxygenation Outcome: Progressing as expected [facility] 2023-12-30 19:59:47 Pharmacy Note for Warfarin Monitoring Pharmacy to monitor warfarin dosing for patient Emil Little, [id number]. Indication: Atrial fibrillation/flutter Goal INR: 2-3 Warfarin dosage prior to admission: N/A (pt was on Apixaban 5mg BID) Most recent INR: 1.2 Current warfarin dosage: Warfarin 5mg once Labs Reviewed Date INR Warfarin Dose Received Reversal Agents if given 12/30/23 1.2 Warfarin 5mg once scheduled In addition, SCr (0.91), Hgb and Platelets were reviewed. Bridging anticoagulation: N/A Significant drug-drug interaction(s): Loop Diuretics may diminish the anticoagulant effect of Vitamin K Antagonists Atorvastatin does not appear to alter the pharmacodynamic effect(s) of Vitamin K Antagonists TraMADol may enhance the anticoagulant effect of Vitamin K Antagonists Sertraline: Agents with Antiplatelet Properties may enhance the anticoagulant effect of Anticoagulants GI/Diet Changes: reviewed, no dietary changes/reduced intake (1/2 breakfast, ? lunch and dinner) Temp Changes: reviewed, stable. Recommendations: Baseline INR at 1.2. Hbg/Plts: 12.1/114, no reported signs/symptoms of bleeding. Recommend continuing warfarin today. Will monitor and trend INR daily. Pharmacy will continue to monitor patient while in house and make recommendations as needed. Karlo Willis PharmD, [facility] Karlo Willis [facility] 2023-12-30 09:22:26 Problem: Discharge Planning Goal: Adequate for discharge Outcome: Progressing as expected Goal: Effective communication Outcome: Progressing as expected Problem: Falls, Risk of Goal: Absence of falls Outcome: Progressing as expected Problem: Fluid Volume - Imbalanced Goal: Absence of signs and symptoms of imbalanced fluid volume Outcome: Progressing as expected Problem: Infection, Risk of or Actual Goal: Absence of infection Outcome: Progressing as expected Problem: Respiratory Function - Impaired Goal: Able to cough effectively Outcome: Progressing as expected Goal: Adequate oxygenation Outcome: Progressing as expected Goal: Adequate work of breathing Outcome: Progressing as expected Goal: Patent airway Outcome: Progressing as expected Problem: Skin integrity Impaired (Risk or Actual) Goal: Prevention of new skin breakdown Outcome: Progressing as expected Problem: Tissue Perfusion - Altered, Risk of Goal: Hemodynamically stable Outcome: Progressing as expected Problem: Venous Thromboembolism, (actual or risk of) Goal: Absence of venous thromboembolism (Risk) Outcome: Progressing as expected Talya Aguilera RN [facility] 2023-12-30 05:35:17 Problem: Discharge Planning Goal: Adequate for discharge Outcome: Progressing as expected Goal: Effective communication Outcome: Progressing as expected Problem: Falls, Risk of Goal: Absence of falls Outcome: Progressing as expected Problem: Fluid Volume - Imbalanced Goal: Absence of signs and symptoms of imbalanced fluid volume Outcome: Progressing as expected Problem: Infection, Risk of or Actual Goal: Absence of infection Outcome: Progressing as expected Problem: Respiratory Function - Impaired Goal: Able to cough effectively Outcome: Progressing as expected Goal: Adequate oxygenation Outcome: Progressing as expected Goal: Adequate work of breathing Outcome: Progressing as expected Goal: Patent airway Outcome: Progressing as expected Problem: Skin integrity Impaired (Risk or Actual) Goal: Prevention of new skin breakdown Outcome: Progressing as expected Problem: Tissue Perfusion - Altered, Risk of Goal: Hemodynamically stable Outcome: Progressing as expected Problem: Venous Thromboembolism, (actual or risk of) Goal: Absence of venous thromboembolism (Risk) Outcome: Progressing as expected Hiwot Austin RN [facility] 2023-12-29 14:08:48 Nurse Report Report given to SYLWIA Babin. Chief complaint, assessment findings, infusion verify and orders reviewed. Plan of care discussed with patient and both nurses. Patient/family members verbalized understanding. Brii Gaming RN Brii Gaming RN [facility] 2023-12-29 14:08:00 Patient admitted to [facility] [address] for diagnosis of nausea and vomiting, diarrhea, generalized abdominal pain, hypoxia, acute pulmonary edema. Patient agrees to admission, discussed plan of care with patient and family. Patient is awake, A&Ox4, RR even and unlabored on 2 L NC. Color appropriate for race. PIV intact x2. No adverse reaction to medications administered while in ED. Belongings with patient to unit. [facility] 2023-12-29 11:40:19 Lab notified of add-on BNP [facility] 2023-12-29 10:50:02 Report given to Remedios Adams RN. T [facility] 2023-12-29 10:50:00 Assumed patient care from SYLWIA Harvey T [facility] 2023-12-29 08:51:49 [facility] states: "Pt has been having diarrhea and dizziness for 2 days. 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 No bad food exposure. No sick contacts. No recent trips or travel or antibiotics. She is slightly concerned that she left some beans out yesterday that may have caused her symptoms. She also reports that she ran out of her regular prescription medications 2 days ago and she is concerned that may be causing her symptoms. No medications taken for symptoms. She reports she feels lightheaded like she might pass out but has not done so. She does have a history of diabetes, high blood pressure, CAD as well as atrial fibrillation. No medications given route prior to arrival. Here for evaluation. Past Medical History/Immunizations: Past Medical History: Diagnosis Date Atrial fibrillation CAD (coronary artery disease) s/p stents Chronic diastolic heart failure Depression Diabetes HTN (hypertension) Myocardial infarction 2014 Sleep apnea Denies CPAP Uterus cancer 1985 Tetanus received in last 5 years: Yes Allergies: Allergies Allergen Reactions Hydrocodone Nausea and/or Vomiting Diflucan [Fluconazole] Unknown - See comments Past Social History: Tobacco Use Never smoked or used smokeless tobacco. Alcohol Use No. Drug Use Never. Past Surgical History: Past Surgical History: Procedure Laterality Date ARTERIOGRAM N/A 03/12/2017 Surgeon: Malik Miller; Location: [facility] [place] CHOLECYSTECTOMY 80s HYSTERECTOMY 87 VASCULAR STENTING N/A 03/12/2017 Surgeon: Malik Miller; Location: [facility] [place] VENTRAL HERNIORRHAPHY N/A 05/11/2019 Surgeon: Lakeisha Pulido MD; [place] [facility] [place] Systems: Review of Systems Constitutional: Negative for chills and fever. Respiratory: Negative for cough and shortness of breath. Cardiovascular: Negative for chest pain. Gastrointestinal: Positive for abdominal pain, diarrhea, nausea and vomiting. Genitourinary: Negative for dysuria. Musculoskeletal: Negative for arthralgias, neck pain and neck stiffness. Skin: Negative for wound. Neurological: Negative for dizziness. Psychiatric/Behavioral: Negative for agitation. Endocrine: Negative for goiter. Physical Exam: ED Triage Vitals [12/29/23 0853] Weight 102.1 kg (225 lb) Actual or estimated Estimated by patient/family report Height 1.524 m (5') BP 132/74 Pulse 95 Resp 20 Temp 36.6 ?C (97.9 ?F) Temp source Oral SpO2 91 % Measured on Room air Physical Exam Vitals and nursing note reviewed. Constitutional: Appearance: Normal appearance. She is obese. HENT: Head: Normocephalic and atraumatic. Nose: Nose normal. Mouth/Throat: Mouth: Mucous membranes are dry. Cardiovascular: Rate and Rhythm: Normal rate and regular rhythm. Pulmonary: Effort: Pulmonary effort is normal. No respiratory distress. Abdominal: General: There is no distension. Palpations: Abdomen is soft. There is no mass. Tenderness: There is abdominal tenderness (Mild tenderness throughout). There is no guarding or rebound. Hernia: No hernia is present. Musculoskeletal: General: Normal range of motion. Cervical back: Normal range of motion and neck supple. Right lower leg: No edema. Left lower leg: No edema. Skin: General: Skin is warm and dry. Neurological: General: No focal deficit present. Mental Status: She is alert. Radiology: CT THORAX W CONTRAST Final Result CT SCAN OF THE THORAX, ABDOMEN, AND PELVIS WITH IV CONTRAST HISTORY: 83 years -old Female with Abdominal pain, acute, nonlocalized abd . Patient presented with diarrhea and dizziness for 2 days. TECHNIQUE: A CT scan of the thorax, abdomen, and pelvis was performed after the administration of intravenous contrast. Coronal and sagittal reformatted images were obtained. COMPARISON: CT abdomen pelvis dated 04/12/2023 FINDINGS: THORAX: Lower neck/thyroid: A 1.8 cm heterogenous nodule is seen in the right thyroid. Multiple subcentimeter thyroid nodules are seen in bilateral thyroid lobes. Lungs/Pleura: Normal lung volumes. Diffuse patchy groundglass opacities and interlobular septal thickening is seen. Diffuse bronchial wall thickening. Trace pleural effusions. No pneumothorax. Central airway: The central airways are clear. Thoracic aorta and great vessels: Severe calcifications of the aorta. Pulmonary arteries: Borderline pulmonary trunk measures 3 cm. The main pulmonary arteries measures 3 cm on the right and 2.9 cm on the left. Mitral annulus calcifications. Heart and pericardium: Severe coronary artery calcification. Moderate biatrial cardiomegaly. Lymph nodes: Enlarged pretracheal lymph node measuring up to 1.4 cm. Mediastinum: Unremarkable. Thoracic spine and chest wall: Age indeterminate fractures of the lateral left eighth and ninth ribs, likely subacute/acute. Chronic fractures of the right seventh and eighth ribs. Multilevel anterior bridging osteophytes (DISH type). ABDOMEN/PELVIS: LIVER: No focal lesions. No biliary ductal dilation. GALLBLADDER: Post cholecystectomy changes. Mild dilatation of the CBD up to 1 cm and intrahepatic ducts, likely related to reservoir phenomenon. SPLEEN: Mild splenomegaly with spleen measuring up to 13.2 cm in AP length.. No punctate calcified granulomas. PANCREAS: No masses or ductal dilatation. ADRENAL GLANDS: No adrenal nodules. KIDNEYS: Multifocal scarring of bilateral kidneys. Punctate nonobstructing stone measuring up to 4 mm on the right. Stable renal cysts. No hydronephrosis. Trace perinephric fat stranding, nonspecific. PERITONEUM AND RETROPERITONEUM: No free air or fluid. LYMPH NODES: No enlarged lymphadenopathy. GI TRACT: No dilatation. Colonic diverticulosis without diverticulitis. 2 focal short segment thickening of the proximal descending colon (18:43). Normal appendix. PELVIS: Mild bladder wall thickening. VESSELS: Fusiform aneurysm of the infrarenal aorta measuring up to 3.3 cm in diameter, spanning 6 cm in length. 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 Severe atherosclerotic calcifications. Perihepatic varices. Stable 2.1 cm calcified splenic aneurysm from 2021. A splenic stent is suspected. BONES AND SOFT TISSUES: Moderate degenerative changes of the thoracolumbar spine. Generalized osteopenia. IMPRESSION 1. Diffuse pulmonary edema. Bronchial wall thickening can be seen with chronic bronchitis 2. Age indeterminate fractures of the left lateral eighth and ninth ribs. Recommend correlation with point tenderness. 3. Focal thickening of the proximal descending colon may represent physiologic colonic underdistention, stricture from prior bouts of diverticulitis or neoplasm, benign or malignant. Follow-up as per clinician. 4. Mild bladder wall thickening is nonspecific and may be seen in physiologic underdistention or cystitis. 5. Predominantly biatrial cardiomegaly. Dilated pulmonary trunk and main pulmonary arteries. Findings are nonspecific but may be seen in elevated pulmonary pressure. 6. 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 Preliminary Report Dictated by Resident: Osvaldo Paulino MD., have reviewed this study and agree with the above report. CT ABDOMEN PELVIS W CONTRAST Final Result CT SCAN OF THE THORAX, ABDOMEN, AND PELVIS WITH IV CONTRAST HISTORY: 83 years -old Female with Abdominal pain, acute, nonlocalized abd . Patient presented with diarrhea and dizziness for 2 days. TECHNIQUE: A CT scan of the thorax, abdomen, and pelvis was performed after the administration of intravenous contrast. Coronal and sagittal reformatted images were obtained. COMPARISON: CT abdomen pelvis dated 04/12/2023 FINDINGS: THORAX: Lower neck/thyroid: A 1.8 cm heterogenous nodule is seen in the right thyroid. Multiple subcentimeter thyroid nodules are seen in bilateral thyroid lobes. Lungs/Pleura: Normal lung volumes. Diffuse patchy groundglass opacities and interlobular septal thickening is seen. Diffuse bronchial wall thickening. Trace pleural effusions. No pneumothorax. Central airway: The central airways are clear. Thoracic aorta and great vessels: Severe calcifications of the aorta. Pulmonary arteries: Borderline pulmonary trunk measures 3 cm. The main pulmonary arteries measures 3 cm on the right and 2.9 cm on the left. Mitral annulus calcifications. Heart and pericardium: Severe coronary artery calcification. Moderate biatrial cardiomegaly. Lymph nodes: Enlarged pretracheal lymph node measuring up to 1.4 cm. Mediastinum: Unremarkable. Thoracic spine and chest wall: Age indeterminate fractures of the lateral left eighth and ninth ribs, likely subacute/acute. Chronic fractures of the right seventh and eighth ribs. Multilevel anterior bridging osteophytes (DISH type). ABDOMEN/PELVIS: LIVER: No focal lesions. No biliary ductal dilation. GALLBLADDER: Post cholecystectomy changes. Mild dilatation of the CBD up to 1 cm and intrahepatic ducts, likely related to reservoir phenomenon. SPLEEN: Mild splenomegaly with spleen measuring up to 13.2 cm in AP length.. No punctate calcified granulomas. PANCREAS: No masses or ductal dilatation. ADRENAL GLANDS: No adrenal nodules. KIDNEYS: Multifocal scarring of bilateral kidneys. Punctate nonobstructing stone measuring up to 4 mm on the right. Stable renal cysts. No hydronephrosis. Trace perinephric fat stranding, nonspecific. PERITONEUM AND RETROPERITONEUM: No free air or fluid. LYMPH NODES: No enlarged lymphadenopathy. GI TRACT: No dilatation. Colonic diverticulosis without diverticulitis. 2 focal short segment thickening of the proximal descending colon (18:43). Normal appendix. PELVIS: Mild bladder wall thickening. VESSELS: Fusiform aneurysm of the infrarenal aorta measuring up to 3.3 cm in diameter, spanning 6 cm in length. 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 Severe atherosclerotic calcifications. Perihepatic varices. Stable 2.1 cm calcified splenic aneurysm from 2021. A splenic stent is suspected. BONES AND SOFT TISSUES: Moderate degenerative changes of the thoracolumbar spine. Generalized osteopenia. IMPRESSION 1. Diffuse pulmonary edema. Bronchial wall thickening can be seen with chronic bronchitis 2. Age indeterminate fractures of the left lateral eighth and ninth ribs. Recommend correlation with point tenderness. 3. Focal thickening of the proximal descending colon may represent physiologic colonic underdistention, stricture from prior bouts of diverticulitis or neoplasm, benign or malignant. Follow-up as per clinician. 4. Mild bladder wall thickening is nonspecific and may be seen in physiologic underdistention or cystitis. 5. Predominantly biatrial cardiomegaly. Dilated pulmonary trunk and main pulmonary arteries. Findings are nonspecific but may be seen in elevated pulmonary pressure. 6. 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 Preliminary Report Dictated by Resident: Osvaldo Paulino MD., have reviewed this study and agree with the above report. Lab Results: Lab Results CBC WITH DIFF - Abnormal Result Value Ref Range WBC 6.00 4.30 - 11.10 10*3/?L RBC 4.47 3.93 - 5.25 10*6/?L HGB 14.2 11.6 - 15.0 g/dL HCT 43.1 35.7 - 45.2 % MCV 96.4 (*) 80.6 - 95.5 fL MCH 31.8 25.9 - 32.8 pg MCHC 32.9 31.6 - 35.1 g/dL RDW-SD 52.8 (*) 39.0 - 49.9 fL RDW-CV 14.7 12.0 - 15.5 % PLT 106 (*) 166 - 358 10*3/?L MPV 10.2 9.5 - 12.9 fL IPF % 3.2 1.3 - 7.7 % NRBC/100 WBC 0.0 0.0 - 10.0 /100 WBCs NRBC x10 3 <0.01 10*3/?L GRAN MAT (NEUT) % 69.5 % IMM GRAN % 0.20 % LYMPH % 23.3 % MONO % 6.0 % EOS % 0.7 % BASO % 0.3 % GRAN MAT x10 3 (ANC) 4.17 1.88 - 7.09 10*3/uL IMM GRAN x10 3 <0.03 0.00 - 0.06 10*3/uL LYMPH x10 3 1.40 1.32 - 3.29 10*3/uL MONO x10 3 0.36 0.33 - 0.92 10*3/uL EOS x10 3 0.04 0.03 - 0.39 10*3/uL BASO x10 3 <0.03 0.01 - 0.07 10*3/uL COMP. METABOLIC PANEL (02340) - Abnormal NA 142 135 - 145 mmol/L K 3.8 3.5 - 5.0 mmol/L CL 108 98 - 108 mmol/L CO2 TOTAL 27 23 - 31 mmol/L AGAP 7 2 - 16 BUN 12 7 - 23 mg/dL GLUCOSE 146 (*) 70 - 110 mg/dL CREATININE 0.95 0.50 - 1.04 mg/dL TOTAL BILI 1.8 (*) 0.1 - 1.1 mg/dL CALCIUM 9.6 8.6 - 10.6 mg/dL T PROTEIN 8.6 (*) 6.3 - 8.2 g/dL ALBUMIN 4.1 3.5 - 5.0 g/dL ALK PHOS 125 (*) 34 - 122 U/L ALTv 39 (*) 5 - 35 U/L AST(SGOT) 109 (*) 13 - 40 U/L eGFR 60.3 mL/min/1.73m2 N-TERMINAL PRO-BNP - Abnormal NT-proBNP 2,130 (*) <=125 pg/mL LIPASE - Normal LIPASE 140 0 - 220 U/L TROPONIN I - Normal TROPONIN I 0.013 <=0.034 ng/mL MAGNESIUM - Normal MAGNESIUM 1.9 1.7 - 2.4 mg/dL MRSA / MSSA SCREEN BY PCR, NARES GLYCOSYLATED HEMOGLOBIN (A1C) POCT GLUCOSE(AGE >30DAYS) EKG: If EKG completed, see Procedure Note. Orders and Treatments: Orders Placed This Encounter Procedures CT ABDOMEN PELVIS W CONTRAST CT THORAX W CONTRAST CBC WITH DIFF COMP. METABOLIC PANEL (10857) LIPASE TROPONIN I Magnesium N-TERMINAL PRO-BNP MRSA / MSSA Screen by PCR, Nares Cbc without Diff Basic Metabolic Panel (NA, K, CL, CO2, GLUCOSE, BUN, CREATININE, CA) Hepatic Function Panel (74559) (ALB,T.PRO,BILI T,BU/BC,ALT,AST,ALK PHOS) Magnesium N-Terminal Pro-Bnp Glycosylated Hemoglobin (A1C) POCT Glucose (Age >30 Days) Consult Cardiology - For ADC Patients Only Orders Placed This Encounter Medications ondansetron (ZOFRAN (PF)) injection 4 mg NaCl 0.9% (NS) bolus infusion 500 mL iopamidol (ISOVUE 370-500 mL) injection 96 mL metoclopramide HCl (REGLAN) injection 10 mg furosemide (LASIX) injection 40 mg metoprolol (LOPRESSOR) injection 5 mg apixaban (ELIQUIS) tablet 5 mg atorvastatin (LIPITOR) tablet 80 mg furosemide (LASIX) injection 40 mg nitroglycerin (NITROSTAT) sublingual tablet 0.4 mg SERTraline (ZOLOFT) tablet 50 mg pregabalin (LYRICA) capsule 150 mg dextrose 50 % in water (D50W) injection 25 mL glucagon (GLUCAGEN DIAGNOSTIC KIT) injection 1 mg Sliding Scale Insulin - Lispro (HumaLOG) carvediloL (COREG) tablet 6.25 mg losartan (COZAAR) tablet 50 mg niCARdipine (CARDENE) 50 mg in D5W 250 mL infusion First Provider Eval: ED Events Date/Time Event User Comments 12/29/23853 Medical Screening Begins MARY NEWTON DO -- 12/29/23853 First Provider Evaluation MARY NEWTON DO -- ED COURSE Diagnosis/Impression as of 12/29/23 1422 Nausea and vomiting, unspecified vomiting type Diarrhea, unspecified type Generalized abdominal pain Hypoxia Acute pulmonary edema Procedures: Procedures MDM: Medical Decision Making The patient presents from home with EMS for evaluation for nausea, vomiting, diarrhea as well as abdominal pain started yesterday. She denies any sick contacts. She is concerned felt that something ingestion that may have triggered her symptoms. She also reports around of her routine medications 2 days ago and is concerned that may have caused her symptoms. No medications taken prior to arrival. She reports she feels lightheaded but has not passed out. She was given IV fluids and route by EMS and brought for evaluation. She does have a history of high blood pressure, diabetes, CAD as well as atrial fibrillation. Vital signs are stable in the ER. The patient is obese. She has dry mucous membranes. Her abdomen is soft but with mild tenderness throughout. She has no rebound or guarding. Her EKG shows a normal sinus rhythm, no STEMI. Will check laboratory studies including her electrolytes. Will also obtain a CT of her abdomen pelvis. Will give the patient IV fluids as well as antiemetics. Anticipate discharge home later. 1235 -the patient is continue to complain about nausea here in the ER despite no episodes of vomiting. She was given an additional dose of antiemetics which she reports has not helped her. Her laboratory studies show an elevated BNP for her compared to her baseline. The CT of her abdomen, chest and pelvis shows pulmonary edema as well as a stable infrarenal aortic aneurysm with a chronic dissection. She was given a dose of metoprolol here in the ER via IV for blood pressure control as the patient reports she is still too nauseated to take by mouth. She is also given IV Lasix here in the ER for her pulmonary edema and elevated BNP. She is also requiring supplemental oxygen which she reports she does not wear at home at baseline. She will need admission for continued management. 1320 - spoke with Dr. Kowalski with the internal medicine service who will admit the patient for continued management. Problems Addressed: Acute pulmonary edema: acute illness or injury Diarrhea, unspecified type: acute illness or injury Generalized abdominal pain: acute illness or injury Hypoxia: acute illness or injury Nausea and vomiting, unspecified vomiting type: acute illness or injury Amount and/or Complexity of Data Reviewed Independent Historian: EMS Labs: ordered. Decision-making details documented in ED Course. Radiology: ordered and independent interpretation performed. Decision-making details documented in ED Course. ECG/medicine tests: ordered and independent interpretation performed. Decision-making details documented in ED Course. Risk Prescription drug management. Decision regarding hospitalization. Flowsheet Documentation: Scoring Tools: No data recorded Disposition/Condition: ED Disposition ED Disposition Admit - ICU Condition -- Comment -- Discharge Medications: Current Discharge Medication List STOP taking these medications metoprolol tartrate 25 mg tablet Comments: Reason for Stopping: ondansetron 4 mg disintegrating tablet Comments: Reason for Stopping: furosemide 40 mg tablet Comments: Reason for Stopping: KCL 20 mEq tablet Comments: Reason for Stopping: magnesium oxide 420 mg Tab Comments: Reason for Stopping: tramadol HCl (TRAMADOL ORAL) Comments: Reason for Stopping: acetaminophen 325 mg tablet Comments: Reason for Stopping: nitroglycerin 0.4 mg sublingual tablet Comments: Reason for Stopping: clonazePAM 0.25 mg disintegrating tablet Comments: Reason for Stopping: apixaban 5 mg tablet Comments: Reason for Stopping: atorvastatin 80 mg tablet Comments: Reason for Stopping: pregabalin (LYRICA) 150 mg capsule Comments: Reason for Stopping: SERTraline (ZOLOFT) 50 mg tablet Comments: Reason for Stopping: Follow-up: Electronically signed by: Mary Newton DO 12/29/23 1423 [facility] 2023-10-09 07:57:28 Send the office note via ground fax will scan in the confirmation to patient chart once received. 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 is calling and requesting face to face notes for date of visit 05/23/2022 the ones they received had not been signed . Please advise [facility] ([place]) [phone] FAX [facility] 2023-09-19 09:42:23 Results and recommendations shared, verbalized understanding Song RN [facility] 2023-09-18 15:15:00 Images from the original note were not included. Venipuncture collection performed by clean technique on the left anticubitus. Total of 1 attempts were made. Slight pressure and a bandage/dressing were applied to the site(s). The patient experienced no complications. The following specimens were processed according to instructions and sent to [facility] laboratories per lab order on 09/18/2023 : LT BLUE SST 1 RED LAV PPT DK GREEN (LiHep) DK GREEN (SodH) NGUYEN DK BLUE (K2) DK BLUE (S) ACD Blood Culture NIPT/NTD [facility] 2023-04-12 10:30:43 Formatting of this n ote might be different from the original. Pt given discharge instructions on abdominal pain. Given prescriptions X 2 for zofran and protonix. Pt advised to follow up with pcp in 2 days. No signs of distress. Gi Harvey RN [facility] 2023-04-12 05:24:30 Formatting of this n ote might be different from the original. PT arrived with [facility] with C/O of N/V and diarrhea for 2 days, but worst today. EMS gave 4 zofran and 300 mL NS on route. María Manning RN [facility] 2023-04-12 05:21:00 Formatting of this n ote might be different from the original. 0700 Patient received at sign out CT and reassessment for upper abdominal pain, and UA See ed course for further MDM and ER course \\\\\\ Medical Decision Making See ED course for MDM Problems Addressed: Dehydration: acute illness or injury Generalized abdominal pain: acute illness or injury Hypertension, unspecified type: chronic illness or injury Hypokalemia: self-limited or minor problem Nausea: acute illness or injury Amount and/or Complexity of Data Reviewed External Data Reviewed: ECG and notes. Labs: ordered. Decision-making details documented in ED Course. Radiology: ordered. ECG/medicine tests: ordered. Risk Prescription drug management. Parenteral controlled substances. Rolando Valentin MD 04/12/23 1021 T [facility]
[2025-05-11 10:47] LABS: Absolute Lymphocytes (CBC) 1.1 K/uL (0.7-4.9); Hematocrit 38.2 % (36.0-45.0); Hemoglobin 13.1 g/dL (12.0-15.0); MCH 31.7 pg (27.0-35.0); MCHC 34.3 g/dL (32.0-36.0); MCV 92.3 fL (80-100); MPV 7.6 fL (7.6-11.3); Nucleated RBC Absolute Count 0.0 (0-0); Nucleated Red Blood Cells % 0.0 % (0-0); RBC Red Blood Cell Count 4.14 M/uL (3.86-4.86); White Blood Count 4.60 thou/uL (4.3-10.9)
[2025-05-11 11:03] LABS: Influenza A Ag Negative; Influenza B Ag Negative; SARS-CoV-2 Antigen Rapid Res Negative (Negative)
[2025-05-11 11:05] LABS: ALT/SGPT 34.0 U/L (13-56); AST/SGOT 102.0 U/L (15-37); Albumin 3.4 g/dL (3.4-5.0); Albumin/Globulin Ratio 0.8 (1.1-1.8); Alkaline Phosphatase 89.0 U/L (45-117); Anion Gap 11.1 mEq/L (5.0-15.0); BUN Blood Urea Nitrogen 17.0 mg/dL (7-18); Globulin 4.4 g/dL (2.3-3.5); Glucose Level 108.0 mg/dL (74-106); Lipase 49.0 U/L (13-75); Potassium 3.1 mEq/L (3.5-5.1)
[2025-05-11] MEDS ORDERED: POTASSIUM 25 MEQ EFFERV TAB ONE (11:46)
--- NOTE | 2025-05-11 12:01 | RAD REPORT ---
EXAMINATION: CT Abdomen Pelvis Wo Contrast CLINICAL INDICATION: Female, 85 years old. ABD PAIN TECHNIQUE: CT abdomen and pelvis was performed, without IV contrast, as per department protocol. Axia l, sagittal and coronal reconstructions were obtained. One or more of the following dose reduction techniques were used: Automated exposure control, adjustment of the mA and kV according to the patien t size, and iterative reconstruction. Unless otherwise specified, incidental findings do not require dedicated imaging follow-up. COMPARISON: 07/23/2024 FINDINGS: The lack of intravenous contrast limits the sensitivity of this exam for evaluation of solid visceral organs, vascular structures, and retroperitoneum. LOWER CHEST: Peripheral traction bronchiectasis more so along the left base, with some volume loss. A ppearance is stable, with mild partial improvement of bronchial wall thickening. LIVER: Normal in size and contour. No focal lesion. BILIARY SYSTEM: Status post cholecystectomy. SPLEEN: Normal size. No focal lesion. 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 ADRENALS: Normal; no mass. KIDNEYS AND URETERS: Normal size and contour. No hydronephrosis. Bilateral exophytic cortical cysts, largest measuring 1.9 cm on the right. These are stable. URINARY BLADDER: Normal contour. GASTROINTESTINAL TRACT: No evidence of bowel obstruction, significant free fluid, free air or abscess . Distal colonic diverticulosis. APPENDIX: Normal appendix. LYMPH NODES: No lymphadenopathy. MUSCULOSKELETAL: No acute or suspicious osseous abnormality. 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 IMPRESSION: No acute or concerning abnormalities in the abdomen or pelvis, with evaluation limited by lack of IV contrast. Stable incidental findings as above, including a stable infrarenal abdominal fusiform aneurysm. For m anagement of fusiform aneurysmal abdominal aortas: Recommend follow-up every 2 years. Note: For AAA enlargement of > 0.5 cm in 6 months or > 1 cm in 1 year, recommend vascular consultat ion. References: J Am Ayala Radiol 2013; 10(10):789-794; J Vasc Surg. 2018; 67:2-77
[2025-05-11 12:49] LABS: Sqamous Epithelial <5 /HPF (None Seen); Urine Culture Reflex Order NOT NEEDED; Urine Microscopic Reflex YN ORDER UMIC
--- NOTE | 2025-05-11 13:01 | EDPHYS ---
Physician Documentation [facility] Name: Tomasa Daniel Age: 85 yrs Sex: Female : 1940 Arrival Date: 05/11/2025 Time: 10:09 Bed 17 Private MD: ED Physician Anthony Powers HPI: 05/11 10:21 This 85 yrs old Female presents to ER via EMS with complaints of abd pain, nausea, sb4 vomiting. 10:21 Patient reports mild upper abdominal pain as well as nausea and vomiting over the past sb4 2 to 3 days. Reports 1 episode of diarrhea a few hours ago. Denies any blood in her stool. States she has been running fever, denies any chills. EMS administered Zofran and she states that her symptoms have improved. Historical: - Allergies: 10:21 Codeine; jl7 - Home Meds: 10:22 Eliquis oral [Active]; jl7 - PMHx: 10:21 Depression; Diabetes - NIDDM; Hypertension; Diverticulitis; Myocardial infarction; jl7 Atrial fibrillation; - Immunization history:: Adult Immunizations unknown. - Infectious Disease History:: Denies. - Social history:: Smoking status: unknown. ROS: 10:37 Respiratory: Negative for shortness of breath, cough, wheezing, and pleuritic chest sb4 pain, 10:37 Constitutional: Positive for fever, malaise, 10:37 Abdomen/GI: Positive for abdominal pain, nausea and vomiting, 10:37 All other systems are negative, Exam: 10:37 Head/Face: Normocephalic, atraumatic. Eyes: Extra-ocular motions intact. Periorbital sb4 areas with no swelling, redness, or edema. ENT: Mucous membranes moist. Cardiovascular: Regular rate and rhythm with a normal S1 and S2. Respiratory: No increased work of breathing, no retractions or nasal flaring. Abdomen/GI: Soft, non-tender, no distension. Skin: Warm, dry with normal turgor. Normal color with no rashes, no lesions, and no evidence of cellulitis. 10:37 Constitutional: The patient appears in no acute distress, alert, awake, Vital Signs: 10:29 BP 145 / 86; Pulse 76; Resp 15; Temp 97; Pulse Ox 95% ; Weight 97.52 kg; Height 5 ft. 2 jl7 in. ; 13:13 BP 127 / 58; Pulse 77; Resp 16; Pulse Ox 96% on R/A; jb4 10:29 Body Mass Index 39.32 (97.52 kg, 157.48 cm) 7 MDM: 10:10 Medical Screening Exam initiated sb4 10:38 Differential diagnosis: appendicitis, bowel obstruction, Cholelithiasis, sb4 diverticulitis, non-specific abd pain, pancreatitis, urinary tract infection, colitis, gastroenteritis. Care significantly affected by the following chronic conditions: Diabetes, Hypertension, Obesity. 13:01 Data reviewed: vital signs, nurses notes, EMS record, lab test result(s), radiologic sb4 studies, and as a result, I will discharge patient. Counseling: I had a detailed discussion with the patient and/or guardian regarding the historical points, exam findings, and any diagnostic results supporting the discharge/admit diagnosis, the presence of at least one elevated blood pressure reading (>120/80) during this emergency department visit, lab results, radiology results, the need for outpatient follow up, for definitive care, to return to the emergency department if symptoms worsen or persist or if there are any questions or concerns that arise at home. 13:06 Consideration of Admission/Observation Escalation of care including sb4 admission/observation considered. Historians other than the Patient: Daughter/Son: daughter. Special discussion: Based on the patient's Hx, exam, and Dx evaluation, there is no indication for emergent surgery or inpatient Tx. It is understood by the patient/guardian that if the Sx's persist or worsen they need to return immediately for re-evaluation. I discussed with the patient/guardian in detail that at this point there is no indication for admission to the hospital. It is understood, however, that if the symptoms persist or worsen the patient needs to return immediately for re-evaluation. 05/11 10:22 Order name: CBC with Diff; Complete Time: 10:51 sb4 05/11 10:22 Order name: CMP; Complete Time: 11:06 sb4 05/11 10:22 Order name: Lipase; Complete Time: 11:06 sb4 05/11 10:22 Order name: UA Rfx Pato Cult if indicated; Complete Time: 12:57 sb4 05/11 10:22 Order name: COVID-19 Ag + Flu A+B Ag; Complete Time: 11:04 sb4 05/11 11:06 Order name: CT Abd/Pelvis - Without Contrast; Complete Time: 12:02 sb4 05/11 10:22 Order name: IV Saline Lock; Complete Time: 10:36 sb4 05/11 10:22 Order name: Labs collected and sent; Complete Time: 10:36 sb4 Administered Medications: 10:36 Drug: NS 0.9% IV 1000 ml IV at 1 bolus Per protocol; to be given as a bolus over 60 bp minutes Route: IV; Rate: 1 bolus; Site: right forearm; 13:39 Follow up: Response: No adverse reaction; IV Status: Completed infusion; IV Intake: jb4 1000ml 11:48 Drug: Potassium PO Effervescent Tablet 50 mEq PO once; dissolve in 4 ounces of water or me1 juice Route: PO; 13:39 Follow up: Response: No adverse reaction; No adverse reaction, pt unable to finish jb4 potassium, provider notifed, no new orders 13:20 Drug: metoCLOPramide IVP 10 mg IVP once; over 1 to 2 minutes Route: IVP; Site: right jb4 forearm; 13:38 Follow up: Response: No adverse reaction jb4 Disposition: 18:29 Co-signature as Attending Physician, Anthony Powers MD I reviewed the patient's care rn provided by the Advanced Practice Provider and agree with the diagnosis and treatment plan. Disposition Summary: 05/11/25 13:00 Discharge Ordered Notes: Location: Home sb4 Problem: new sb4 Symptoms: have improved sb4 Condition: Stable sb4 Diagnosis - Viral gastroenteritis sb4 Followup: sb4 - With: Emergency Department - When: As needed - Reason: Trouble breathing, Worsening of condition Discharge Instructions: - Discharge Summary Sheet sb4 - Viral Gastroenteritis, Adult, [id number] sb4 - Rehydration, Elderly sb4 Forms: - Patient Portal Instructions sb4 - Leadership Thank You Letter sb4 Prescriptions: - Reglan 10 mg Oral tablet - take 1 tablet ORAL route every 6 hours As needed; 100 tablet; Refills: 0, sb4 Product Selection Permitted Signatures: Dispatcher [employer] Anthony Mcmanus MD MD rn Bryson, James, RN RN jb4 Gosia Kohler RN RN jl7 Dhaval Lester RN RN bp Brown, Sophia, PA-C PAGen sb4 Eddleman, Alma, RN RN me1 Corrections: (The following items were deleted from the chart) 11:07 Abdomen Pelvis Wo Con+CT.RAD.BRZ ordered. EDMS EDMS 10:22 Abdomen Pelvis W Con+CT.RAD.BRZ ordered. EDMS EDMS
--- NOTE | 2025-05-11 13:01 | ER ---
Nurse's Notes [facility] Name: Tomasa Daniel Age: 85 yrs Sex: Female : 1940 Arrival Date: 05/11/2025 Time: 10:09 Bed 17 Private MD: Diagnosis: Viral gastroenteritis Presentation: 05/11 10:20 Chief complaint: EMS states: N/V x 3 days, [employer] called EMS. Coronavirus screen: [facility] Client presents with at least one sign or symptom that may indicate coronavirus-19. Ebola Screen: No symptoms or risks identified at this time. Initial Sepsis Screen: Does the patient meet any 2 criteria?. Risk Assessment: Do you want to hurt yourself or someone else? Patient reports no desire to harm self or others. 10:20 Method Of Arrival: EMS: [facility] 10:20 Acuity: DONA 3 7 Triage Assessment: 10:20 General: Appears in no apparent distress. Behavior is cooperative, appropriate for age, bp anxious. Pain: Complains of pain in abdomen. EENT: No deficits noted. Neuro: No deficits noted. Cardiovascular: Rhythm is sinus rhythm. Respiratory: No deficits noted. GI: Reports lower abdominal pain, nausea, vomiting. : No signs and/or symptoms were reported regarding the genitourinary system. Derm: No deficits noted. Musculoskeletal: No deficits noted. Historical: - Allergies: 10:21 Codeine; jl7 - Home Meds: 10:22 Eliquis oral [Active]; jl7 - PMHx: 10:21 Depression; Diabetes - NIDDM; Hypertension; Diverticulitis; Myocardial infarction; jl7 Atrial fibrillation; - Immunization history:: Adult Immunizations unknown. - Infectious Disease History:: Denies. - Social history:: Smoking status: unknown. Screenin:37 [facility] ED Fall Risk Assessment (Adult) History of falling in the last 3 months, jb4 including since admission No falls in past 3 months (0 pts) Confusion or Disorientation No (0 pts) Intoxicated or Sedated No (0 pts) Impaired Gait No (0 pts) Mobility Assist Device Used No (0 pt) Altered Elimination No (0 pt) Score/Fall Risk Level 0 - 2 = Low Risk Oriented to surroundings, Maintained a safe environment. Abuse screen: Denies threats or abuse. Nutritional screening: No deficits noted. Tuberculosis screening: No symptoms or risk factors identified. Assessment: 12:07 Reassessment: Patient appears in no apparent distress at this time. Patient and/or jb4 family updated on plan of care and expected duration. Pain level reassessed. Patient is alert, oriented x 3, equal unlabored respirations, skin warm/dry/pink. Pt changed by magnetic testing technician and put on pure wick, given warm blanket per request. 12:44 Reassessment: Patient appears in no apparent distress at this time. Patient and/or jb4 family updated on plan of care and expected duration. Pain level reassessed. Patient is alert, oriented x 3, equal unlabored respirations, skin warm/dry/pink. 13:37 Reassessment: Patient appears in no apparent distress at this time. Patient and/or jb4 family updated on plan of care and expected duration. Pain level reassessed. Patient is alert, oriented x 3, equal unlabored respirations, skin warm/dry/pink. Vital Signs: 10:29 BP 145 / 86; Pulse 76; Resp 15; Temp 97; Pulse Ox 95% ; Weight 97.52 kg; Height 5 ft. 2 jl7 in. ; 13:13 BP 127 / 58; Pulse 77; Resp 16; Pulse Ox 96% on R/A; jb4 10:29 Body Mass Index 39.32 (97.52 kg, 157.48 cm) jl7 ED Course: 10:09 Patient arrived in ED. bd 10:10 [facility] sb4 10:10 Anthony Powers MD is Attending Physician. sb4 10:21 Triage completed. jl7 10:22 Arm band placed on right wrist. jl7 10:28 Alma Espinal, SYLWIA is Primary Nurse. me1 10:37 Initial lab(s) drawn, by nd, sent to lab. COVID swab sent to lab. Flu and/or RSV swab bp sent to lab. Maintain EMS IV. Dressing intact. Good blood return noted. Site clean \T\ dry. Gauge \T\ site: 20 RFA. Flushed with 10 mL NS. 11:19 CT Abd/Pelvis - Without Contrast In Process Unspecified. EDMS 13:37 Patient has correct armband on for positive identification. Bed in low position. Call jb4 light in reach. Side rails up X 1. Provided Education on: discharge instructions.. 13:37 No provider procedures requiring assistance completed. intact, bleeding controlled, No jb4 redness/swelling at site. Pressure dressing applied. Administered Medications: 10:36 Drug: NS 0.9% IV 1000 ml IV at 1 bolus Per protocol; to be given as a bolus over 60 bp minutes Route: IV; Rate: 1 bolus; Site: right forearm; 13:39 Follow up: Response: No adverse reaction; IV Status: Completed infusion; IV Intake: jb4 1000ml 11:48 Drug: Potassium PO Effervescent Tablet 50 mEq PO once; dissolve in 4 ounces of water or me1 juice Route: PO; 13:39 Follow up: Response: No adverse reaction; No adverse reaction, pt unable to finish jb4 potassium, provider notifed, no new orders 13:20 Drug: metoCLOPramide IVP 10 mg IVP once; over 1 to 2 minutes Route: IVP; Site: right jb4 forearm; 13:38 Follow up: Response: No adverse reaction jb4 Medication: 13:37 VIS not applicable for this client. jb4 Intake: 13:39 IV: 1000ml; Total: 1000ml. jb4 Outcome: 13:00 Discharge ordered by . sb4 13:37 Discharged to home via wheelchair, with family, jb4 13:37 Condition: stable 13:37 Discharge instructions given to patient, Instructed on discharge instructions, follow up and referral plans. medication usage, Demonstrated understanding of instructions, follow-up care, medications, Prescriptions given X 1, 13:40 Patient left the ED. jb4 Signatures: Dispatcher [employer] EDZaida Rowe James, RN RN jb4 Gosia Kohler RN RN jl7 Dhaval Lester RN RN bp Brown, Sophia, PA-C PA-C sb4 Alma Espinal RN RN me1 Corrections: (The following items were deleted from the chart) 13:39 13:13 Response: No adverse reaction jb4 jb4
[2025-05-11] MEDS ORDERED: METOCLOPRAMIDE 10 MG/2mL INJ ONE (13:16)
[2025-05-11 16:24] VITALS: TEMP 97
[2025-05-11 16:28] VITALS: BP 127/58; O2SAT 96
== END 2025-05-11 13:40 | disposition home or self-care (01) ==
LOC: ER 10:15
DX: A08.4 Viral intestinal infection, unspecified (principal); Z11.52 Encounter for screening for COVID-19; I48.91 Unspecified atrial fibrillation; Z79.01 Long term (current) use of anticoagulants
CPT/HCPCS: 96361; 85025; 81001; 36415; 83690; 80053; 74176; 96374; 99284; 87428; J2765; J7030